=== PATIENT | female | born 2000 | race Caucasian/White ===

== ENCOUNTER 2023-11-06 03:23 | Emergency (ER) | payer BC, SELFPAY ==
[2023-11-06 03:32] VITALS: BP 138/74; PULSE 77; TEMP 36.8; O2SAT 100; BMI 16.3
--- NOTE | 2023-11-06 03:43 | ED_ITS ---
HPI - Abdominal Pain General Chief Complaint: Abdominal Pain Stated Complaint: ABDOMINAL PAIN Time Seen by Provider: 11/06/23 03:27 Source: patient Mode of arrival: walk-in Limitations: no limitations History of Present Illness HPI narrative: 23-year-old female presents for abdominal burning. She has been having issues this past week. She describes a burning sensation from below her ribs all the way down to the lower part of her abdomen. She threw up once. She has not been constipated and has had no diarrhea trauma or fever. Denies any back pain. Related Data Previous Rx's ?Medication ?Instructions ?Recorded omeprazole 40 mg capsule,delayed 40 mg PO DAILY #20 caps 11/06/23 release Allergies Allergy/AdvReac Type Severity Reaction Status Date / Time No Known Drug Allergies Allergy Verified 11/06/23 03:32 Review of Systems ROS Narrative A ten point review of systems is negative except as noted above. Exam Narrative Exam Narrative: Nurses note and vital signs reviewed and patient is not hypoxic. General: The patient appears well and in no apparent distress. Patient is rest ing comfortably on cart. Skin: Warm, dry, no pallor noted. There is no rash noted. Head: Normocephalic, atraumatic Eye: Normal conjunctiva, no drainage Ears, Nose, Mouth, and Throat: oral mucosa is moist. Nares patent. Cardiovascular: Regular Rate and Rhythm Respiratory: Patient is in no distress, no accessory muscle use, lungs are clear to auscultation, no wheezing, rales or rhonchi Back: non-tender GI: Normal bowel sounds, minimal tenderness to palpation, no masses appreciated. No rebound, guarding, or rigidity noted. Musculoskeletal: The patient has no evidence of calf tenderness, no pitting edema, symmetrical pulses noted bilaterally Neurological: A&O, normal speech Psychiatric: Cooperative Constitutional Vital Signs, click to edit/add: Last Vital Signs Temp 98.2 F 11/06/23 03:32 Pulse 77 11/06/23 03:32 Resp 18 11/06/23 03:32 BP 138/74 11/06/23 03:32 Pulse Ox 100 11/06/23 03:32 O2 Del Method Room Air 11/06/23 03:32 Course Vital Signs Vital signs: Vital Signs Temperature 98.2 F 11/06/23 03:32 Pulse Rate 77 11/06/23 03:32 Respiratory Rate 18 11/06/23 03:32 Blood Pressure 138/74 11/06/23 03:32 Pulse Oximetry 100 11/06/23 03:32 Oxygen Delivery Method Room Air 11/06/23 03:32 Temperature 98.2 F 11/06/23 03:32 Pulse Rate 77 11/06/23 03:32 Respiratory Rate 18 11/06/23 03:32 Blood Pressure 138/74 11/06/23 03:32 Pulse Oximetry 100 11/06/23 03:32 Oxygen Delivery Method Room Air 11/06/23 03:32 MDM - Abdominal Pain MDM Narrative Medical decision making narrative: Laboratory analysis is negative. She is not . Urinalysis also negativ e. KUB on my interpretation shows no acute findings. She is placed on omeprazole and will follow-up with her doctor if symptoms persist. Treatment diagnosis and follow-up were discussed with the patient. I have no clinical suspicion for acute appendicitis. Differential Diagnosis Differential diagnosis: Likely abdominal pain, calculus of kidney, constipation, gastroenteritis and pancreatitis Lab Data Attestation: I reviewed the patient's lab results. Labs: Lab Results 11/06/23 11/06/23 Range/Units 03:48 03:52 WBC 7.9 (4.0-11.0) 10^3/uL RBC 4.56 (4.20-5.40) 10^6/uL Hgb 13.7 (12.0-16.0) g/dL Hct 41.7 (36.0-48.0) % MCV 91.4 (81.0-99.0) fL MCH 30.0 (26.7-34.0) pg MCHC 32.9 (29.9-35.2) g/dL RDW 12.5 (11.0-15.0) % Plt Count 316 (150-450) 10^3/uL MPV 9.5 (9.5-13.5) fL Neut % (Auto) 50.0 (43.0-75.0) % Lymph % (Auto) 38.4 (20.5-60.0) % Whiteside % (Auto) 10.1 (1.7-12.0) % Eos % (Auto) 1.0 (0.9-7.0) % Baso % (Auto) 0.4 (0.2-2.0) % Neut # (Auto) 3.9 (1.4-6.5) 10^3/uL Lymph # (Auto) 3.0 (1.2-3.8) 10^3/uL Whiteside # (Auto) 0.8 (0.3-0.8) 10^3/uL Eos # (Auto) 0.1 (0.0-0.7) 10^3/uL Baso # (Auto) 0.0 (0.0-0.1) 10^3/uL Abs Immat Gran (auto) 0.01 (0.00-0.03) 10^3/uL Imm/Tot Granulo (auto) 0.1 (0.0-0.5) % Sodium 137 (136-145) mmol/L Potassium 3.9 (3.5-5.1) mmol/L Chloride 103 (98-107) mmol/L Carbon Dioxide 27.1 (21.0-32.0) mmol/L Anion Gap 10.8 BUN 12.0 (7.0-18.0) mg/dL Creatinine 0.62 (0.55-1.02) mg/dL Est GFR ( Amer) >60 (>=60) Est GFR (Non-Af Amer) >60 (>=60) BUN/Creatinine Ratio 19.4 Glucose 98 (74-106) mg/dL Calcium 9.1 (8.5-10.1) mg/dL Total Bilirubin 0.3 (0.2-1.0) mg/dL Direct Bilirubin 0.1 (0.0-0.2) mg/dL AST 11 L (15-37) U/L ALT 21 (14-59) U/L Alkaline Phosphatase 51 (46-116) U/L Total Protein 7.7 (6.4-8.2) g/dL Albumin 4.0 (3.4-5.0) g/dL Globulin 3.7 g/dL Albumin/Globulin Ratio 1.1 Amylase 63 (25-115) U/L Lipase 39.0 (16.0-77.0) U/L Serum HCG, Qual Negative (NEGATIVE) Urine Color Yellow (YELLOW) Urine Clarity Clear (CLEAR) Urine pH 5.5 (5.0-9.0) Ur Specific [place] >=1.030 A (1.005-1.025) Urine Protein Negative (NEG/TRACE) mg/dL Urine Glucose (UA) Negative (NEGATIVE) mg/dL Urine Ketones Negative (NEGATIVE) mg/dL Urine Occult Blood Negative (NEGATIVE) Urine Nitrite Negative (NEGATIVE) Urine Bilirubin Negative (NEGATIVE) Urine Urobilinogen 0.2 (0.2-1.0) EU/dL Ur Leukocyte Esterase Negative (NEGATIVE) Urine RBC None seen (0-2) #/HPF Urine WBC None seen (NONE SEEN) #/HPF Ur Squamous Epith Cells Few A (NONE/RARE) #/LPF Urine Crystals None seen (None Seen) #/HPF Urine Bacteria None seen (NONE SEEN) #/HPF Urine Casts None seen (NONE SEEN) #/LPF Urine Mucus Trace A (NONE SEEN) Ur Culture Indicated? No Imaging Data Abdominal x-ray: My impression: No acute findings Discharge Plan Discharge Stand Alone Forms: Portal Instructions Chief Complaint: Abdominal Pain Clinical Impression: Abdominal pain Patient Disposition: Home, Self-Care Time of Disposition Decision: 04:36 Condition: Good Mode of Transportation: Private Vehicle Prescriptions / Home Meds: New omeprazole 40 mg capsule,delayed release(DR/EC) 40 mg PO DAILY Qty: 20 0RF Print Language: Slovak Instructions: Abdominal Pain (ED) Referrals: EMELI HANSEN DO [Primary Care Provider] - 1 week
[2023-11-06 03:58] LABS: Bilirubin Urine NEGATIVE (NEGATIVE); Blood Urine NEGATIVE (NEGATIVE); Clarity Urine CLEAR (CLEAR); Color Urine YELLOW (YELLOW); Glucose Urine UA NEGATIVE (NEGATIVE); Ketones Urine NEGATIVE (NEGATIVE); Leukocyte Esterase Urine NEGATIVE (NEGATIVE); Nitrite Urine NEGATIVE (NEGATIVE); Protein Urine NEGATIVE (NEG/TRACE); Specific Gravity Urine >=1.030 (1.005-1.025); Urobilinogen Urine 0.2 EU/dL (0.2-1.0); pH Urine 5.5 (5.0-9.0)
[2023-11-06 03:58] LABS: Basophils Percent Auto 0.4 % (0.2-2.0); Eosinophils Absolute Auto 0.1 10^3/uL (0.0-0.7); Hematocrit 41.7 % (36.0-48.0); Hemoglobin 13.7 g/dL (12.0-16.0); Immature Granulocytes Abs Auto 0.01 10^3/uL (0.00-0.03); Immature Granulocytes Pct Auto 0.1 % (0.0-0.5); Lymphocytes Percent Auto 38.4 % (20.5-60.0); Mean Corpuscular HGB Conc 32.9 g/dL (29.9-35.2); Mean Corpuscular Volume 91.4 fL (81.0-99.0); Mean Platelet Volume 9.5 fL (9.5-13.5); Monocytes Absolute Auto 0.8 10^3/uL (0.3-0.8); Monocytes Percent Auto 10.1 % (1.7-12.0); Neutrophils Absolute Auto 3.9 10^3/uL (1.4-6.5); Platelet Count 316 10^3/uL (150-450); Red Blood Count 4.56 10^6/uL (4.20-5.40); Red Cell Distribution Width 12.5 % (11.0-15.0); White Blood Count 7.9 10^3/uL (4.0-11.0)
--- NOTE | 2023-11-06 04:00 | XR_ITS ---
The [address] [address] Patient Name: KYLE LANDRY MRN: [id number] date: 2000 Sex: F Assigned Patient Location: ER Current Patient Location: Accession/Order Number: [id number] Exam Date: 11/06/2023 04:20 Report Date: 11/06/2023 06:37 At the request of: KAYLI ENRIQUEZ Procedure: XR abdomen 1V HISTORY: Abdominal pain with burning sensations and vomiting for the past week. XR abdomen 1V: 11/06/2023 4:20 AM EDT COMPARISON: None. FINDINGS: A supine view the abdomen was obtained. There is a moderate to large amount of stool throughout the colon. No dilated air-filled loops of small bowel are seen. There are no abnormal calcifications. XR/XR abdomen 1V IMPRESSION: 1. Nonobstructive bowel gas pattern. 2. There is a moderate to large amount of stool throughout the colon suggestive of constipation. Electronically authenticated by: NHAN LAMB Date: 11/06/2023 06:37
[2023-11-06 04:05] LABS: Bacteria Urine NONE SEEN #/HPF (NONE SEEN); Cast Seen? NONE SEEN #/LPF (NONE SEEN); Crystals Seen? None Seen #/HPF (None Seen); Mucus Urine TRACE (NONE SEEN); RBC Urine NONE SEEN #/HPF (0-2); Squamous Epithelial Cell Urine FEW #/LPF (NONE/RARE); Urine Culture Indicated NO; WBC Urine NONE SEEN #/HPF (NONE SEEN)
[2023-11-06 04:12] LABS: HCG Qualitative NEGATIVE (NEGATIVE)
[2023-11-06 04:13] LABS: Alanine Aminotransferase 21 U/L (14-59); Albumin Globulin Ratio 1.1; Alkaline Phosphatase 51 U/L (46-116); Amylase 63 U/L (25-115); Anion Gap 10.8; Aspartate Amino Transferase 11 U/L (15-37); BUN Creatinine Ratio 19.4; Bilirubin Direct 0.1 mg/dL (0.0-0.2); Bilirubin Total 0.3 mg/dL (0.2-1.0); Calcium 9.1 mg/dL (8.5-10.1); Carbon Dioxide 27.1 mmol/L (21.0-32.0); Chloride 103 mmol/L (98-107); Estimated GFR (African America >60 (>=60); Estimated GFR (Non-African Ame >60 (>=60); Globulin 3.7 g/dL; Glucose 98 mg/dL (74-106); Potassium 3.9 mmol/L (3.5-5.1); Sodium 137 mmol/L (136-145); Total Protein 7.7 g/dL (6.4-8.2)
[2023-11-06 04:40] VITALS: BP 130/68; PULSE 82; O2SAT 99
== END 2023-11-06 04:44 | disposition home or self-care (01) ==
PROVIDERS: Emergency Provider Emergency Medicine; PCP Family Medicine
DX: R10.9 Unspecified abdominal pain (principal)
CPT/HCPCS: 36415; 74018; 80048; 80076; 81001; 82150; 83690; 84703; 85025; 99284

== ENCOUNTER 2024-12-10 20:30 | Emergency (ER) | payer OTHER, SELFPAY ==
[2024-12-10 20:32] VITALS: BP 140/88; PULSE 88; TEMP 36.6; O2SAT 99; BMI 18.0
--- OUTSIDE RECORDS SUMMARY | 2024-12-10 20:36 | XMS_ITS | Clinical Summary ---
Author Organization [facility] Address [address] [place] [address] [place] [address] Care Team Providers Care Supervisor [employer] Name Role Phone Unavailable Primary Care Provider Unavailabl e Allergies No known active allergies Medications polyethylene glycol (MiraLax) 17 GM/SCOOP Powder powder 1 capful (17g) in 4-8 ounces of beverage PO QHS 527 g 12/30/2020 Active Social History Tobacco Use Types Packs/Day Years Used Date Smoking Tobacco: Never Smokeless Tobacco: Never Alcohol Use Standard Drinks/Week Comments Yes 0 (1 standard drink = 0.6 oz pur e alcohol) social Comments No Sex and Gender Information Value Date Recorded Sex Assigned at Not on file Legal Sex Female 10:38 PM EDT Gender Identity Not on file Sexual Orientation Not on file Last Filed Vital Signs Vital Sign Reading Time Taken Comments Blood Pressure 135/83 12/29/2020 11:45 PM EDT Pulse 91 12/29/2020 11:45 PM EDT Temperature 36.7 C (98 F) 12/29/2020 5:12 PM EDT Respiratory Rate 16 12/29/2020 11:45 PM EDT Oxygen Saturation 100% 12/29/2020 11:45 PM EDT Inhaled Oxygen Concentration - - Weight - - Height 160 cm (5' 3 ) 12/29/2020 5:13 PM EDT Body Mass Index - - Plan of Treatment Health Maintenance Due Date Last Done Comments HEPATITIS C VIRUS SCREENING 2000 TETANUS 2000 HIV SCREENING DISCUSSION 2013 HPV VACCINE ADOL (1 - 3-dose series) 2013 HPV VACCINE (1 - 3-dose series) 2013 HEP B VACCINE (1 of 3 - 19+ 3-dose series) 2017 TDAP (ADULT) 2017 CERVICAL CANCER SCREENING DISCUSSION 10/17/2019 CHLAMYDIA SCREEN 12/29/2021 12/29/2020 GONORRHEA SCREEN 12/29/2021 12/29/2020 COVID-19 VACCINE (1 - 2023-2 5 season) 2024 INFLUENZA VACCINE (#1) 2025 PNEUMOCOCCAL VACCINE SERIES Aged Out No longer eligible based on patient's age to complete this topic Procedures Procedure Name Priority Date/Time Associated Diagnosis Comments CHLAMYDIA & GONORRHEA AMPLIFIED PROBE Routine 12/29/2020 9:03 PM EDT from Last 3 Months or Most Recently Relevant to Health Maintenance Results * CHLAMYDIA & GONORRHEA AMPLIFIED PROBE (12/29/2020 9:03 PM EDT) Chlamydia trachomatis Amplified Probe Not Detected Not Detected, Indeterminate 12/30/2020 8:13 PM EDT [facility] Neisseria gonorrhea Amplified Probe Not Detected Not Detected 12/30/2020 8:13 PM EDT [facility] Genital Fluid/Swab CERVICAL SWAB / Unknown 12/29/2020 9:03 PM EDT 12/29/2020 9:19 PM EDT [facility] - 12/30/2020 8:13 PM EDT This test was performed using a real time PCR assay. Ac Arvizu MD MICROBIOLOGY - GENERAL ORDERABLE S Final Result [facility] [address] [place] [address] from Last 3 Months or Most Recently Relevant to Health Maintenance Insurance [facility] PPO POS
--- OUTSIDE RECORDS SUMMARY | 2024-12-10 20:36 | XMS_ITS | CCD ---
Author Organization [facility] Care Team Providers Care [address] Pressman Name Role Phone MARY VERGARA Unavailable Unavailable MARY VERGARA Unavailable Unavailable NO, PHYSICIAN Unavailable Unavailable MITCH HANSEN Primary Care Unavailable WARD SERNA Admitting Unavailable WARD SERNA Attending Unavailable WARD SERNA Consulting Unavailable No, Physician Primary Care Provider UnavailVANCE Bond Attending Unavailable VANCE DAS Admitting Unavailable NO, PHYSICIAN Primary Care Unavailable BRISEIDA HINDS Attending Unavailable Unavailable Primary Care Provider UnavailPaulette Haque Unavailable ASH BROCK Attending Unavailable Medications Current Medications Medication Drug Class(es) Dates Sig (Normalized) Sig (Original) dextromethorphan hydrobromide 1.5 mg/ml / pyrilamine maleate 1.5 mg/ml oral solution (1 source) Uncompetitive R-pyjyza-Z-asparta te Receptor Antagonist, Sigma-1 Agonist Start: 3 take 10 mL by mouth every eight hours [place] DM 7.5-7.5 MG/5ML 10 mL Orally every 8 hours for 5 days Feb, Active methylPREDNISolone 4 mg oral tablet (1 source) Corticosteroid Start: 3 methylPREDNISolone 4 MG as directed Orally for daily dose take half with breakfast, half with dinner for 6 days Feb, Active ondansetron 4 mg disintegrating oral tablet (1 source) Serotonin-3 Receptor Antagonist Start: 8 take 1 tablet by mouth every eight hours as needed ondansetron (ZOFRAN ODT) 4 MG disintegrating tablet Dissolve 1 (one) tablet (4 mg total) on top of tongue every 8 (eight) hours as needed for nausea . 20 tablet 0 05/02/2018 Active polyethylene glycol 3350 80831 mg powder for oral solution (1 source) Osmotic Laxative Start: polyethylene glycol (MiraLax) 17 GM/SCOOP Powder powder 1 capful (17g) in 4-8 ounces of beverage PO QHS 527 g 0 12/30/2020 Active Start: 12-30-2020 polyethylene g lycol (MiraLax) 17 GM/SCOOP Powder powder 1 capful (17g) in 4-8 ounces of beverage PO QHS 527 g 0 12/30/2020 Active Completed/Discontinued Medications Medication Drug Class(es) Dates Sig (Normalized) Sig (Original) magnesium citrate 58.2 mg/ml oral solution (1 source) Start: 12-29-2020 End: 12-29-2020 magnesium citrate (MAGCITRATE) oral solution 296 mL 1000 ml sodium chloride 9 mg/ml injection (2 sources) Start: 04-13-2020 End: 04-13-2020 sodium chloride 0.9% (NS) bolus 1,000 mL Problems Active Problems Problem Classification Problem Date Documented Da te Episodic/Chronic Abdominal pain (1 source) Abdominal pain; Translations: [Abdominal pain, unspecified abdominal location] Episodic Cardiac dysrhythmias (2 sources) Tachycardia, unspecified; Translations: [Tachycardia, unspecified] Onset: 05-02-2018 Episodic Fluid and electrolyte disorders (2 sources) Dehydration; Translations: [Dehydration] Onset: 05-02-2018 Episodic Other gastrointestinal disorders (3 sources) Diarrhea, unspecified; Translations: [DIARRHEA UNSPECIFIED] Onset: 05-22-2018 Episodic Other upper respiratory infections (1 source) Acute upper respiratory infection, unspecified Episodic Poisoning by nonmedicinal substances (1 source) Toxic effect of other specified noxious substances eaten as food, accidental (unintentional), initial encounter; Translations: [TOX EFF NOX SUBSTANC EATEN ACC INIT] Onset: 05-24-2018 Spondylosis; intervertebral disc disorders; other back problems (1 source) Acute low back pain; Translations: [Acute bilateral low back pain without sciatica] Episodic Urinary tract infections (2 sources) Acute pyelonephritis; Translations: [Acute pyelonephritis] Onset: 05-02-2018 Episodic Past or Other Problems Problem Classification Problem Date Documented Da te Episodic/Chronic Other gastrointestinal disorders (1 source) Constipation; Translations: [Constipation, unspecified] Episodic Results Test Name Value Interpretation Reference Range Facil ity EXTRA MICROon 12-30-2020 [facility] URINE DIPSTICK; REFLEX MICRO SCOPY; REFLEX CULTURE PERFORMABLEon 12-30-2020 Appearance (U) Clear Normal Clear [facility] Comment on above: Performed By: #### L [id number] #### [facility] (DEFAULT) [address] [place] [address] 72017 Blood Urine Negative Normal Negative [facility] Comment on above: Performed By: #### L [id number] #### [facility] (DEFAULT) [address] [place] [address]62 Color (U) Yellow Normal Yellow [facility] Comment on above: Performed By: #### L [id number] #### [facility] (DEFAULT) [address] [place] [address] 60252 Glucose Ql (U) Negative Normal Negative [facility] Comment on above: Performed By: #### L [id number] #### [facility] (DEFAULT) [address] [place] [address] 42723 Ketones Ql (U) 15 mg/dL = Small Abnormal Negative [facility] Comment on above: Performed By: #### L [id number] #### [facility] (DEFAULT) [address] [place] [address] 92793 Leukocyte esterase Test strip Ql (U) Negative Normal Negative [facility] Comment on above: Performed By: #### L [id number] #### [facility] (DEFAULT) [address] [place] [address] 93458 Nitrites Urine Negative Normal Negative [facility] Comment on above: Performed By: #### L [id number] #### [facility] (DEFAULT) [address] [address] pH (U) 5.0 [pH] Normal 5.0-7.0 [facility] Comment on above: Performed By: #### L [id number] #### [facility] (DEFAULT) [address] [place] [address] 35086 Protein Urine Trace Abnormal Negative [facility] Comment on above: Performed By: #### L [id number] #### [facility] (DEFAULT) [address] [address] Specific [place] Urine >=1.030 Normal >1.001-<1.035 [facility] Comment on above: Performed By: #### L [id number] #### [facility] (DEFAULT) [address] [address] Urobilinogen Urine 0.2 E.U./dL Normal 0.2-1.0 [facility] Comment on above: Performed By: #### L [id number] #### [facility] (DEFAULT) [address] [address] BETA HCG, QUANT, BLOODon HCG (Quant) Serum <2.6 Normal [facility] Comment on above: Result Comment: Non- : <10 mIU/mL Postmenopause: <10 mIU/mL Male: <10 mIU/mL FEMALE GESTATIONAL AGE 2-4 Weeks: 39.1-8,388 mIU/mL 5-6 Weeks: 861-88,769 mIU/mL 6-8 Weeks: 8,636-218,085 mIU/mL 8-10 Weeks: 18,700-244,467 mIU/mL 10-12 Weeks: 23,143-181,899 mIU/mL 13-27 Weeks: 6,303-97,171 mIU/mL 24-40 Weeks: 4,360-74,883 mIU/mL Test results cannot be interpreted as absolute evidence for the presence or absence of malignant disease. Performed By: #### Q HCGB #### [facility] (DEFAULT) [address] [address] CBC AND ELECTRONIC DIFFon Basophils (Bld) [#/Vol] 10*3/uL Normal 0.00-0.[address] [facility] Comment on above: Performed By: #### L [id number] #### [facility] (DEFAULT) [address] [place] [address] 73883 Basophils/100 WBC (Bld) 0.2 % Normal O [facility] Comment on above: Performed By: #### L [id number] #### [facility] (DEFAULT) [address] [place] [address]26 DIFF STATUS Electronic Differential Normal [facility] Comment on above: Performed By: #### L [id number] #### [facility] (DEFAULT) [address] [place] [address]80 Eosinophils (Bld) [#/Vol] 10*3/uL Normal 0.00-0.42 [facility] Comment on above: Performed By: #### L [id number] #### [facility] (DEFAULT) [address] [place] [address] 35877 Eosinophils/100 WBC (Bld) 0.0 % Normal [facility] Comment on above: Performed By: #### L [id number] #### [facility] (DEFAULT) [address] [place] [address]807 Hematocrit (Bld) [Volume fraction] 41.2 % Normal 34.9-44.3 [facility] Comment on above: Performed By: #### L [id number] #### [facility] (DEFAULT) [address] [address] Hemoglobin (Bld) [Mass/Vol] 13.9 g/dL Normal 11.4-15.2 [facility] Comment on above: Performed By: #### L [id number] #### [facility] (DEFAULT) [address] [place] [address] 84983 Immature Grans % 0.3 % Normal [facility] Comment on above: Performed By: #### L [id number] #### [facility] (DEFAULT) [address] [address] Immature Grans Absolute 0.04 K/uL Normal <=0.[address] [facility] Comment on above: Performed By: #### L [id number] #### [facility] (DEFAULT) [address] [place] [address]26 Lymphocytes (Bld) [#/Vol] 1.01 10*3/uL Low 1.16-3.51 [facility] Comment on above: Performed By: #### L [id number] #### [facility] (DEFAULT) [address] [place] [address] 86115 Lymphocytes/100 WBC (Bld) 8.6 % Normal [facility] Comment on above: Performed By: #### L [id number] #### [facility] (DEFAULT) [address] [place] [address] 30582 MCV (RBC) [Entitic vol] 87.1 fL Normal 79.6-97.7 [facility] Comment on above: Performed By: #### L [id number] #### [facility] (DEFAULT) [address] [address] Mean Cell Hgb 29.4 pg Normal 25.9-33.9 [facility] Comment on above: Performed By: #### L [id number] #### [facility] (DEFAULT) [address] [address] Mean Cell Hgb Conc 33.7 g/dL Normal 31.4-35.9 [facility] Comment on above: Performed By: #### L [id number] #### [facility] (DEFAULT) [address] [place] [address] Monocytes (Bld) [#/Vol] 0.51 10*3/uL Normal 0.22-0.87 [facility] Comment on above: Performed By: #### L [id number] #### [facility] (DEFAULT) [address] [address] Monocytes/100 WBC (Bld) 4.3 % Normal [facility] Comment on above: Performed By: #### L [id number] #### [facility] (DEFAULT) [address] [place] [address]281 Nucleated RBC 0.0 /100 WBC Normal <=0.2 [facility] Comment on above: Performed By: #### L [id number] #### [facility] (DEFAULT) [address] [place] [address] 41927 Platelet mean volume (Bld) [Entitic vol] 10.1 fL Normal 8.5-12.2 [facility] Comment on above: Performed By: #### L [id number] #### [facility] (DEFAULT) [address] [place] [address] 11002 Platelets (Bld) [#/Vol] 282 10*3/uL Normal 150-393 [facility] Comment on above: Performed By: #### L [id number] #### [facility] (DEFAULT) [address] [place] [address] 67573 RBC (Bld) [#/Vol] 4.73 10*6/uL Normal 3.91-5.04 [facility] Comment on above: Performed By: #### L [id number] #### [facility] (DEFAULT) [address] [place] [address] 57213 RBC Distribution 12.4 % Normal 10.8-14.9 [facility] Comment on above: Performed By: #### L [id number] #### U [facility] (DEFAULT) [address] [place] [address]159 Segs + Bands Auto 86.6 % Normal [facility] Comment on above: Performed By: #### L [id number] #### [facility] (DEFAULT) [address] [place] [address]281 Segs + Bands,Absolute Auto 10.18 K/uL High 1.64-7.28 [facility] Comment on above: Performed By: #### L [id number] #### [facility] (DEFAULT) [address] [place] [address] 08102 WBC (Bld) [#/Vol] 11.76 10*3/uL High 3.99-11.19 [facility] Comment on above: Performed By: #### L [id number] #### [facility] [address] [place] [address] Basophils (Bld) [#/Vol] 10*3/uL 0.00 - 0.15 K/uL [facility] Basophils/100 WBC (Bld) 0.2 % O [facility] DIFF STATUS Electronic Differential [facility] Eosinophils (Bld) [#/Vol] 10*3/uL 0.00 - 0.42 K/uL [facility] Eosinophils/100 WBC (Bld) 0.0 % [facility] Erythrocyte distribution width (RBC) [Ratio] 12.4 % 10.8 - 14.9 % [facility] Hematocrit (Bld) [Volume fraction] 41.2 % 34.9 - 44.3 % [facility] Hemoglobin (Bld) [Mass/Vol] 13.9 g/dL 11.4 - 15.2 g/dL [facility] Immature granulocytes (Bld) [#/Vol] 0.04 10*3/uL <=0.09 [facility] Immature granulocytes/100 WBC (Bld) 0.3 % [facility] Interpretation and review of laboratory results Abnormal [facility] Lymphocytes (Bld) [#/Vol] 1.01 10*3/uL Low 1.16 - 3.51 K/uL [facility] Lymphocytes/100 WBC (Bld) 8.6 % [facility] MCH (RBC) [Entitic mass] 29.4 pg 25.9 - 33.[address] [facility] MCHC (RBC) [Mass/Vol] 33.7 g/dL 31.4 - 35.9 g/dL [facility] MCV (RBC) [Entitic vol] 87.1 fL 79.6 - 97.[address] [facility] Monocytes (Bld) [#/Vol] 0.51 10*3/uL 0.22 - 0.87 K/uL [facility] Monocytes/100 WBC (Bld) 4.3 % [facility] Neutrophils (Bld) [#/Vol] 10.18 10*3/uL High 1.64 - 7.28 K/uL [facility] Nucleated RBC/100 WBC (Bld) [Ratio] 0.0 % <=0.2 /[address] [facility] Platelet mean volume (Bld) [Entitic vol] 10.1 fL 8.5 - 12.[address] [facility] Platelets (Bld) [#/Vol] 282 10*3/uL 150 - 393 K /uL [facility] RBC (Bld) [#/Vol] 4.73 10*6/uL [facility] Segmented neutrophils/100 WBC (Bld) 86.6 % [facility] WBC (Bld) [#/Vol] 11.76 10*3/uL High 3.99 - 11 .19 K/uL [facility] CHEM 6 (LYTES, BUN CREA)on 0 12-29-2020 Anion gap [Moles/Vol] 12 mmol/L Normal 7-17 [facility] Comment on above: Performed By: #### C HM6, LIPA, GLUC, HFP #### [facility] (DEFAULT) [address] [place] [address] Chloride [Moles/Vol] 105 mmol/L Normal 98-108 [facility] Comment on above: Performed By: #### C HM6, LIPA, GLUC, HFP #### [facility] (DEFAULT) [address] [place] [address] 8[address]26 CO2 [Moles/Vol] 23 mmol/L Normal 22-30 [facility] Comment on above: Performed By: #### C HM6, LIPA, GLUC, HFP #### [facility] (DEFAULT) [address] [place] [address] 56796 Creatinine [Mass/Vol] 0.72 mg/dL Normal 0.50-1.20 [facility] Comment on above: Performed By: #### C HM6, LIPA, GLUC, HFP #### [facility] (DEFAULT) [address] [place] [address] 57665 EST GFR, >=60 Normal >=60 [facility] Comment on above: Performed By: #### C HM6, LIPA, GLUC, HFP #### [facility] (DEFAULT) [address] [place] [address]281 EST GFR,Non >=60 Normal >=60 [facility] Comment on above: Performed By: #### C HM6, LIPA, GLUC, HFP #### [facility] (DEFAULT) [address] [place] [address] 48942 Potassium [Moles/Vol] 4.3 mmol/L Normal 3.5-5.0 [facility] Comment on above: Performed By: #### C HM6, LIPA, GLUC, HFP #### [facility] (DEFAULT) [address] [place] [address]672 Sodium [Moles/Vol] 136 mmol/L Normal 133-143 [facility] Comment on above: Performed By: #### C HM6, LIPA, GLUC, HFP #### [facility] (DEFAULT) [address] [place] [address] 61191 Urea nitrogen [Mass/Vol] 12 mg/dL Normal 7-22 [facility] Comment on above: Performed By: #### C HM6, LIPA, GLUC, HFP #### [facility] (DEFAULT) [address] [place] [address]9556 Urea nitrogen/Creatinine [Mass ratio] 17 mg/mg Normal [facility] Comment on above: Performed By: #### C HM6, LIPA, GLUC, HFP #### [facility] (DEFAULT) [address] [place] [address]22 Anion gap [Moles/Vol] 12 mmol/L 7 - 17 mmol/L [facility] Chloride [Moles/Vol] 105 mmol/L 98 - 108 mmol/L [facility] CO2 [Moles/Vol] 23 mmol/L 22 - 30 mmol/L [facility] Creatinine [Mass/Vol] 0.72 mg/dL 0.50 - 1.20 mg/dL [facility] Potassium [Moles/Vol] 4.3 mmol/L 3.5 - 5.0 mmol/L [facility] Sodium [Moles/Vol] 136 mmol/L 133 - 143 mmol/L [facility] Urea nitrogen [Mass/Vol] 12 mg/dL 7 - 22 mg/dL [facility] Urea nitrogen/Creatinine [Mass ratio] 17 mg/mg [facility] CHLAMYDIA & GONORRHEA AMPLIF IED PROBEon 12-29-2020 Chlamydia trachomatis Amplified Probe Not detected Normal Not Detected, Indeterminate [facility] Comment on above: Order Comment: This test was performed using a real time PCR assay. Performed By: #### G CSCRN #### [facility] (DEFAULT) [address] [place] [address]21 Neisseria gonorrhea Amplified Probe Not detected Normal Not Detected [facility] Comment on above: Order Comment: This test was performed using a real time PCR assay. Performed By: #### G CSCRN #### [facility] (DEFAULT) [address] [place] [address]77 GLUCOSEon 12-29-2020 Glucose [Mass/Vol] 119 mg/dL High 70-99 [facility] Comment on above: Performed By: #### C HM6, LIPA, GLUC, HFP #### [facility] (DEFAULT) [address] [place] [address]15 Glucose [Mass/Vol] 119 mg/dL High 70 - 99 mg/dL [facility] HCG ( test) Qlon HCG.beta subunit [Moles/Vol] mmol/L mIU/mL [facility] Comment on above: Non-: <10 mI U/mL Postmenopause: <10 mIU/mL Male: <10 mIU/mL FEMALE GESTATIONAL AGE 2-4 Weeks: 39.1-8,388 mIU/mL 5-6 Weeks: 861-88,769 mIU/mL 6-8 Weeks: 8,636-218,085 mIU/mL 8-10 Weeks: 18,700-244,467 mIU/mL 10-12 Weeks: 23,143-181,899 mIU/mL 13-27 Weeks: 6,303-97,171 mIU/mL 24-40 Weeks: 4,360-74,883 mIU/mL Test results cannot be interpreted as absolute evidence for the presence or absence of malignant disease. [facility] HEPATIC FUNCTION PANELon Albumin [Mass/Vol] 4.8 g/dL Normal 3.5-5.0 [facility] Comment on above: Performed By: #### C HM6, LIPA, GLUC, HFP #### [facility] (DEFAULT) [address] [place] [address] 68199 ALP [Catalytic activity/Vol] 38 U/L Normal 32-126 [facility] Comment on above: Performed By: #### C HM6, LIPA, GLUC, HFP #### [facility] (DEFAULT) [address] [place] [address] 51270 ALT [Catalytic activity/Vol] 9 U/L Normal 9-48 [facility] Comment on above: Performed By: #### C HM6, LIPA, GLUC, HFP #### [facility] (DEFAULT) [address] [place] [address] 94283 AST [Catalytic activity/Vol] 12 U/L Low 14-40 [facility] Comment on above: Performed By: #### C HM6, LIPA, GLUC, HFP #### [facility] (DEFAULT) [address] [place] [address] 10557 Bilirubin [Mass/Vol] 0.4 mg/dL Normal <1.5 [facility] Comment on above: Performed By: #### C HM6, LIPA, GLUC, HFP #### [facility] (DEFAULT) [address] [place] [address] 62491 Bilirubin.indirect [Mass/Vol] 0.1 mg/dL Normal <0.3 [facility] Comment on above: Performed By: #### C HM6, LIPA, GLUC, HFP #### [facility] (DEFAULT) [address] [place] [address] Protein [Mass/Vol] 7.6 g/dL Normal 6.4-8.3 [facility] Comment on above: Performed By: #### C HM6, LIPA, GLUC, HFP #### [facility] (DEFAULT) [address] [place] [address] 57496 Albumin [Mass/Vol] 4.8 g/dL 3.5 - 5.0 g/dL OS [facility] ALP [Catalytic activity/Vol] 38 U/L 32 - 126 U/L [facility] ALT [Catalytic activity/Vol] 9 U/L 9 - 48 U/L [facility] AST [Catalytic activity/Vol] 12 U/L Low 14 - 40 U/L [facility] Bilirubin [Mass/Vol] 0.4 mg/dL <1.5 [facility] Bilirubin.direct [Mass/Vol] 0.1 mg/dL <0.3 [facility] Protein [Mass/Vol] 7.6 g/dL 6.4 - 8.3 g/dL OS [facility] LIPASEon 12-29-2020 Lipase [Catalytic activity/Vol] 9 U/L Low 11-82 [facility] Comment on above: Performed By: #### C HM6, LIPA, GLUC, HFP #### [facility] (DEFAULT) [address] [place] [address] 40349 Lipase [Catalytic activity/Vol] 9 U/L Low 11 - 82 U/L [facility] Laboratory - Chemistry and C hemistry - challengeon 12-29-2020 GFR/1.73 sq M.predicted MDRD (S/P/Bld) [Vol rate/Area] mL/min/{1.73_m2} >=60 mL/min/1.73sqM [facility] Laboratory - Microbiology an d Antimicrobial susceptibilityOrdered By: Nabeel Littlejohn on 12-29-2020 Bacterial vaginosis and vaginitis DNA panel Probe+sig amp (Vag fld) Negative Negative [facility] No Panel Informationon 12-29 Interpretation and review of laboratory results Abnormal [facility] URINE DIPSTICK; REFLEX MICRO SCOPY; REFLEX CULTURE PERFORMABLEon 12-29-2020 Appearance (U) Clear Clear [facility] Color (U) Yellow Yellow [facility] Glucose Test strip (U) [Mass/Vol] Negative Negative [facility] Interpretation and review of laboratory results Abnormal [facility] Ketones (U) [Mass/Vol] 15 mg/dL = Small Abnormal Negativ e [facility] Leukocyte esterase Test strip Ql (U) Negative Negative [facility] Nitrite Ql (U) Negative Negative [facility] pH (U) 5.0 [pH] 5.0 - 7.0 [facility] Protein (U) [Mass/Vol] Trace Abnormal Negative OS [facility] RBC (U) [#/Vol] Negative Negative [facility] Specific gravity (U) [Rel density] >=1.030 [facility] Urobilinogen (U) [Mass/Vol] 0.2 E.U./dL 0.2 - 1.0 [facility] VAGINITIS DNA PROBESon 12-29 DNA Probe Rocio Species Negative Normal Negative [facility] Comment on above: Order Comment: Vagin itis probe ambient temperature transport system (white swab). Vaginal collection only. Performed By: #### T GCM #### [facility] (DEFAULT) [address] [place] [address]59 DNA Probe Gardnerella Negative Normal Negative [facility] Comment on above: Order Comment: Vagin itis probe ambient temperature transport system (white swab). Vaginal collection only. Performed By: #### T GCM #### [facility] (DEFAULT) [address] [place] [address] 31730 DNA Probe Trichomonas Negative Normal Negative [facility] Comment on above: Order Comment: Vagin itis probe ambient temperature transport system (white swab). Vaginal collection only. Performed By: #### T GC #### [facility] (DEFAULT) [address] [address] VAGINITIS DNA PROBESOrdered By: Nabeel Littlejohn on 12-29-2020 Interpretation and review of laboratory results Normal [facility] URINALYSISon 04-13-2020 Bacteria Auto Ql (U) Few Abnormal None Seen /hpf [facility] Bilirubin Ql (U) Negative Negative [facility] th Calcium oxalate crystals Computer assisted (U) [#/Area] Rare Abnormal None Seen /hpf [facility] Clarity Refractometry automated (U) Hazy Abnormal Clear [facility] Color (U) Yellow Colorless, Yellow [facility] Epithelial cells.squamous Auto (Urine sed) [#/Area] 5 High [facility] Glucose Auto test strip (U) [Mass/Vol] Negative Negative mg/dL [facility] Hemoglobin Auto test strip Ql (U) Negative Negative [facility] Interpretation and review of laboratory results Abnormal [facility] Ketones (U) [Mass/Vol] 20 Abnormal Negative mg/d L [facility] Leukocyte esterase Auto test strip Ql (U) Negative Negative [facility] Mucus Auto (Urine sed) [#/Area] Few Abnormal None Seen, Rare /lpf [facility] Nitrite Auto test strip Ql (U) Negative Negative [facility] pH (U) 5.0 [pH] [facility] Protein (U) [Mass/Vol] Negative Negative mg/d L [facility] RBC Auto (Urine sed) [#/Area] 2 [facility] Specific gravity (U) [Rel density] 1.038 High [facility] Urobilinogen (U) [Mass/Vol] <2.0 <2.0 mg/dL [facility] WBC Auto (Urine sed) [#/Area] 1 [facility] Microscopic examination is performed on all urinalysis samples and only positive findings are reported. The test for blood on the chemical analytic portion of urinalysis may also be positive due to hemoglobinuria and myoglobinuria and if red blood cells are present they are quantified by microscopic examination. [facility] CBC WITH AUTO DIFFERENTIALon 04-12-2020 Basophils (Bld) [#/Vol] 0.04 10*3/uL [facility] Basophils/100 WBC (Bld) 0.3 % [facility] Eosinophils (Bld) [#/Vol] 0.01 10*3/uL [facility] Eosinophils/100 WBC (Bld) 0.1 % [facility] Erythrocyte distribution width (RBC) [Entitic vol] 12.9 % 11.6 - 14.8 % [facility] Hematocrit (Bld) [Volume fraction] 46.0 % 36 - 46 % [facility] Hemoglobin (Bld) [Mass/Vol] 14.9 g/dL 12 - 16 g/dL [facility] Immature granulocytes (Bld) [#/Vol] 0.02 10*3/uL [facility] Immature granulocytes/100 WBC (Bld) 0.20 % [facility] Comment on above: The IG parameter is the percentage of metamyelocytes, myelocytes and promyelocytes. An immature granulocyte count (IG) of 1% or more suggests the possibility of infection, an IG count of 3% is very likely related to an infection. Interpretation and review of laboratory results Abnormal [facility] Lymphocytes (Bld) [#/Vol] 2.25 10*3/uL [facility] Lymphocytes/100 WBC (Bld) 18.6 % [facility] MCH (RBC) [Entitic mass] 28.9 pg 26 - 34 pg [facility] MCHC (RBC) [Mass/Vol] 32.4 g/dL 31 - 37 g/dL [facility] MCV (RBC) [Entitic vol] 89.1 fL 80 - 100 fL [facility] Monocytes (Bld) [#/Vol] 0.65 10*3/uL [facility] Monocytes/100 WBC (Bld) 5.4 % [facility] Neutrophils (Bld) [#/Vol] 9.14 10*3/uL High [facility] Neutrophils/100 WBC (Bld) 75.4 % [facility] Nucleated RBC (Bld) [#/Vol] 0.00 10*3/uL [facility] Nucleated RBC/100 WBC (Bld) [Ratio] 0.0 % [facility] Platelet mean volume (Bld) [Entitic vol] 9.4 fL 9.4 - 12.4 fL [facility] Platelets (Bld) [#/Vol] 368 10*3/uL [facility] RBC (Bld) [#/Vol] 5.16 10*6/uL [facility] ealth WBC (Bld) [#/Vol] 12.11 10*3/uL [facility] Chem 7on 04-12-2020 Anion gap [Moles/Vol] 17 mmol/L 10 - 20 mmol/L [facility] Chloride [Moles/Vol] 102 mmol/L 98 - 108 mmol/L [facility] Creatinine [Mass/Vol] 0.61 mg/dL 0.40 - 1.10 [facility] GFR/1.73 sq M predicted among non-blacks MDRD (S/P/Bld) [Vol rate/Area] The eGFR should be used for monitoring renal function only and not for medication dosing. [facility] GFR/1.73 sq M.predicted CKD-EPI (S/P/Bld) [Vol rate/Area] 130 >=60 mL/min/1.73 m2 [facility] Glucose [Mass/Vol] 108 mg/dL High 65 - 99 mg/dL [facility] HCO3 [Moles/Vol] 24 mmol/L 21 - 32 mmol/L [facility] Interpretation and review of laboratory results Abnormal [facility] Potassium [Moles/Vol] 4.3 mmol/L 3.5 - 5.1 mmol/L [facility] Sodium [Moles/Vol] 139 mmol/L 135 - 145 mmol/L [facility] Urea nitrogen [Mass/Vol] 10 mg/dL 8 - 25 mg/dL [facility] Urea nitrogen/Creatinine [Mass ratio] 16.4 mg/mg [facility] Otheron 04-12-2020 Extra Tube Hold for add-ons. [facility] Comment on above: Auto resulted. URINALYSISon 04-12-2020 Bacteria Auto Ql (U) Rare Abnormal None Seen /hpf [facility] Bilirubin Ql (U) Negative Negative [facility]ract[facility] automated (U) Hazy Abnormal Clear [facility] Color (U) Yellow Colorless, Yellow [facility] Epithelial cells.squamous Auto (Urine sed) [#/Area] 14 High [facility] Glucose Auto test strip (U) [Mass/Vol] Negative Negative mg/dL [facility] Hemoglobin Auto test strip Ql (U) Negative Negative [facility] Interpretation and review of laboratory results Abnormal [facility] Ketones (U) [Mass/Vol] Negative Negative mg/d L [facility] Leukocyte esterase Auto test strip Ql (U) Trace Abnormal Negative [facility] Mucus Auto (Urine sed) [#/Area] Many Abnormal None Seen, Rare /lpf [facility] Nitrite Auto test strip Ql (U) Negative Negative [facility] pH (U) 6.0 [pH] [facility] Protein (U) [Mass/Vol] Negative Negative mg/d L [facility] RBC Auto (Urine sed) [#/Area] 2 [facility] Specific gravity (U) [Rel density] 1.032 High [facility] Transitional cells Computer assisted (U) [#/Area] <1 [facility] Urobilinogen (U) [Mass/Vol] <2.0 <2.0 mg/dL [facility] WBC Auto (Urine sed) [#/Area] 3 [facility] Microscopic examination is performed on all urinalysis samples and only positive findings are reported. The test for blood on the chemical analytic portion of urinalysis may also be positive due to hemoglobinuria and myoglobinuria and if red blood cells are present they are quantified by microscopic examination. [facility] Urine Pregnancyon 04-12-2020 HCG ( test) Ql (U) Negative Negative [facility] Interpretation and review of laboratory results Normal [facility] LACTOFERRIN FECAL QUANTon Lactoferrin, Fecal, Quant. 60.80 ug/mL(g) Critically high 0.00-7.24 [facility] Comment on above: Result Comment: Re sults verified by repeat testing . Baseline (normal) 0.00 - 7.24 Elevated >7.24 . An elevated result is indicative of the presence of fecal lactoferrin, a marker of intestinal inflammation. A normal result does not exclude the presence of intestinal inflammation. The test can be used as an in vitro diagnostic aid to distinguish patients with active inflammatory bowel disease (IBD) from those with non-inflammatory irritable bowel syndrome (IBS). Performed By: #### L ACTFQ #### [facility] [address] [place], [place] [address]yocasta Graff CLOSTRIDIUM DIFFICILE PCRon 05-23-2018 C difficile Toxin Gene AJAY Negative Normal Negative [facility] Comment on above: Performed By: #### C DIFNAA #### [facility] [address] [place] [address] Sherwin Graff CBC AUTO DIFFon 05-22-2018 Basophils #/vol (Bld) 0.0 103/ul Normal 0.0-0.1 [facility] Comment on above: Performed By: #### C BC #### [facility] [address] [place] [address] Sherwin Prerna Basophils/100 WBC (Bld) 0.9 % Normal 0.2-2.0 [facility] Comment on above: Performed By: #### C BC #### [facility] [address] [place] [address] Sherwin Prerna Eosinophils #/vol (Bld) 0.0 103/ul Normal 0.0-0.7 [facility] Comment on above: Performed By: #### C BC #### [facility] [address] [place] [address] Sherwin Prerna Eosinophils/100 WBC (Bld) 1.2 % Normal 0.9-7.0 [facility] Comment on above: Performed By: #### C BC #### [facility] [address] [place] [address] Sherwin Prerna Erythrocyte distribution width Ratio (RBC) 13.3 % Normal 11.0-15.0 [facility] Comment on above: Performed By: #### C BC #### [facility] [address] [place] [address] Sherwin Prerna Hematocrit Volume Fraction (Bld) 38.9 % Normal 36.0-48.0 [facility] Comment on above: Performed By: #### C BC #### [facility] [address] [place] [address] Sherwin Prerna Hemoglobin mass conc (Bld) 12.3 g/dL Normal 12.0-16.0 [facility] Comment on above: Performed By: #### C BC #### [facility] [address] [place] [address] Sherwin Prerna IG # 0.01 10e3/ul Normal 0.00-0.03 [facility] Comment on above: Performed By: #### C BC #### [facility] [address] [place] [address] Sherwin Prerna IG % 0.3 % Normal 0.0-0.5 [facility] Comment on above: Performed By: #### C BC #### [facility] [address] [place] [address] Sherwin Prerna Lymphocytes #/vol (Bld) 1.2 103/ul Normal 1.2-3.8 [facility] Comment on above: Performed By: #### C BC #### [facility] [address] [place], [place] [id number] Sherwin Graff Lymphocytes/100 WBC (Bld) 37.5 % Normal 20.5-60.0 [facility] Comment on above: Performed By: #### C BC #### [facility] [address] [place] [address] Sherwin Graff MANUAL DIFF REQ NO Normal [facility] Comment on above: Performed By: #### C BC #### [facility] [address] [place] [address] Sherwin Graff MCH Entitic mass (RBC) 25.8 pg Critically low 26.7-34.0 [facility] Comment on above: Performed By: #### C BC #### [facility] [address] [place] [address] Sherwin Graff MCHC mass conc (RBC) 31.6 g/dL Normal 29.9-35.2 [facility] Comment on above: Performed By: #### C BC #### [facility] [address] [place] [address] Sherwin Graff MCV Entitic volume (RBC) 81.7 fL Normal 81.0-99.0 [facility] Comment on above: Performed By: #### C BC #### [facility] [address] [place] [address] Sherwin Graff Monocytes #/vol (Bld) 0.4 103/ul Normal 0.3-0.8 [facility] Comment on above: Performed By: #### C BC #### [facility] [address] [place] [address] Sherwin Graff Monocytes/100 WBC (Bld) 12.4 % Critically high 1.7-12. 0 [facility] Comment on above: Performed By: #### C BC #### [facility] [address] [place] [address] Sherwin Graff Neutrophils #/vol (Bld) 1.5 103/ul Normal 1.4-6.5 [facility] Comment on above: Performed By: #### C BC #### [facility] [address] [place] [address] Sherwin Graff Neutrophils/100 WBC (Bld) 47.7 % Normal 43.0-75.0 [facility] Comment on above: Performed By: #### C BC #### [facility] [address] [place], [place] [id number] Sherwin Graff Platelet mean volume Entitic volume (Bld) 9.6 fL Normal 9.5-13.5 [facility] Comment on above: Performed By: #### C BC #### [facility] [address] [place] [address] Sherwin Graff Platelets #/vol (Bld) 270 103/ul Normal 150-450 [facility] Comment on above: Performed By: #### C BC #### [facility] [address] [place] [address] Sherwin Graff RBC #/vol (Bld) 4.76 106/ul Normal 4.20-5.40 [facility] Comment on above: Performed By: #### C BC #### [facility] [address] [place], [place] [id number] Sherwin Graff WBC #/vol (Bld) 3.2 103/ul Critically low 4.0-11.0 [facility] Comment on above: Performed By: #### C BC #### [facility] [address] [place], [place] [id number] Sherwin Graff CULTURE STOOLon 05-22-2018 CULTURE STOOL Culture Observations: NO GROWTH OF SALMONELLA, SHIGELLA, YERSINIA, CAMPYYLOBACTER, STAPHYLOCOCCUS, Culture Observations: OR E. COLI 0157 AT 72 HOURS. Normal [facility] Comment on above: Performed By: #### S TOOLCX #### [facility] [address] [place] [address] Sherwin Graff ER URINE PROFILEon 8 Bilirubin mass conc MODERATE Normal NEGATIVE The [facility] Comment on above: Performed By: #### GEORGIA NOLASCO #### [facility] [address] [place] [address] Sherwin Prerna BLOOD Negative Normal NEGATIVE [facility] Comment on above: Performed By: #### BEVERLY NOLASCORO #### [facility] [address] [place] [address] Sherwin Prerna Clarity Nom (U) CLEAR Normal [facility] Comment on above: Performed By: #### BEVERLY NOLASCORO #### [facility] [address] [place] [address] Sherwin Prerna Color Nom (U) YELLOW Normal YELLOW [facility] Comment on above: Performed By: #### BEVERLY NOLASCORO #### [facility] [address] [place] [address] Sherwin Prerna ERUAHD A micrscopic examination will be performed if indicated. Normal [facility] Comment on above: Performed By: #### BEVERLY NOLASCORO #### [facility] [address] [place] [address] Sherwin Prerna Glucose mass conc Negative Normal NEGATIVE [facility] Comment on above: Performed By: #### BEVERLY NOLASCORO #### [facility] [address] [place] [address] Sherwin Prerna Ketones Ql (U) 15 mg/dl Normal NEGATIVE [facility] Comment on above: Performed By: #### BEVERLY NOLASCORO #### [facility] [address] [place] [address] Sherwin Prerna Nitrite Ql (U) Negative Normal NEGATIVE [facility] Comment on above: Performed By: #### BEVERLY NOLASCORO #### [facility] [address] [place] [address] Sherwin Prerna pH (Bld) 5.5 Normal 5-9 [facility] Comment on above: Performed By: #### BEVERLY NOLASCORO #### [facility] [address] [place] [address] Sherwin Prerna Protein mass conc (U) 30 mg/dL Normal [facility] Comment on above: Performed By: #### GEORGIA NOLASCO #### [facility] [address] [place], [place] [id number] Sherwin Graff SPEC GRAVITY >=1.030 Normal 1.005-<=1.025 [facility] Comment on above: Performed By: #### GEORGIA NOLASCO #### [facility] [address] [place], [place] [id number] Sherwin Graff UR MICRO IND INDICATED Normal [facility] Comment on above: Performed By: #### GEORGIA NOLASCO #### [facility] [address] [place], [place] [id number] Sherwin Graff Urobilinogen Qn (U) 1.0 EU/dl Normal [facility] Comment on above: Performed By: #### GEORGIA NOLASCO #### [facility] [address] [place], [place] [address] Sherwinyocasta Graff WBC #/vol (Bld) Negative Normal NEGATIVE [facility] Comment on above: Performed By: #### GEORGIA NOLASCO #### [facility] [address] [place], [place] [address] Sherwin Graff PROF 14(COMP METB)on 018 Albumin mass conc 3.7 g/dL Normal 3.5-5.0 [facility] Comment on above: Performed By: #### C MP #### [facility] [address] [place], [place] [address] Sherwin Goelen Albumin/Globulin mass ratio 1.0 {ratio} Normal [facility] Comment on above: Performed By: #### C MP #### [facility] [address] [place], [place] [address] Sherwin Prerna ALP enzyme act/vol 53 U/L Normal 38-126 [facility] Comment on above: Performed By: #### C MP #### [facility] [address] [place], [place] [address] Sherwin Prerna ALT enzyme act/vol 20 U/L Normal 9-52 [facility] Comment on above: Performed By: #### C MP #### [facility] [address] [address] Sherwinyocasta Graff Anion gap molar conc 16.1 mmol/L Normal [facility] Comment on above: Performed By: #### C MP #### [facility] [address] [id number] Sherwin Graff AST enzyme act/vol 19 U/L Normal 14-36 [facility] Comment on above: Performed By: #### C MP #### [facility] [address] [address] Sherwinyocasta Graff Bilirubin Ql (U) 0.2 mg/dL Normal 0.2-1.3 [facility] Comment on above: Performed By: #### C MP #### [facility] [address] [address] Sherwin Prerna Calcium mass conc 9.4 mg/dL Normal 8.4-10.2 [facility] Comment on above: Performed By: #### C MP #### [facility] [address] [address] Sherwin Prerna Chloride molar conc 104 mmol/L Normal 98-107 [facility] Comment on above: Performed By: #### C MP #### [facility] [address] [address] Sherwin Prerna CO2 molar conc 23.5 mmol/L Normal 22.0-30.0 [facility] Comment on above: Performed By: #### C MP #### [facility] [address] [address] Sherwin Prerna Creatinine mass conc 0.88 mg/dL Normal 0.52-1.04 [facility] Comment on above: Performed By: #### C MP #### [facility] [address] [address] Sherwin Prerna EGFR-AF NEPALESE >60 Normal >=60 [facility] Comment on above: Performed By: #### C MP #### [facility] [address] [address] Sherwin Prerna EGFR-NON AF NEPALESE >60 Normal >=60 [facility] Comment on above: Performed By: #### C MP #### [facility] [address] [id number] Sherwin Prerna Globulin mass conc (S) 3.7 g/dL Normal [facility] Comment on above: Performed By: #### C MP #### [facility] [address] [place] [address] Sherwin Prerna Glucose mass conc 98 mg/dL Normal 74-106 [facility] Comment on above: Performed By: #### C MP #### [facility] [address] [address] Sherwin Prerna Potassium molar conc 3.6 mmol/L Normal 3.4-5.0 [facility] Comment on above: Performed By: #### C MP #### [facility] [address] [place] [address] Sherwin Prerna Protein mass conc 7.4 g/dL Normal 6.1-8.2 [facility] Comment on above: Performed By: #### C MP #### [facility] [address] [place] [address] Shrewin Prerna Sodium molar conc 140 mmol/L Normal 137-145 [facility] Comment on above: Performed By: #### C MP #### [facility] [address] [place] [address] Sherwin Prerna Urea nitrogen mass conc 10.0 mg/dL Normal 6.4-19.3 [facility] Comment on above: Performed By: #### C MP #### [facility] [address] [place] [address] Sherwin Prerna Urea nitrogen/Creatinine mass ratio 11.4 mg/mg Normal [facility] Comment on above: Performed By: #### C MP #### [facility] [address] [place], [place] [id number] Sherwin Prerna URINE MICROSCOPIC ONLYon Bacteria LM.HPF #/area (Urine sed) TRACE Normal NONE SEEN [facility] Comment on above: Performed By: #### E GEORGIA KOHLER #### [facility] [address] [place] [address] Sherwin Prerna CAST NONE SEEN Normal NONE SEEN [facility] Comment on above: Performed By: #### Bud KOHLER UMNANCIERO #### [facility] [address] [id number] Sherwin Prerna Crystals LM Nom (Urine sed) SEEN Normal NONE SEEN [facility] Comment on above: Performed By: #### Bud KOHLER UMNANCIERO #### [facility] [address] [place] [address] Sherwin Prerna CULTURE NOT INDICATED Normal [facility] Comment on above: Performed By: #### Bud KOHLER UMICRO #### [facility] [address] [place] [address] Sherwin Prerna Epithelial cells LM.HPF #/area (Urine sed) FEW Normal [facility] Comment on above: Performed By: #### Bud KOHLER UMICRO #### [facility] [address] [place] [address] Sherwin Prerna MUCOUS SMALL Normal NONE SEEN [facility] Comment on above: Performed By: #### BEVERLY NOLASCORO #### [facility] [address] [place] [address] Sherwin Prerna RBC #/vol (U) NONE SEEN Normal 0-2 [facility] Comment on above: Performed By: #### Bud KOHLER UMNANCIERO #### [facility] [address] [place] [address] Sherwin Prerna WBC #/vol (Bld) NONE SEEN Normal NONE SEEN [facility] Comment on above: Performed By: #### BEVERLY NOLASCORO #### [facility] [address] [place] [address] PULMONARY ARTERIESon 11-2 CT PULMONARY ARTERIES EXAMINATION:CT PULMONARY ARTERIESHISTORY:ORD ERING SYSTEM PROVIDED HISTORY: sob, TECHNOLOGIST PROVIDED HISTORY: Reason for exam: sobIllness/OtherEnc ounter Type: InitialAdditional signs and symptoms: sobORDERING SYSTEM PROVIDED DIAGNOSIS CODES:COMPARISON:No ne.TECHNIQUE:CT angiography of the pulmonary arteries following the administration of intravenous contrast. Coronal and sagittal MIP images were performed.Dose reduction techniques were achieved by using automated exposure control and/or adjustment of mA and/or kV according to patient size and/or use of iterative reconstruction technique.CONTRAST: IOPAMIDOL 76 % INTRAVENOUS SOLUTION - 75 mL,FINDINGS:The lungs are clear, other than a subcentimeter 2.6 mm nodule in the left lower lobe. The heart size is normal. No aneurysm or dissection.Allowing for suboptimal contrast opacification of the pulmonary arteries, no large pulmonary emboli in the central or main pulmonary arteries appreciated. The other pulmonary artery branches cannot be assessed. The central airways are patent. No thoracic lymphadenopathy. The visualized upper abdomen appears unremarkable. Cyst in the left kidney partially seen.IMPRESSION:1. Allowing for suboptimal contrast opacification of the pulmonary arteries, no large pulmonary emboli in the central or main pulmonary arteries appreciated. The other pulmonary artery branches cannot be assessed.2. The lungs are clear other than a subcentimeter 2.6 mm nodule in the left lower lobe.PD/labWorkstat ion ID: [id number] d by: KULDEEP CHANG on WedMay 02, 2018 4:56:34 PM ESTTranscribed by: CJ PIMENTEL on WedMay 02, 2018 5:06:59 PM ESTFinalized by: KULDEEP CHANG on WedMay 02, 2018 10:15:51 PM EST [facility] Comment on above: Order Comment: Reaso n for exam?:sobInjury/Trauma or Illness?:Illness/OtherHow long have you had these symptoms (acute/chronic)?:AcuteType of Exam?:InitialAdditional signs and symptoms?:sob XR CHEST PA/APon 05-02-2018 XR CHEST PA/AP EXAMINATION:XR CHEST PA/APHISTORY:F, 17 y/o , sobCOMPARISON:08/12 reportTECHNIQUE:An AP view of the chest is performed.FINDINGS: Cardiac monitoring leads overlie the chest.The lungs are symmetrically inflated and clear. No pleural abnormality.Heart size is normal. Normal mediastinum and holly. Normal pulmonary arteries. Normal aorta. There is minimal dextrocurvature of the thoracic spine, which may be positional, or true. Normal ribs and shoulders. The visualized upper abdomen is unremarkable.IMPRES CACHORRO:No acute process in the chest.Workstation ID: [id number] by: HIMANSHU DE JESUS on WedMay 02, 2018 4:33:43 PM ESTTranscribed by: HIMANSHU DE JESUS on WedMay 02, 2018 4:33:43 PM ESTFinalized by: HIMANSHU DE JESUS on WedMay 02, 2018 4:33:43 PM EST [facility] Comment on above: Order Comment: Reaso n for exam?:c/o sob today, no hxInjury/Trauma or Illness?:Illness/OtherHow long have you had these symptoms (acute/chronic)?:AcuteHistory of cancer?:nSurgeries, chemotherapy, or radiation?:nType of Exam?:InitialAdditional signs and symptoms?:n Vital Signs Date Time Vital Sign Value Performing Clinician Facility 02-18-2023 15:30-0400 Body height 163.19 cm Paulette Palencia Other [employer] Other 02-18-2023 15:30-0400 Body mass index (BMI) [Ratio] 15.77 kg/m2 Paulette Palencia Other [employer] Other 02-18-2023 15:30-0400 Body temperature 99 [degF] Paulette Palencia Other [employer] Other 02-18-2023 15:30-0400 Body weight 42 kg Paulette Palencia Other [employer] Other 02-18-2023 15:30-0400 Diastolic blood pressure 88 mm[Hg] Paulette Palencia Other [employer] Other 02-18-2023 15:30-0400 Respiratory rate 18 /min Paulette Palencia Other [employer] Other 02-18-2023 15:30-0400 SaO2% (BldA) [Mass fraction] 98 % Paulette Palencia Other [employer] Other 02-18-2023 15:30-0400 Systolic blood pressure 124 mm[Hg] Paulette Palencia Other [facility] [employer] Other 12-29-2020 23:45-0400 Diastolic blood pressure 83 mm[Hg] Ac Arvizu MD Work Phone: [facility] 12-29-2020 23:45-0400 Heart rate 91 /min Ac Arvizu MD Work Phone: [facility] 12-29-2020 23:45-0400 Respiratory rate 16 /min Ac Arvizu MD Work Phone: [facility] 12-29-2020 23:45-0400 SaO2% (BldA) [Mass fraction] 100 % Ac Arvizu MD Work Phone: [facility] 12-29-2020 23:45-0400 Systolic blood pressure 135 mm[Hg] Ac Arvizu MD Work Phone: [facility] 12-29-2020 17:13-0400 Body height 160 cm Ac Arvizu MD Work Phone: [facility] 12-29-2020 17:12-0400 Body temperature 98.01 [degF] Ac Arvizu MD Work Phone: [facility] 04-13-2020 04:43-0500 BP Diastolic 62 mm[Hg] [facility] 04-13-2020 04:43-0500 BP Systolic 119 mm[Hg] [facility] 04-13-2020 04:43-0500 Pulse (Heart Rate) 99 /min [facility] 04-13-2020 04:43-0500 Pulse Oximetry 100 % [facility] 04-12-2020 20:02-0500 BMI (Body Mass Index) 37.12 kg/m2 [facility] 04-12-2020 20:02-0500 Body Temperature 98.01 [degF] [facility] 04-12-2020 20:02-0500 Body weight 104.33 kg [facility] 04-12-2020 20:02-0500 Height 167.6 cm [facility] 04-12-2020 20:02-0500 Respiratory Rate 18 /min [facility] Encounters Encounter Date Encounter Type Care Provider Facility Start: 09-21-2023 End: 09-22-2023 ambulatory ASH BROCK Not Available Start: 02-18-2023 End: 02-18-2023 ambulatory Paulette Palencia Other [facility] [employer] Other Start: 02-18-2023 Office outpatient ne w 30 minutes Paulette Palencia [facility] Start: 12-29-2020 End: 12-30-2020 Emergency department patient visit BRISEIDA Vuong GUZMAN Facility:[facility] Start: 12-29-2020 End: 12-30-2020 Emergency department patient visit Ac Arvizu MD Work Phone: [facility] Start: 04-12-2020 End: 04-13-2020 Emergency department patient visit VANCE ESPINAL [facility] Start: 04-12-2020 End: 04-13-2020 Emergency department patient visit [facility] Work Phone: [facility] Comment on above: Abdominal pain, unsp ecified abdominal location (Primary Dx); Acute bilateral low back pain without sciatica Start: 05-22-2018 End: 05-22-2018 Patient encounter procedure MITCHDIANA HANSEN Facility: Start: 05-02-2018 End: 05-02-2018 Emergency department patient visit [facility] Procedures Date Procedure Procedure Detail Performing Clinician Start: 12-29-2020 EXTRA MICRO Bill Rogers MD Work Phone: Start: 12-29-2020 Urinalysis with reflex to microscopy and culture Bill Rogers MD Work Phone: Start: 12-29-2020 Urnls dip stick/tablet rgnt auto w/o microscopy Bill Rogers MD Work Phone: Start: 12-29-2020 Iadna rocio species direct probe tq Fahad Kessler MD Work Phone: Start: 12-29-2020 Assay of lipase Bill Rogers MD Work Phone: Start: 12-29-2020 CBC AND ELECTRONIC DIFF Bill Rogers MD Work Phone: Start: 12-29-2020 Complete blood count with white cell differential, automated Bill Rogers MD Work Phone: Start: 12-29-2020 Hepatic function panel Bill Rogers MD Work Phone: Start: 12-29-2020 MINT GREEN TOP TUBE Bill Rogers MD Work Phone: Start: 04-13-2020 Urinalysis Mitch Amslucio Mccarthy Work Phone: Start: 04-12-2020 Basic metabolic 1998 panel - Serum or Plasma Vance Das Work Phone: Start: 04-12-2020 Choriogonadotropin ( test) [Presence] in Urine Vance Das Work Phone: Start: 04-12-2020 Complete blood count with white cell differential, automated Vance Das Work Phone: Start: 04-12-2020 Complete blood count with white cell differential, manual Vance aDs Work Phone: Start: 04-12-2020 LIN TOP Vance Das Work Phone: Start: 04-12-2020 LIGHT BLUE TOP Vance Das Work Phone: Start: 04-12-2020 LIGHT GREEN TOP Vance Das Work Phone: Start: 04-12-2020 PINK TOP Vance Das Work Phone: Start: 04-12-2020 RAINBOW DRAW Vance Das Work Phone: Start: 04-12-2020 Urinalysis Vance Das Work Phone: Plan of Treatment Date Care Activity Detail Author Start: 02-05-2021 Influenza vaccination INFLUENZA VACCINE (#1) [facility] Start: 02-06-2020 Influenza vaccination given Sequential Influenza Vaccine (#1) [facility] Start: 10-17-2019 Screening for malignant neoplasm of cervix CERVICAL CANCER SCREENING DISCUSSION [facility] Start: 2017 Third diphtheria, tetanus and acellular pertussis (DTaP) vaccination TDAP (ADULT) [facility] Start: 2016 Hepatitis C antibody, confirmatory test [facility] Start: [address] [facility] Start: 2014 Screening for Chlamydia trachomatis CHLAMYDIA SCREEN [facility] Start: [address] [facility] Start: 2010 COVID-19 VACCINE (1) COVID-19 VACCINE (1) [facility] Start: 2009 Vaccination for human papillomavirus [facility] Start: 2001 History and physical examination, annual for health maintenance Wellness Visit [facility] Start: 1998 GONORRHEA SCREEN GONORRHEA SCREEN [facility] Start: 1998 Hepatitis C antibody, confirmatory test HEPATITIS C VIRUS SCREENING [facility] Start: 1998 Screening for Chlamydia trachomatis Chlamydia Screening [facility] Start: 1998 Tetanus vaccination Tetanus: Every 10yrs [facility] CHLAMYDIA & GONORRHE A AMPLIFIED PROBE CHLAMYDIA & GONORRHEA AMPLIFIED PROBE Microbiology Routine 12/29/2020 9:[address] [facility] Work Phone: GOLD TOP TUBE GOLD TOP TUBE La b STAT 12/29/2020 5:[address] [facility] LAVENDER TOP TUBE LAVENDER TOP T UBE Lab STAT 12/29/2020 5:[address] [facility] LT BLUE TOP TUBE LT BLUE TOP TUB E Lab STAT 12/29/2020 5:[address] [facility] RAINBOW DRAW RAINBOW DRAW Lab STAT 12/29/2020 5:[address] [facility] Work Phone: Payers Date Payer Category Payer Unknown [id number] 1998 Unknown [id number] [id number] 1998 Unknown [id number] 1998 Unknown [id number] 1998 Unknown [id number] 1998 Unknown [id number] 1959 Unknown [id number] Social History Date Type Detail Facility Start: 04-12-2020 End: 12-29-2020 Tobacco smoking status COIS Never smoker [facility] Start: 04-12-2020 End: 12-29-2020 Tobacco use and exposure Never used [facility] Start: 04-12-2020 Alcohol intake Lifetime non-d bisi (finding) [facility] Start: 04-12-2020 History SDOH Alcohol Frequency 1 [facility] Start: 1998 Sex Assigned At Not on file [facility] Exposure to SARS-CoV -2 (event) Not sure [facility] Start: 12-29-2020 Alcohol intake Current drinke r of alcohol (finding) [facility] Start: 12-29-2020 Alcohol Comment social [facility] Sex Assigned At Sex Assigned At [facility] [employer] Other Evaluation note 02-18-2023 Note Date & Type Note Facility 02-18-2023 Evaluation note Encounter Date Diagnosis Assessment Notes Feb, Viral URI with cough (ICD-10 - J06.9) No testing performed today in office. Discussed diagnosis with patient and mother today. Lung sounds were clear in all hawk, no signs of bacterial sinusitis. We will off on antibiotic therapies at this time. We will send in Rx of Medrol Dosepak to use as directed. Patient to.take medications as prescribed, reviewed side effects of steroid, take with food and plenty of water. Supportive care as directed, push fluids and rest, may use Tylenol/Motrin as needed for fever/discomfort, cool mist humidifier. May use [place] as needed for cough, do not take any other OTCs while using [place]. Patient to follow up with PCP in 2-3 days. Immediate eval if SOB, difficulty breathing, chest pain, dizziness, or other concerning symptoms. Patient verbalizes understanding and is agreeable to treatment plan [employer] Other Emergency department Note 12-29-2020 Deja Coffman RN - 12/29/2020 11:50 PM EDTCleydi Arvizu MD - 12/29/2020 7:46 PM EDGertrude Kessler MD - 12/29/2020 7:20 PM EDTDiana Parks RN - 12/29/2020 5:15 PM EDT Note Date & Type Note Facility 12-29-2020 Emergency department Note Post void residual 42ml dEPARTMENT of Emergency Medicine CHIEF COMPLAINT Abdominal Pain and Constipation HPI Sonia Cantor is a 20 y.o. female who presents with history of GERD complains of lower abdominal pain associated with constipation for 10 days and nausea. There is no fever or vomiting. There are no aggravating or relieving factors. REVIEW OF SYSTEMS Review of Systems Constitutional: Negative for chills and fever. HENT: Negative for congestion and sore throat. Respiratory: Negative for cough and shortness of breath. Cardiovascular: Negative for chest pain and leg swelling. Gastrointestinal: Positive for abdominal pain and nausea. Negative for vomiting. Genitourinary: Negative for difficulty urinating and frequency. Neurological: Negative for weakness and headaches. All other systems reviewed and are negative. PAST MEDICAL HISTORY Past Medical History: Diagnosis Date Gastritis SURGICAL HISTORY No past surgical history on file. CURRENT MEDICATIONS No current facility-administered medications for this encounter. No current outpatient medications on file. ALLERGIES No Known Allergies FAMILY HISTORY History reviewed. No pertinent family history. SOCIAL HISTORY Social History Socioeconomic History Marital status: Not on file Spouse name: Not on file Number of children: Not on file Years of education: Not on file Highest education level: Not on file Occupational History Not on file Tobacco Use Smoking status: Never Smoker Smokeless tobacco: Never Used Substance and Sexual Activity Alcohol use: Yes Comment: social Drug use: Not Currently Sexual activity: Not on file Other Topics Concern Not on file Social History Narrative Not on file Social Determinants of Health Financial Resource Strain: Difficulty of Paying Living Expenses: Food Insecurity: Worried About Running Out of Food in the Last Year: Ran Out of Food in the Last Year: Transportation Needs: Lack of Transportation (Medical): Lack of Transportation (Non-Medical): Physical Activity: Days of Exercise per Week: Minutes of Exercise per Session: Stress: Feeling of Stress : Social Connections: Frequency of Communication with Friends and Family: Frequency of Social Gatherings with Friends and Family: Attends Cheondoism Services: Active Member of Clubs or Organizations: Attends Club or Organization Meetings: Marital Status: Intimate Partner Violence: Fear of Current or Ex-Partner: Emotionally Abused: Physically Abused: Sexually Abused: PHYSICAL EXAM BP 149/86 Pulse 121 Temp 98 F (36.7 C) (Oral) Resp 16 Ht 1.6 m (5' 3 ) SpO2 100% Smoking Status Never Smoker Physical Exam Constitutional: Appearance: She is well-developed. HENT: Head: Normocephalic and atraumatic. Eyes: Pupils: Pupils are equal, round, and reactive to light. Cardiovascular: Rate and Rhythm: Normal rate and regular rhythm. Pulmonary: Effort: Pulmonary effort is normal. No respiratory distress. Breath sounds: Normal breath sounds. Abdominal: Palpations: Abdomen is soft. There is no mass. Tenderness: There is abdominal tenderness in the right lower quadrant and left lower quadrant. There is no guarding or rebound. Skin: General: Skin is warm and dry. Neurological: Mental Status: She is alert and oriented to person, place, and time. ED COURSE & MEDICAL DECISION MAKING STD vs PID vs constipation, doubt acute abdomen, plan lab On 12/29/2020 I saw and examined the patient. I discussed the history and examination with the resident and agree with the plan of care. Ac Arvizu MD 12/29/201947 dEPARTMENT of Emergency Medicine CHIEF COMPLAINT Abdominal Pain and Constipation HPI Snoia Cantor is a 20 y.o. female who presents w/ abdominal pain and constipation No BM in 10 days Tried senna and 3 fiber gummies today Had lower abdominal pain that is worse w/ food this AM, started before laxatives Nausea, one episode of emesis today, felt better afterwards No fevers No abdominal surgeries Has had constipation before but never for this long Denies urinary symptoms +white vaginal discharge x3 days REVIEW OF SYSTEMS Review of Systems Constitutional: Negative for chills and fever. HENT: Negative for congestion and rhinorrhea. Eyes: Negative for pain. Respiratory: Negative for cough and shortness of breath. Cardiovascular: Negative for chest pain. Gastrointestinal: Positive for abdominal pain, constipation, nausea and vomiting. Negative for diarrhea. Genitourinary: Positive for vaginal discharge. Negative for dysuria. Musculoskeletal: Negative for arthralgias. Skin: Negative for rash. Neurological: Negative for weakness, numbness and headaches. Psychiatric/Behavioral: Negative for confusion. PAST MEDICAL HISTORY Past Medical History: Diagnosis Date Gastritis SURGICAL HISTORY No past surgical history on file. CURRENT MEDICATIONS No current facility-administered medications for this encounter. No current outpatient medications on file. ALLERGIES No Known Allergies FAMILY HISTORY History reviewed. No pertinent family history. SOCIAL HISTORY Social History Socioeconomic History Marital status: Not on file Spouse name: Not on file Number of children: Not on file Years of education: Not on file Highest education level: Not on file Occupational History Not on file Tobacco Use Smoking status: Never Smoker Smokeless tobacco: Never Used Substance and Sexual Activity Alcohol use: Yes Comment: social Drug use: Not Currently Sexual activity: Not on file Other Topics Concern Not on file Social History Narrative Not on file Social Determinants of Health Financial Resource Strain: Difficulty of Paying Living Expenses: Food Insecurity: Worried About Running Out of Food in the Last Year: Ran Out of Food in the Last Year: Transportation Needs: Lack of Transportation (Medical): Lack of Transportation (Non-Medical): Physical Activity: Days of Exercise per Week: Minutes of Exercise per Session: Stress: Feeling of Stress : Social Connections: Frequency of Communication with Friends and Family: Frequency of Social Gatherings with Friends and Family: Attends Cheondoism Services: Active Member of Clubs or Organizations: Attends Club or Organization Meetings: Marital Status: Intimate Partner Violence: Fear of Current or Ex-Partner: Emotionally Abused: Physically Abused: Sexually Abused: PHYSICAL EXAM BP 149/86 Pulse 121 Temp 98 F (36.7 C) (Oral) Resp 16 Ht 1.6 m (5' 3 ) SpO2 100% Smoking Status Never Smoker Vitals: 12/29/20 2136 BP: 129/77 Pulse: 121 Resp: 16 Temp: Constitutional: Well-developed, well-nourished, in NAD. Head: Normocephalic, atraumatic. Mouth/throat: Oropharynx is clear, moist, and without exudates. Eyes: Conjunctiva WNL, sclera anicteric. Respiratory: Normal respiratory effort and no respiratory distress. No wheezes, rales, or rhonchi. Cardiovascular: RRR. No murmurs, gallops, or rubs. No LE edema. Gastrointestinal: Soft, no distension. Mild TTP bilateral LQ. No guarding, or rebound. No masses, hernia, or organomegaly appreciated. Genitourinary: Chaperoned by SURVEILLANCE OFFICER, no bleeding, cervix closed, thin white vaginal discharge, no CMT or adnexal tenderness Skin: Warm, dry. MSK: No deformity. Neurologic: Alert and oriented. Moving all extremities. No focal neuro deficits. Psych: Normal affect, behavior, and thought content. Nursing note and vitals reviewed. ED COURSE & MEDICAL DECISION MAKING Assessment: 20 y.o. female who presents w/ abdominal pain and constipation DDx includes but not limited to: UTI, appendicitis, hernia, ovarian torsion, ovarian cyst, PID, TOA, constipation, gastroenteritis, diverticulitis, ectopic Plan: Orders Placed This Encounter CHLAMYDIA & GONORRHEA AMPLIFIED PROBE - CERVIX VAGINITIS DNA PROBES RAINBOW DRAW CBC, EDIF, PLATELET CHEM 6 (LYTES, BUN CREA) GLUCOSE HEPATIC FUNCTION PANEL LIPASE BETA HCG, QUANT, BLOOD GOLD TOP TUBE MINT GREEN TOP TUBE LAVENDER TOP TUBE LT BLUE TOP TUBE CBC AND ELECTRONIC DIFF magnesium citrate (MAGCITRATE) oral solution 296 mL ondansetron (ZOFRAN-ODT) disintegrating tablet 8 mg URINE DIPSTICK; REFLEX MICROSCOPY; REFLEX CULTURE URINE DIPSTICK; REFLEX MICROSCOPY; REFLEX CULTURE PERFORMABLE EXTRA MICRO Impression/ED Course: Abdominal exam benign. Do not think requires CT. No abdominal surgeries. No risk factors for obstruction. Minimal N/V, if was obstruction would expect symptoms to be much worse. Pelvic exam not concerning for PID. Vaginitis probes are negative. CBC and chemistry and LFTs and lipase are unremarkable. Will try mag citrate for BM. Zofran given for mild nausea to encourage PO intake of fluids for tachycardia and UA. Patient signed out to oncoming team pending UA and re-evaluation. Does not need to have BM here in ED prior to discharge if no other concerns. The patient was updated regarding findings, and was re-assessed during ED stay. Disposition: pending I discussed the patient with the attending physician, Dr. Arvizu. This note dictated using medical dictation software. Attempts at proofreading were made, but errors may occasionally still occur. Fahad Kessler MD Resident 12/29/20 [id number] Pt states she hasn't had a bowel movement x 1 week. Associated lower bilateral abd pain. States vomited once earlier today. Associated acid reflux. Attempted ex-lax OTC and fiber gummies at home without relief. documented in this encounter [facility] Evaluation note Note Date & Type Note Facility Evaluation note Diagnosis Constipation, unspecified constipation type- Primary documented in this encounter [facility] Hospital Discharge instructions InstructionsAttachments Note Date & Type Note Facility Hospital Discharge instructions Fransico Albert MD - 12/30/2020 You were seen today for abdominal pain and constipation. You had blood tests that showed no signs of major illness. You were given some laxative which helped you have a bowel movement. You should continue to take Miralax 1 capful daily to help keep your bowels moving. If you have worsening symptoms, or new concerning symptoms, call your primary care doctor, or you can come back to the emergency department. [facility] PHYSICIAN REFERRAL Please call the [facility] physician referral service at or toll-free at to request a Primary Care Provider. You can also refer to the [facility] provider list that you were given. CLINICAL EPIC ANALYST If you need any further assistance with scheduling follow up care, please call the Clinical Clinical Document Improvement Educator at . 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 Please follow-up with your primary care physician to have your blood pressure rechecked and to decide if you will benefit from life style changes,starting on medications, or modify your current blood pressure regimen. Please review regarding your visit: Please note that your blood pressure during this ER visit was above 120/80 mmHg. The [place] [employer] Association (AHA) defines a normal blood pressure as below 120/80 mm Hg. This does not necessarily mean that you carry a diagnosis of a persistent elevation in your blood pressure called hypertension , but does need close follow up. Please note that the Joint National Committee (JNC) guidelines recommend that this reading be repeated by your primary doctor or by home readings. Often times blood pressure can be elevated in the ERrelated to pain, etc. Your ER physician is trained in determining whether this blood pressure is causing symptoms during your visit today. At this time, your emergency physician has determined that you are safe for discharge. Please note that it may be inappropriate to treat this blood pressure in the ER if it is not causing symptoms. We strongly recommend follow up with your primary care doctor. A primary doctor will be referred toyou if you do not have one. If your blood pressure is persistently elevated, your doctor will then review options that can be made to manage this condition. If you already have a diagnosis of hypertension, please follow up with your primary care doctor for further management. The [facility] does have a website that you can review at your convenience for more information: [email or web address] * Attachments The following attachments cannot be sent through Care Everywhere. * Appendicitis (Cameroonian) documented in this encounter Assessments Diagnosis Abdominal pain, unspecified abdominal location- Primary Acute bilateral low back pain without sciatica Additional Source Comments INFORMATION SOURCE (unrecogn ized section and content) DATE CREATED AUTHOR 05/16/2018 [facility] DATE CREATED AUTHOR AUTHOR'S ORGANIZ ATION 08/10/2018 [facility] DATE CREATED AUTHOR AUTHOR'S ORGANIZ ATION 04/23/2020 [facility] DATE CREATED AUTHOR AUTHOR'S ORGANIZ ATION 01/15/2021 [facility] DATE CREATED AUTHOR AUTHOR'S ORGANIZ ATION 09/26/2023 [facility] EPIC Reason for Visit (unrecogniz ed section and content) Reason Comments Abdominal Pain Reason Comments Abdominal Pain Constipation Mitch Mccarthy PA-C - 04/13/2020 12:21 AM Aakash Hoffman RN - 04/13/2020 12:17 AM Laurence Garcia RN - 04/12/2020 7:26 PM EST ED Notes (unrecognized secti on and content) PCP - Physician No Chief Complaint Patient presents with Abdominal Pain HPI This is a 19-year-old female coming in with intermittent lower abdominal burning that radiates across her lower abdomen and then also low back pain that radiates across her low back. There is no pattern to it last for few minutes at a time and comes and goes all day today. Currently she has no pain. She took some Tylenol earlier she denies any nausea vomiting diarrhea constipation fever urinary symptoms and vaginal discharge or bleeding. She denies surgeries on her abdomen. She said that she has had a kidney infection before and this feels very similar. The patient has no other complaints this time. Review of Systems Constitutional: No recent unexplained weight loss Skin: No color changes Eyes: No discharge HENT: No drooling Respiratory: No stridor Genitourinary: No obstructive symptoms Endocrine: No polyphagia Neurologic: No new face asymmetry Psychiatric: No self injury Hematologic/Lymphatic: No new easy bruising Allergic/Immunologic: No urticaria Past Medical History History reviewed. No pertinent past medical history. Past Surgical History Past Surgical History: Procedure Laterality Date ADENOIDECTOMY Family History History reviewed. No pertinent family history. Social History Social History Socioeconomic History Marital status: Single Spouse name: Not on file Number of children: Not on file Years of education: Not on file Highest education level: Not on file Occupational History Not on file Social Needs Financial resource strain: Not on file Food insecurity Worry: Not on file Inability: Not on file Transportation needs Medical: Not on file Non-medical: Not on file Tobacco Use Smoking status: Never Smoker Smokeless tobacco: Never Used Substance and Sexual Activity Alcohol use: Never Frequency: Never Drug use: Never Sexual activity: Not on file Lifestyle Physical activity Days per week: Not on file Minutes per session: Not on file Stress: Not on file Relationships Social connections Talks on phone: Not on file Gets together: Not on file Attends congregation service: Not on file Active member of club or organization: Not on file Attends meetings of clubs or organizations: Not on file Relationship status: Not on file Other Topics Concern Not on file Social History Narrative Not on file Allergies No Known Allergies Medications Sonia Cantor [place] Medication Instructions Prior to Surgery HUSEYIN:[id number] Printed on:04/13/20 4851 Medication Information Take last dose on Take the morning of surgery Comment(s) ondansetron (ZOFRAN ODT) 4 MG disintegrating tablet Dissolve 1 (one) tablet (4 mg total) on top of tongue every 8 (eight) hours as needed for nausea . Physical Exam Initial Vital Signs BP 124/66 (BP Location: Right arm, Patient Position: Sitting) Pulse (!) 103 Temp 98 F (36.7 C) (Oral) Resp 18 Ht 5' 6 Wt 104.3 kg (230 lb) LMP 03/24/2020 SpO2 100% BMI 37.12 kg/m Vital Signs During ED Visit (as charted by nursing) Patient Vitals for the past 24 hrs: BP Temp Temp src Pulse Resp SpO2 Height Weight 04/13/20 0308 124/66 (!) 103 100 % 04/13/20 0212 123/70 (!) 111 100 % 04/12/202001 (!) 155/94 98 F (36.7 C) Oral (!) 113 18 97 % 5' 6 104.3 kg (230 lb) 04/12/20 194 (!) 125 04/12/20 1930 137/86 98.3 F (36.8 C) Oral (!) 138 16 99 % 5' 3 47.2 kg (104 lb 1.6 oz) Physical Exam Vitals signs and nursing note reviewed. Constitutional: General: She is not in acute distress. Appearance: She is well-developed. HENT: Head: Normocephalic and atraumatic. Right Ear: External ear normal. Left Ear: External ear normal. Nose: Nose normal. Eyes: General: No scleral icterus. Conjunctiva/sclera: Conjunctivae normal. Neck: Musculoskeletal: Neck supple. Thyroid: No thyromegaly. Trachea: No tracheal deviation. Cardiovascular: Rate and Rhythm: Normal rate and regular rhythm. Heart sounds: Normal heart sounds. No murmur. No friction rub. No gallop. Pulmonary: Effort: Pulmonary effort is normal. No respiratory distress. Breath sounds: Normal breath sounds. No stridor. No wheezing or rales. Abdominal: General: Bowel sounds are normal. There is no distension. Palpations: Abdomen is soft. There is no mass. Tenderness: There is no abdominal tenderness. There is no right CVA tenderness, left CVA tenderness, guarding or rebound. Musculoskeletal: Normal range of motion. General: No tenderness. Lymphadenopathy: Cervical: No cervical adenopathy. Skin: General: Skin is warm and dry. Coloration: Skin is not pale. Findings: No erythema or rash. Neurological: Mental Status: She is alert and oriented to person, place, and time. Comments: Cranial nerves II-XII grossly intact. Sensory grossly intact. No tremors. Psychiatric: Behavior: Behavior normal. Thought Content: Thought content normal. Judgment: Judgment normal. Labs Reviewed CHEM 7 - Abnormal; Notable for the following components: Result Value Glucose 108 (*) All other components within normal limits Narrative: The eGFR should be used for monitoring renal function only and not for medication dosing. URINALYSIS - Abnormal; Notable for the following components: Clarity, Urine Hazy (*) Specific [place] 1.032 (*) Leukocyte Esterase, Urine Trace (*) Bacteria, Urine Rare (*) Squamous Epithelial 14 (*) Mucus, Urine Many (*) All other components within normal limits Narrative: Microscopic examination is performed on all urinalysis samples and only positive findings are reported. The test for blood on the chemical analytic portion of urinalysis may also be positive due to hemoglobinuria and myoglobinuria and if red blood cells are present they are quantified by microscopic examination. URINALYSIS - Abnormal; Notable for the following components: Clarity, Urine Hazy (*) Specific [place] 1.038 (*) Ketones, Urine 20 (*) Bacteria, Urine Few (*) Squamous Epithelial 5 (*) Calcium Oxalate Crystals Rare (*) Mucus, Urine Few (*) All other components within normal limits Narrative: Microscopic examination is performed on all urinalysis samples and only positive findings are reported. The test for blood on the chemical analytic portion of urinalysis may also be positive due to hemoglobinuria and myoglobinuria and if red blood cells are present they are quantified by microscopic examination. CBC WITH AUTO DIFFERENTIAL - Abnormal; Notable for the following components: WBC 12.11 (*) Neutrophils Abs 9.14 (*) All other components within normal limits HCG URINE, QUALITATIVE - Normal CBC AND DIFFERENTIAL Narrative: The following orders were created for panel order CBC w/ Diff. Procedure Abnormality Status --------- ------ CBC Auto Differential[[id number]] Abnormal Final result Please view results for these tests on the individual orders. Radiographic Imaging (if any) During ED Visit No orders to display Medications Ordered/Given During ED Visit Medications sodium chloride 0.9% (NS) bolus 1,000 mL (1,000 mL Intravenous New Bag 04/13/20 0306) sodium chloride 0.9% (NS) bolus 1,000 mL (0 mL Intravenous Stopped 04/13/20 0128) IMPRESSION/ ED COURSE Procedures This patient was also seen and examined by Dr. Das. Patient presented with abdominal pain she had across her lower abdomen and also in her low back prior to my evaluation. By the time I evaluated her she had no pain she had no abdominal tenderness. When Dr. Das evaluated her she again had no pain and no abdominal tenderness. Because of this we did not order any imaging. She does have a mild leukocytosis of 12.11 with absolute neutrophils 9.14. Urinalysis shows few bacteria with 5 squamous epithelials. Initially patient was given a liter bolus normal IV saline for her tachycardia. When I looked back in her chart her previous visit last April she had a heart rate of 126. After a liter of fluids here her heart rate was starting to come down so I gave her 1 more liter of normal IV saline and when checked on her and when I was evaluating her a second time her heart rate was down to 97. She still has no abdominal pain and was nontender on my exam. I gave her strict return precautions for potential early appendicitis. Otherwise she was to follow-up with her family doctor. She was discharged home in stable condition with computer instructions. The patient was evaluated during the global COVID-19 pandemic. The patient was wearing a surgical mask in the room. I also was wearing a surgical mask while in the patient's room. The patient has been informed that they may have pre-hypertension or hypertension based on a blood pressure reading in the Emergency Department. I recommend that the patient call the primary care provider listed on their discharge instructions or a physician of their choice as soon as possible to arrange follow-up in the next 4 weeks for further evaluation of possible pre-hypertension or hypertension. . FINAL DIAGNOSIS 1. Abdominal pain, unspecified abdominal location 2. Acute bilateral low back pain without sciatica Mitch Mccarthy PA-C 04/13/20 0353 Pt from triage ,states feel like has kidney infection, cramping burning pain in abd, last several minutes then goes away, no problem urinating. Tylenol was taken, has hx of kidney infection. No pain right now Pt arrives with c/o kidney infection, thinks it started earlier this month, but this week was bad. States abd cramping and pain. documented in this encounter Scheduled Active and Recently Administ ered Medications (unrecognized section and content) Medication Order 12/28/2020 12/29/2020 12/30/2020 magnesium citrate (MAGCITRATE) oral solution 296 mL (COMPLETED) 296 mL (1 Bottle), Oral, ONCE, 1 dose, On 12/29/20 at [id number] (Given - Provider: Deja Coffman, RN) ondansetron (ZOFRAN-ODT) disintegrating tablet 8 mg 8 mg, Oral, ONCE, 1 dose, On 12/29/20 at [id number] (Hold - Provider: Sary Coffman RN - Reason: Order Parameters not met) FOR RECORDS PERTAINING TO PATIENTS WHO ARE OR HAVE BEEN ENROLLED IN A CHEMICAL DEPENDENCY/SUBSTANCEABUSE PROGRAM, SOME INFORMATION MAY BE OMITTED. This clinical summary was aggregated from multiple sources. Caution should be exercised in using it in the provision of clinical care. This summary normalizes information from multiple sources, and as a consequence, information in this document may materially change the coding, format and clinical context of patient data. In addition, data may be omitted in some cases. CLINICAL DECISIONS SHOULD BE BASED ON THE PRIMARY CLINICAL RECORDS. [facility] [employer] [facility]. provides no warranty or guarantee of the accuracy or completeness of information in this document.
--- OUTSIDE RECORDS SUMMARY | 2024-12-10 20:36 | XMS_ITS | Clinical Summary ---
Author Organization [facility] Address [address] [place] [address] Care Team Providers Care Azure Architect Name Role Phone No, Physician Primary Care Provider Unavailabl e Allergies No known active allergies Medications ondansetron (ZOFRAN ODT) 4 MG disintegrating tablet Dissolve 1 (one) tablet (4 mg total) on top of tongue every 8 (eight) hours as needed for nausea . 20 tablet 8 Active Social History Tobacco Use Types Packs/Day Years Used Date Smoking Tobacco: Never Smokeless Tobacco: Never Alcohol Use Standard Drinks/Week Comments Never 0 (1 standard drink = 0.6 oz pur e alcohol) AUDIT-C Answer Date Recorded Q1: How often do you have a drink containing alc ohol? Never 04/12/2020 Average Number of Drinks Not on file 020 Frequency of Binge Drinking Not on file 11/2019 Comments No Sex and Gender Information Value Date Recorded Sex Assigned at Not on file Legal Sex Female 2:27 PM EST Gender Identity Female 05/02/2018 3:16 PM EST Sexual Orientation Straight 05/02/2018 3: 16 PM EST Last Filed Vital Signs Vital Sign Reading Time Taken Comments Blood Pressure 119/62 04/13/2020 4:43 AM EST Pulse 99 04/13/2020 4:43 AM EST Temperature 36.7 C (98 F) 04/12/2020 8:02 PM EST Respiratory Rate 18 04/12/2020 8:02 PM EST Oxygen Saturation 100% 04/13/2020 4:43 AM EST Inhaled Oxygen Concentration - - Weight 104.3 kg (230 lb) 04/12/2020 8:02 PM EST Height 167.6 cm (5' 6 ) 04/12/2020 8:02 PM EST Body Mass Index 37.12 04/12/2020 8:02 PM EST Plan of Treatment Health Maintenance Due Date Last Done Comments Tetanus: Every 10yrs 1998 Wellness Visit 2001 Depression Screening/Follow- Up (PHQ-2/9) 2010 HIV Screening 2013 Hepatitis C Screening 2016 Pap Smear 10/17/2019 COVID-19 Vaccine ( - 2023-2 5 season) 2024 Influenza Vaccine (#1) 2025 Pneumococcal Vaccine: Ped or At-Risk Aged Out No longer eligible b ased on patient's age to complete this topic Insurance Care Teams Azure Architect Relationship Specialty Start Date End Date No, Physician [facility] PCP - General 05/02/18
--- NOTE | 2024-12-10 21:10 | ED_ITS ---
HPI - Abdominal Pain General Chief Complaint: Abdominal Pain Stated Complaint: abdominal pain Time Seen by Provider: 12/10/24 20:33 Source: patient Mode of arrival: walk-in Limitations: no limitations History of Present Illness HPI narrative: presents complaining of diarrhea and burning lower abdominal pain since last PM. No nausea or vomiting. No fever or chills. Not aware of anyone else who is ill Related Data Allergies Allergy/AdvReac Type Severity Reaction Status Date / Time No Known Drug Allergies Allergy Verified 12/10/24 20:36 Review of Systems ROS Status of ROS 10 or more systems reviewed and unremark able except as noted in history and below PFSH PFSH Social History Little interest or pleasure in doing things: not at all Feeling down, depressed, or hopeless: not at all Exam Constitutional Vital Signs, click to edit/add: Last Vital Signs Temp 97.9 F 12/10/24 20:32 Pulse 88 12/10/24 20:32 Resp 18 12/10/24 20:32 BP 140/88 12/10/24 20:32 Pulse Ox 99 12/10/24 20:32 O2 Del Method Room Air 12/10/24 20:32 Common normals: no apparent distress, average body habitus, oriented x3, no limitations, healthy appearing, alert and well nourished [facility] Common normals: normocephalic and head/scalp atraumatic Eye Common normals: EOMs intact bilaterally and conjunctivae normal Respiratory Common normals: normal respiratory effort, no retractions, no use of accessory muscles and clear to auscultation bilaterally Cardio Common normals: regular rate, regular rhythm, S1 normal heart sound and S2 normal heart sound GI Common normals: Normal to inspection, nondistended, normoactive bowel sounds present and soft to palpation Other: mild left sided tenderness Extremity Common normals: normal to inspection Neuro Common normals: oriented x3, CN's II-XII intact bilaterally, moves all extremities and no focal motor deficits Psych Appearance: grossly normal Course Vital Signs Vital signs: Vital Signs Temperature 97.9 F 12/10/24 20:32 Pulse Rate 88 12/10/24 20:32 Respiratory Rate 18 12/10/24 20:32 Blood Pressure 140/88 12/10/24 20:32 Pulse Oximetry 99 12/10/24 20:32 Oxygen Delivery Method Room Air 12/10/24 20:32 Temperature 97.9 F 12/10/24 20:32 Pulse Rate 88 12/10/24 20:32 Respiratory Rate 18 12/10/24 20:32 Blood Pressure 140/88 12/10/24 20:32 Pulse Oximetry 99 12/10/24 20:32 Oxygen Delivery Method Room Air 12/10/24 20:32 MDM - Abdominal Pain MDM Narrative Medical decision making narrative: patient presents with diarrhea and abdominal pain. labs and diagnostic studies ordered. CT results slow to return and patient is requesting to leave AMA despite not knowing her diagnosis or possible harm. Lab Data Labs: Lab Results 12/10/24 12/10/24 Range/Units 21:00 21:20 WBC 8.9 (4.0-11.0) 10^3/uL RBC 4.69 (4.20-5.40) 10^6/uL Hgb 14.3 (12.0-16.0) g/dL Hct 42.1 (36.0-48.0) % MCV 89.8 (81.0-99.0) fL MCH 30.5 (26.7-34.0) pg MCHC 34.0 (29.9-35.2) g/dL RDW 12.1 (11.0-15.0) % Plt Count 268 (150-450) 10^3/uL MPV 9.6 (9.5-13.5) fL Neut % (Auto) 71.8 (43.0-75.0) % Lymph % (Auto) 20.4 L (20.5-60.0) % Bee % (Auto) 7.0 (1.7-12.0) % Eos % (Auto) 0.3 L (0.9-7.0) % Baso % (Auto) 0.3 (0.2-2.0) % Neut # (Auto) 6.4 (1.4-6.5) 10^3/uL Lymph # (Auto) 1.8 (1.2-3.8) 10^3/uL Bee # (Auto) 0.6 (0.3-0.8) 10^3/uL Eos # (Auto) 0.0 (0.0-0.7) 10^3/uL Baso # (Auto) 0.0 (0.0-0.1) 10^3/uL Abs Immat Gran (auto) 0.02 (0.00-0.03) 10^3/uL Imm/Tot Granulo (auto) 0.2 (0.0-0.5) % Sodium 139 (136-145) mmol/L Potassium 4.0 (3.5-5.1) mmol/L Chloride 102 (98-107) mmol/L Carbon Dioxide 30.0 (21.0-32.0) mmol/L Anion Gap 11.0 BUN 11.0 (7.0-18.0) mg/dL Creatinine 0.58 (0.55-1.02) mg/dL Est GFR ( Amer) >60 (>=60 mL/min/1.73m^2) Est GFR (Non-Af Amer) >60 (>=60 mL/min/1.73m^2) BUN/Creatinine Ratio 19.0 Glucose 116 H (74-106) mg/dL Lactate 0.9 (0.4-2.0) mmol/L Calcium 10.2 H (8.5-10.1) mg/dL Total Bilirubin 0.5 (0.2-1.0) mg/dL AST 10 L (15-37) U/L ALT 16 (14-59) U/L Alkaline Phosphatase 51 (46-116) U/L Total Protein 7.3 (6.4-8.2) g/dL Albumin 3.9 (3.4-5.0) g/dL Globulin 3.4 g/dL Albumin/Globulin Ratio 1.1 Urine Color Lt. yellow (YELLOW) Urine Clarity Clear (CLEAR) Urine pH 6.0 (5.0-9.0) Ur Specific [place] 1.020 (1.005-1.025) Urine Protein Negative (NEG/TRACE) mg/dL Urine Glucose (UA) Negative (NEGATIVE) mg/dL Urine Ketones Negative (NEGATIVE) mg/dL Urine Occult Blood Negative (NEGATIVE) Urine Nitrite Negative (NEGATIVE) Urine Bilirubin Negative (NEGATIVE) Urine Urobilinogen 0.2 (0.2-1.0) EU/dL Ur Leukocyte Esterase Negative (NEGATIVE) Urine RBC None seen (0-2) #/HPF Urine WBC 0-2 A (NONE SEEN) #/HPF Ur Squamous Epith Cells Few A (NONE/RARE) #/LPF Urine Crystals None seen (None Seen) #/HPF Urine Bacteria None seen (NONE SEEN) #/HPF Urine Casts None seen (NONE SEEN) #/LPF Urine Mucus Trace A (NONE SEEN) Ur Culture Indicated? No Discharge Plan Discharge Stand Alone Forms: Portal Instructions Chief Complaint: Abdominal Pain Clinical Impression: Abdominal pain Patient Disposition: Left Against Medical Advice Print Language: Bengali Referrals: Physician,Non-Staff, MD [Primary Care Provider] - 1 week Discharge Date/Time: 12/11/24 02:24
[2024-12-10 21:26] LABS: Hematocrit 42.1 % (36.0-48.0); Hemoglobin 14.3 g/dL (12.0-16.0); Immature Granulocytes Abs Auto 0.02 10^3/uL (0.00-0.03); Immature Granulocytes Pct Auto 0.2 % (0.0-0.5); Lymphocytes Absolute Auto 1.8 10^3/uL (1.2-3.8); Mean Corpuscular HGB Conc 34.0 g/dL (29.9-35.2); Mean Corpuscular Hemoglobin 30.5 pg (26.7-34.0); Mean Corpuscular Volume 89.8 fL (81.0-99.0); Platelet Count 268 10^3/uL (150-450); Red Blood Count 4.69 10^6/uL (4.20-5.40); White Blood Count 8.9 10^3/uL (4.0-11.0)
[2024-12-10 21:27] LABS: Glucose Urine UA NEGATIVE (NEGATIVE)
[2024-12-10 21:34] LABS: Cast Seen? NONE SEEN #/LPF (NONE SEEN); Crystals Seen? None Seen #/HPF (None Seen); Urine Culture Indicated NO
[2024-12-10] MEDS: 0.9 % SODIUM CHLORIDE 1,000 ML 999 ML IV (21:36)
[2024-12-10 21:42] LABS: Alanine Aminotransferase 16 U/L (14-59); Albumin Globulin Ratio 1.1; Albumin Level 3.9 g/dL (3.4-5.0); Alkaline Phosphatase 51 U/L (46-116); Anion Gap 11.0; Aspartate Amino Transferase 10 U/L (15-37); Blood Urea Nitrogen 11.0 mg/dL (7.0-18.0); Calcium 10.2 mg/dL (8.5-10.1); Carbon Dioxide 30.0 mmol/L (21.0-32.0); Chloride 102 mmol/L (98-107); Estimated GFR (African America >60 (>=60 mL/min/1.73m^2); Estimated GFR (Non-African Ame >60 (>=60 mL/min/1.73m^2); Globulin 3.4 g/dL; Glucose 116 mg/dL (74-106); Potassium 4.0 mmol/L (3.5-5.1); Sodium 139 mmol/L (136-145); Total Protein 7.3 g/dL (6.4-8.2)
[2024-12-10 21:45] LABS: Lactate/Lactic Acid 0.9 mmol/L (0.4-2.0)
[2024-12-11] MEDS: KETOROLAC TROMETHAMINE 30 MG/ML VIAL IVP (00:16)
[2024-12-11] MEDS: 0.9 % SODIUM CHLORIDE 1,000 ML 999 ML IV (01:45)
[2024-12-11] MEDS: FAMOTIDINE/PF 20 MG/2 ML VIAL IV (02:04)
== END 2024-12-11 02:24 | disposition left against medical advice (07) ==
PROVIDERS: Emergency Provider Internal Medicine
DX: R10.30 Lower abdominal pain, unspecified (principal); Z53.29 Procedure and treatment not carried out because of patient's decision for other reasons; N83.202 Unspecified ovarian cyst, left side; R19.7 Diarrhea, unspecified
CPT/HCPCS: 36415; 74177; 80053; 81001; 83605; 85025; 96361; 96374; 96375; 99285; J1885; J3490; Q9967

== ENCOUNTER 2025-03-27 11:52 | Emergency (ER) | payer OTHER, SELFPAY ==
[2025-03-27 11:58] VITALS: BP 133/89; PULSE 79; TEMP 36.8; O2SAT 100; BMI 18.5
--- NOTE | 2025-03-27 12:25 | CT_ITS ---
The [address] [address] Patient Name: KYLE LANDRY MRN: [id number] date: 2000 Sex: F Assigned Patient Location: ER Current Patient Location: [facility] Accession/Order Number: [id number] Exam Date: 03/27/2025 12:54 Report Date: 03/27/2025 13:19 At the request of: BEKAH JEAN-BAPTISTE MD Procedure: CT head/brain wo con CT head/brain wo con 03/27/2025 1:02 PM SIGNS AND SYMPTOMS: ^trauma, injury to back of head with headache, neck pain, tingling TECHNIQUE:Multi-detector CT axial slices of the brain were obtained without IV contrast. CT was performed with one or more of the following dose reduction techniques: Automated exposure control, adjustment of the mA and/or kV according to patient size, or use of iterative reconstruction technique. COMPARISON: None. FINDINGS: There is no shift of the midline structures, acute intracranial bleeding, mass effects, or evidence of acute ischemia. The ventricular system is normal in size. The brainstem and the cerebellum are unremarkable. The visualized intraorbital contents, the visualized paranasal sinuses, and the infratemporal soft tissues show no acute abnormality. The osseous structures in the skull base and the calvarium show no abnormality. CT/CT head/brain wo con IMPRESSION: No acute intracranial pathology. Impression dictated by: Emre Do M.D. 03/27/2025 1:19 PM Dictation Location: [place] [address] Electronically authenticated by: [id number] Y Date: 03/27/2025 13:19
--- NOTE | 2025-03-27 12:25 | CT_ITS ---
The [address] [address] Patient Name: KYLE LANDRY MRN: [id number] date: 2000 Sex: F Assigned Patient Location: ER Current Patient Location: [facility] Accession/Order Number: [id number] Exam Date: 03/27/2025 12:54 Report Date: 03/27/2025 13:22 At the request of: BEKAH JEAN-BAPTISTE MD Procedure: CT cervical spine wo con CT cervical spine wo con 03/27/2025 1:02 PM SIGN AND SYMPTOMS: ^trauma, headache, neck pain, tingling TECHNIQUE: Multi detector CT axial slices of the cervical spine were obtained without IV contrast. Volumetric acquisition sagittal, coronal, and 3-D reconstructions were performed and reviewed. CT was performed with one or more of the following dose reduction techniques: Automated exposure control, adjustment of the mA and/or kV according to patient size, or use of iterative reconstruction technique. COMPARISON: None. FINDINGS: There is preservation of the vertebral body heights and intervertebral discs. No fractures or dislocations are seen. The alignment of the cervical spine is normal. The craniocervical junction and atlantoaxial joint are within normal limits. The prevertebral soft tissues are within normal limits. The paraspinous soft tissues are within normal limits. The lung apices are unremarkable. CT/CT cervical spine wo con IMPRESSION: No fracture, subluxation, or significant degenerative change. Impression dictated by: Emre Do M.D. 03/27/2025 1:22 PM [facility]ictation [facility] authenticated by: [id number] Y Date: 03/27/2025 13:22
[2025-03-27] MEDS: ORPHENADRINE 60 MG/2 ML VIAL IM (12:39)
[2025-03-27] MEDS: KETOROLAC TROMETHAMINE 30 MG/ML VIAL IM (12:40)
--- NOTE | 2025-03-27 12:42 | ED.HEATRA1 ---
HPI HPI - Head Injury General Chief complaint: Head Injury Stated complaint: head injury - [facility] Time Seen by Provider: 03/27/25 12:05 Source: patient Mode of arrival: walk-in Limitations: no limitations History of Present Illness HPI Narrative: The patient is a 24-year-old female with no significant known past medical history is coming to the ER with a head injury that she sustained yesterday at work, that she was bending to grab something from the shelf and apparently hit the back of her head with one of the shelves, at that time she did not pass out ,she did not lose consciousness or feel dizzy a few minutes after that and she mentioned that she had some nausea toward the end of the day that resolved by itself The patient today still complaining of a headache in the back of her head Patient also complaining of neck pain with no radiation down her arms Related Data Previous Rx's ?Medication ?Instructions ?Recorded diclofenac sodium 50 mg 50 mg PO Q12H PRN pain #20 tabs 03/27/25 tablet,delayed release orphenadrine citrate 100 mg 100 mg PO ONCE PRN muscle spasm 03/27/25 tablet,extended release #10 tabs Allergies Allergy/AdvReac Type Severity Reaction Status Date / Time No Known Drug Allergies Allergy Verified 03/27/25 11:58 Opioid HPI Opioid Management Most Recent Pain and Opioid Data: Last Pain Scale 4 Today, 13:24 Last ED Pain Assessment Today, 13:24 Last MAR Pain Assessment Today, 12:40 Review of Systems ROS Status of ROS 10 or more systems reviewed and unremarkable except as noted in history and below PFSH PFSH Social History Little interest or pleasure in doing things: not at all Feeling down, depressed, or hopeless: not at all Exam Narrative Exam Narrative: Nurses notes and vital signs reviewed and patient is not hypoxic. General: Well-appearing and in no apparent distress. Skin: Warm, dry, no pallor noted. No rash. Head: Normocephalic, at the occipital area the patient have a spot of tenderness but no obvious open wound or any ecchymosis. Neck: Supple, tenderness upon palpation of the upper paraspinal muscle as well as intervertebral line at the cervical level the upper C1 and C2 Eye: Pupils are equal, round and EOMI. No scleral icterus. Ears, Nose, Mouth, and Throat: TM are clear, no nasal mucosal hypertrophy. Oral mucosa is moist, no posterior oropharynx erythema, uvula is mid-line Cardiovascular: Regular Rate and Rhythm without murmur, gallop or rub. Respiratory: No accessory muscle use or respiratory distress. Lungs are clear to auscultation, no wheezing, rales or rhonchi GI: Abdomen is soft, non-distended. Normal bowel sounds. No masses appreciated. No tenderness to palpation. No rebound, guarding, or rigidity noted. Neurological: A&O x4. No cranial nerve dysfunction observed. No truncal ataxia. Moves all extremities. Sensation intact. Psychiatric: Cooperative and interactive. Normal mood and affect. Constitutional Vital Signs, click to edit/add: Last Vital Signs Temp 98.3 F 03/27/25 11:58 Pulse 68 03/27/25 13:24 Resp 15 03/27/25 13:24 BP 110/70 03/27/25 13:24 Pulse Ox 98 03/27/25 13:24 O2 Del Method Room Air 03/27/25 13:24 Course Vital Signs Vital signs: Vital Signs Temperature 98.3 F 03/27/25 11:58 Pulse Rate 79 03/27/25 11:58 Respiratory Rate 16 03/27/25 11:58 Blood Pressure 133/89 03/27/25 11:58 Pulse Oximetry 100 03/27/25 11:58 Oxygen Delivery Method Room Air 03/27/25 11:58 Temperature 98.3 F 03/27/25 11:58 Pulse Rate 68 03/27/25 13:24 Respiratory Rate 15 03/27/25 13:24 Blood Pressure 110/70 03/27/25 13:24 Pulse Oximetry 98 03/27/25 13:24 Oxygen Delivery Method Room Air 03/27/25 13:24 MDM - Head Injury MDM Narrative Medical decision making narrative: Was provided in the ER with Toradol as well as Norflex Also had a CT of the head showing no acute pathology as well as CT cervical spine Patient to rest for the rest of today Discharge home with Norflex & Voltaren The patient to follow-up with the primary care within 2 to 3 days and to come back to the ER in case of any worsening of the current symptoms or any new symptoms or concerns Discharge Plan Discharge Chief Complaint: Head Injury Clinical Impression: Neck sprain, Closed head injury Patient Disposition: Home, Self-Care Time of Disposition Decision: 13:32 Condition: Good Prescriptions / Home Meds: New diclofenac sodium 50 mg tablet,delayed release (DR/EC) 50 mg PO Q12H PRN (Reason: pain) Qty: 20 0RF orphenadrine citrate 100 mg tablet extended release 100 mg PO ONCE PRN (Reason: muscle spasm) Qty: 10 0RF Print Language: Yemeni Instructions: Head Injury (DC), Cervical Sprain (ED) Referrals: Physician,Non-Staff, MD [Primary Care Provider] - 1 week
--- OUTSIDE RECORDS SUMMARY | 2025-03-27 12:56 | XMS_ITS | Clinical Summary ---
Author Organization [facility] Address [address] [place] [address] Care Team Providers Care Operations Lead Name Role Phone Unavailable Primary Care Provider Unavailabl e Allergies No known active allergies Medications No known medications Family History Medical HistoryRelationNameCommentsHypertensionMotherRelationNameStatusComments FatherAliveMotherAlive Social History Tobacco UseTypesPacks/DayYears UsedDateSmoking Tobacco: NeverSmokeless Tobacco: Never Tobacco Cessation:Counseling Given: Not Answered Alcohol UseStandard Drinks/WeekCommentsYes0 (1 standard drink = 0.6 oz pure alcohol)CommentsNoSex and Gender InformationValueDate RecordedSex Assigned at BirthNot on fileLegal OlrYucpcr67/27/2024 3:51 PM EDTGender Identity Not on fileSexual OrientationNot on file Last Filed Vital Signs Vital SignReadingTime TakenCommentsBlood Upfiaxvy322/8204 4:13 PM EDT Pulse--Temperature--Respiratory Rate--Oxygen Saturation--Inhaled Oxygen Concentration--Yzkhyz91.1 kg (95 lb)09/21/2023 4:13 PM EDTHeight--Body Mass Index-- Plan of Treatment Not on file Insurance
--- OUTSIDE RECORDS SUMMARY | 2025-03-27 12:56 | XMS_ITS | Clinical Summary ---
Author Organization [facility] Address [address] [place] [address] Care Team Providers Care Tanker Service Attendant Name Role Phone No, Physician Primary Care Provider Unavailabl e Allergies No known active allergies Medications MedicationSigDispense QuantityRefillsLast FilledStart DateEnd DateStatus ondansetron (ZOFRAN ODT) 4 MG disintegrating tablet Dissolve 1 (one) tablet (4 mg total) on top of tongue every 8 (eight) hours as needed for nausea . 20 tablet 05/02/2018Active Social History Tobacco UseTypesPacks/DayYears UsedDateSmoking Tobacco: NeverSmokeless Tobacco: NeverAlcohol UseStandard Drinks/WeekCommentsNever0 (1 standard drink = 0.6 oz pure alcohol)AUDIT-CAnswerDate RecordedQ1: How often do you have a drink containing alcohol?Never04/12/2020Average Number of DrinksNot on file04/12/2020 Frequency of Binge DrinkingNot on file04/12/2020CommentsNoSex and Gender InformationValueDate RecordedSex Assigned at BirthNot on fileLegal SexFemale 05/02/2018 2:27 PM ESTGender XnqlmelrHvtxsj64/26/2018 3:16 PM ESTSexual DlawygokjvxClzmlarb08/26/2018 3:16 PM EST Last Filed Vital Signs Vital SignReadingTime TakenCommentsBlood Dvciwpjo983/6204/13/2020 4:43 AM EST Dtmuy313204/13/2020 4:43 AM VKOWsihseajaul79.7 ??C (98 ??F)04/12/2020 8:02 PM EST Respiratory Ttbp695706/12/2019 8:02 PM ESTOxygen Dkgxhogeqa526%04/13/2020 4:43 AM ESTInhaled Oxygen Concentration--Pgjewf577.3 kg (230 lb)04/12/2020 8:02 PM EST Dcywnd582.6 cm (5' 6 )04/12/2020 8:02 PM ESTBody Mass Index37.12106/12/2019 8:02 PM EST Plan of Treatment Health MaintenanceDue DateLast DoneCommentsTetanus: Every 10yrs (RETIRED) 1998Wellness Visit2001Depression Screening/Follow-Up (PHQ-2/9) 2010HIV Fuksncbtn53/12/2014Hepatitis C Jkijnzafv50/12/2017Pap Smear 10/17/2019COVID-19 Vaccine ( season)2025Influenza Vaccine (#1) 2025Pneumococcal VaccineAged OutNo longer eligible based on patient's age to complete this topic Insurance Care Teams Team MemberRelationshipSpecialtyStart DateEnd Date No, Physician [facility] PCP - Fktshtv86/26/18
--- OUTSIDE RECORDS SUMMARY | 2025-03-27 12:56 | XMS_ITS | Clinical Summary ---
Author Organization [facility] Address [address] [place] [address] [place] [address] Care Team Providers Care Workplace Trainer And Assessor Name Role Phone Unavailable Primary Care Provider Unavailabl e Allergies No known active allergies Medications MedicationSigDispense QuantityRefillsLast FilledStart DateEnd DateStatus polyethylene glycol (MiraLax) 17 GM/SCOOP Powder powder 1 capful (17g) in 4-8 ounces of beverage PO QHS 527 g 1Active Social History Tobacco UseTypesPacks/DayYears UsedDateSmoking Tobacco: NeverSmokeless Tobacco: NeverAlcohol UseStandard Drinks/WeekCommentsYes0 (1 standard drink = 0.6 oz pure alcohol)socialCommentsNoSex and Gender InformationValueDate RecordedSex Assigned at BirthNot on fileLegal HiiYhptmz36/05/2020 10:38 PM EDTGender IdentityNot on fileSexual OrientationNot on file Last Filed Vital Signs Vital SignReadingTime TakenCommentsBlood Xkpexsyq913/8307 11:45 PM EDT Eclqj492812/29/2020 11:45 PM CRFKwcdgxbvmxk22.7 ??C (98 ??F)12/29/2020 5:12 PM EDT Respiratory Saft4969 11:45 PM EDTOxygen Wemzdfjoni111%12/29/2020 11:45 PM EDTInhaled Oxygen Concentration--Weight--Wssnds414 cm (5' 3 )12/29/2020 5:13 PM EDTBody Mass Index-- Plan of Treatment Health MaintenanceDue DateLast DoneCommentsHEPATITIS C VIRUS HKPRJCKAA36/12/1999 JBLZJVY22 1998HIV SCREENING FUIWGNAGKF82/12/2014HPV VACCINE ADOL (1 - 3-dose series)2013HPV VACCINE (1 - 3-dose series)2013HEP B VACCINE (1 of 3 - 19+ 3-dose series)2017TDAP (ADULT)2017CERVICAL CANCER SCREENING RETRJYDYUY05/12/2020CHLAMYDIA DVPIBR24/GONORRHEA SCREEN /OVID-19 VACCINE ( - 2024- season)2025INFLUENZA VACCINE (#1)2025PNEUMOCOCCAL VACCINE SERIESAged OutNo longer eligible based on patient's age to complete this topic Procedures Procedure NamePriorityDate/TimeAssociated DiagnosisCommentsCHLAMYDIA & GONORRHEA AMPLIFIED HGAWCSivmycc22/25/2021 9:03 PM EDT from Last 3 Months or Most Recently Relevant to Health Maintenance Results * CHLAMYDIA & GONORRHEA AMPLIFIED PROBE (12/29/2020 9:03 PM EDT)ComponentValue Ref RangeTest MethodAnalysis TimePerformed AtPathologist SignatureChlamydia trachomatis Amplified ProbeNot DetectedNot Detected, Sbebarqepglbj36/26/2021 8:13 PM [facility] CLINICAL LABORATORYNeisseria gonorrhea Amplified ProbeNot DetectedNot Xkrmsgfu76/26/2021 8:13 PM [facility] CLINICAL LABORATORYSpecimen (Source)Anatomical Location / LateralityCollection Method / VolumeCollection TimeReceived TimeGenital Fluid/SwabCERVICAL SWAB / Unknown 12/29/2020 9:03 PM EDT12/29/2020 9:19 PM EDT [facility] - 12/30/2020 8:13 PM EDT This test was performed using a real time PCR assay. Authorizing ProviderResult TypeResult StatusCraig B Arvizu MDMICROBIOLOGY - GENERAL ORDERABLESFinal ResultPerforming OrganizationAddressCity/State/ZIP CodePhone Number [facility] [address] [place] [address] from Last 3 Months or Most Recently Relevant to Health Maintenance Insurance
--- OUTSIDE RECORDS SUMMARY | 2025-03-27 12:56 | XMS_ITS | Clinical Summary ---
Author Organization [facility] tem Address [id number] [address] [place] [address] Care Team Providers Care Marker Maker Name Role Phone Cristin Delgado MD Primary Care Provider [phone] Allergies No known active allergies Medications MedicationSigDispense QuantityRefillsLast FilledStart DateEnd DateStatus esomeprazole (NexIUM) 40 mg capsule Take 1 capsule (40 mg total) by mouth every morning before breakfast.12/15/2024 Active ondansetron ODT (ZOFRAN ODT) 4 mg disintegrating tablet Dissolve 1 tablet (4 mg total) on tongue as needed for nausea.5Active Active Problems ProblemNoted DateDiagnosed RgznTrvhmikrr50/13/2025 Encounters DateTypeDepartmentCare CzsgZkcgdvsmnns64/04/2025Results Follow-Up [facility] - [facility] [address] [place] [address] Alexus Elizabeth APRN-CNP Ultrasound pelvic with fjomhthzpmgp29/29/2025 10:00 AM EDT - 02/02/2025 11:59 PM EDTHospital Encounter [facility] [address] [place] [address] Alexus Elizabeth APRN-CNP Adnexal cyst Discharge Disposition: Home02/02/20254285Ixfmad70/28/9719Yitimp25/13/2025 2:30 PM EDTOffice Visit [facility] - [facility] [address] [place] [address] Adnexal cyst (Primary Dx)01/16/2025Travelfrom Last 3 Months Family History Medical HistoryRelationNameCommentsAlcohol abuseFatherDan HoffmanArthritisMother Renée BuimanDepressionMotherLaurileslye BuimanHypertensionMotherLaurie Sakshi DiabetesPaternal GrandfatherLexx jackArthritisPaternal GrandmotherShibrendan jackKidney diseasePaternal GrandmotherShirsharon jackStrokePaternal GrandmotherSnadeem jackUterine cancerPaternal GrandmotherShirsahron jack Breast cancerNeg HxColon cancerNeg HxOvarian cancerNeg HxRelationNameStatus CommentsFatherDan SakshiAliveMotherLaurileslye CantorAlivePaternal GrandfatherLexx jackAlivePaternal GrandmotherSnadeem jackAlive Social History Tobacco UseTypesPacks/DayYears UsedDateSmoking Tobacco: NeverSmokeless Tobacco: NeverAlcohol UseStandard Drinks/WeekCommentsNot Currently0 (1 standard drink = 0.6 oz pure alcohol)ChildcareAnswerDate SekbtesrKccjpmgexPuuxapl11/12/2019 EmploymentAnswerDate ZobkaolhTrhdmsaqfuBqabbdn41/12/2019Hunger ScreeningAnswer Date RecordedWithin the past 12 months we worried whether our food would run out before we got money to buy more.Never True01/17/2025Within the past 12 months the food we bought just didn't last and we didn't have money to get more.Never True01/17/2025CommentsNoSex and Gender InformationValueDate RecordedSex Assigned at BirthNot on fileLegal BquFimnoa12/06/2015 11:55 AM EDTGender IdentityNot on fileSexual OrientationNot on file Last Filed Vital Signs Vital SignReadingTime TakenCommentsBlood Bjosqgmc43/6008 2:29 PM EDT Pulse--Temperature--Respiratory Rate--Oxygen Saturation--Inhaled Oxygen Concentration--Gzizqu82.4 kg (109 lb)01/17/2025 2:29 PM GPJXxovei172.6 cm (5' 4 )01/17/2025 2:29 PM EDTBody Mass Index18.71001/17/2025 2:29 PM EDT Plan of Treatment Health MaintenanceDue DateLast DoneCommentsDepression Nufflvtby10/12/2011Pap Smear10/17/2019DTaP,Tdap and Td Vaccines (7 - Td or Tdap)/02/2011, 01/11/2004, 04/19/2000, Additional history existsCOVID-19 Vaccine (2024- season), 03/14/2021Influenza Bpvqizn6202/05/2025dult BMI Npudpvsyf74Tobacco Gxuplysbh86 Medical Devices Not on file Procedures Procedure NamePriorityDate/TimeAssociated DiagnosisCommentsUS PELVIC WITH IVBYREBBEXMEFbzmnqw26/29/2025 10:39 AM EDT Adnexal cyst from Last 3 Months Results * Ultrasound pelvic with transvaginal (02/02/2025 10:39 AM EDT)Anatomical Region LateralityModalityBody, PelvisUltrasoundSpecimen (Source)Anatomical Location / LateralityCollection Method / VolumeCollection TimeReceived Time02/08/2025 9:02 AM EDT Narrative 02/08/2025 9:05 AM EDT HISTORY: A 24-year-old female with a history of the left ovarian cyst on the CT scan of the abdomen and pelvis at the outside facility. Follow-up examination. TECHNIQUE: ??Multiple real-time images of the pelvis are obtained by using transabdominal and transvaginal approaches. Color Doppler study is performed. COMPARISON: ??No relevant prior studies are available for comparison. FINDINGS: ??Uterus is anteverted. Uterus measures 7.1 x 3.4 x 4.3 cm. Endometrial echo stripe thickness measures 8 mm. No focal mass is seen in the uterine wall. Cervix is unremarkable. Right ovary measures 2.6 x 1.9 x 2.2 cm. Left ovary measures 3.6 x 2.6 x 2.8 cm. There is a cyst inthe left ovary and measures 2.5 x 1.7 x 1.8 cm. There are small follicles in both ovaries. Color Doppler study reveals presence of the color Doppler flow in both ovaries without evidence of torsion. No free fluid is seen in the cul-de-sac. IMPRESSION: * ??Normal uterus. * ??There is a 2.5 x 1.8 x 1.7 cm left ovarian cyst or follicle. There are additional small follicles in both ovaries. * ??No evidence of ovarian torsion. * ??No free fluid is seen in the cul-de-sac. Finalized by Kalin Huston MD on 02/08/2025 9:05 AM Procedure Note Kalin Huston MD - 02/08/2025 HISTORY: A 24-year-old female with a history of the left ovarian cyst onthe CT scan of the abdomen and pelvis at the outside facility. Follow-upexamination. TECHNIQUE: Multiple real-time images of the pelvis are obtained by using transabdominal and transvaginal approaches. Color Doppler study isperformed. COMPARISON: No relevant prior studies are available for comparison. FINDINGS: Uterus is anteverted. Uterus measures 7.1 x 3.4 x 4.3 cm.Endometrial echo stripe thickness measures 8 mm. No focal mass is seen inthe uterine wall. Cervix is unremarkable. Right ovary measures 2.6 x 1.9 x 2.2 cm. Left ovary measures 3.6 x 2.6 x2.8 cm. There is a cyst in the left ovary and measures 2.5 x 1.7 x 1.8 cm.There are small follicles in both ovaries. Color Doppler study reveals presence of the color Doppler flow in bothovaries without evidence of torsion. No free fluid is seen in the cul-de-sac. IMPRESSION: * Normal uterus. * There is a 2.5 x 1.8 x 1.7 cm left ovarian cyst or follicle. There are additional small follicles in both ovaries. * No evidence of ovarian torsion. * No free fluid is seen in the cul-de-sac. 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
--- OUTSIDE RECORDS SUMMARY | 2025-03-27 12:56 | XMS_ITS | Patient Health Record ---
Author Organization [facility] vices Address [address] [place], [place] [id number] Care Team Providers Care Circuit Manager Name Role Phone Cristin Delgado Primary Care Provider Darcie Cantor Unavailable [phone] Allergies No Known Allergies Results Component Value Reference Range Notes UDS PAP Screening Reviewed date:02/07/2025 09:35:29 AM Interpretation: Performing Lab: Notes/Report: HELICOBACTER PYLORI Reviewed date:12/16/2024 01:40:44 PM Interpretation: Performing Lab: Notes/Report: HELICOBACTER PYLORI, C UREA BREATH TEST Negative Negative Result indicates the absence of current Helicobacter pylori infection. Test Performed by: [facility] [address] [place], [place] [id number] Freight Breaker: Melva Parks Ph.D.; CLIA# [id number] Reason For Referral Reason possible IBS pls mario l, abdominal cramp relieved with stooling, alternate between diarrhea and constipation , bristol stool #3,4,5 Diagnosis 1 Abdominal cramping ( R10.9) Referral Organization [facility] Referring Provider First Name Cristin Referring Provider Last Name Danny Referring Provider Speciality Family Med icine Referred Provider Renato Purdy ve Referred Provider Specialty Gastroentero logy General Notes Chela Stanford 02/08/20 02:49:58 PM >Pt has appt 02/23, referral office stated they will fax note after appt.Abdoulaye Kasie 03/22/2025 01:48:15 PM >Spoke with referral office, they are faxing note over Referral Priority Routine Referral Appointment Date 02/23/2025 Medications Medication SIG (Take, Route, Frequency, Duration) Notes Start Date End Date Status Ondansetron 4 MG 1 tablet on the tongue and allow to dissolve Orally every 8 hours; Duration: 15 days As needed 5ActiveNexIUM 40 MG1 capsule 1/2 to 1 hour before morning meal Orally Once a day; Duration: 30 days5Active Social History Tobacco Use: Social History Observation Description Date Details (start date - stop date) Never Smoker NA - NA Sex Assigned At : Social History Observation Description Sex Assigned At Female Tobacco Use/Smoking Question Answer Notes Tobacco use: nonsmoker patient enter ed data CAGE-AID Questionnaire (2018 Edition) Question Answer Notes Have you ever felt that you ought to cut down on your drinking or drug use? No patient entered data Have people annoyed you by c riticizing your drinking or drug use? No patient entered data Have you ever felt bad or gu ilty about your drinking or drug use? No patient entered data Have you ever had a drink or used drugs first thing in the morning to steady your nerves or to get rid of a hangover? No patient entered data CAGE-AID Score 0 InterpretationNegativePRAPARE Question Answer Notes Date Completed/Updated: 02/06/2025 [place] nt entered data What is your current housing situation? I have housing patient entered data Are you worried about losing your housing? No patient entered data What is the highest level of school that you have finished? 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 Check all that apply I do not have problems meeting my needs Has lack of transportation kept you from medical appointments, meetings, work or from getting things needed for daily living?NoHow often do you see or talk to people that you care about and feel close to? (For example: talkingto friends on the phone, visiting friends or family, going to zoroastrianism or club meetings)More than 5 times a weekpatient entered dataHow stressed are you? Stress is when someone feels tense, nervous, anxious, or can't sleep at nightbecause their mind is troubledSomewhatpatient entered dataIn the past year have you spent more than 2 nights in a row in a longterm, fdc, shelter center, orjuvenile correctional facility?Nopatient entered dataAre you a refugee?Nopatient entered dataWhat country are you from?[place] Statespatient entered dataDo you feel physically and emotionally safe where you currently live?Yespatient entered dataIn the past year, have you been afraid of your partner or ex-partner?I have not had a partner in the past yearpatient entered data PRAPARE Score:1 Problems Problem Type SNOMED Code ICD Code Onset Dates Problem Status W/U Status Risk Notes Problem Right lower quadrant pain (29809 [id number]) Abdominal pain, acute, bilateral lower quadrant (R10.31) Activeconfirmed Comment:Very mild and no other symptoms, she is 1 week away from menstruation and has no GI symptoms and no fever Started 2 hours ago I advised her to monitor her symptoms and watch the trend and see what happens, inform me of any changes and if any fever happens visit ER No symptoms, no urinary symptoms, no recent drug or alcohol, no new sexual partner, ProblemDyspepsia ([id number])Dyspepsia (R10.13)Activeconfirmed Comment:Feeling much better on PPI I explained that she has to make a diary and avoid food that make her sick and also to eat smaller meals and more frequent No red flags Continue with PPI regimen FU in 6 months,Story:Negative H Pylori, Vital Signs Heart Rate 80 /min 02/06/2025 Jackie Buitrago 10:04:53 AM EDT > Temperature 98.0 degrees Fahrenheit 02/06/2025 Jackie Buitrago 02/06/2025 10:04:53 AM EDT > Respiratory Rate 16 /min 02/06/2025 Jerad Buitrago 02/06/2025 10:04:53 AM EDT > Blood pressure diastolic 74 mm Hg 02/06/2025 Jackie Sears 02/06/2025 10:04:53 AM EDT > Oximetry 99 % 02/06/2025 Jackie Buitrago 10:04:53 AM EDT > Height-cm 162.56 cm 02/06/2025 Iftikhar Jackie 10:04:53 AM EDT > Weight-kg 49.12 kg 02/06/2025 Iftikhar Jackie 10:04:53 AM EDT > Height 64.00 in 02/06/2025 Iftikhar Jackie 10:04:53 AM EDT > Blood pressure systolic 120 mm Hg 02/06/2025 Iftikhar Jackie 02/06/2025 10:04:53 AM EDT > Weight 108.3 lbs 02/06/2025 Iftikhar Jackie 10:04:53 AM EDT > BMI 18.59 kg/m2 02/06/2025 Iftikhar Jackie 10:04:53 AM EDT > Encounters Encounter Location Date Provider Diagnosis [address] [place] [address] 12/15/2024 Cristin Danny Abdominal pain R1 0.9 ; Nausea and vomiting R11.2 ; Dietary counseling Z71.3 and Exercise counseling Z71.[address] [address] 01/09/2025 Cristin Danny Alternating const ipation and diarrhea R19.8 ; Abdominal cramping R10.9 ; Dyspepsia R10.13 and Anal bleeding K62.5 [address] [place], [place] [phone] [facility] ; Dyspepsia R10.13 and Cervical cancer screening Z12.4 [facility] [address] [place], [place] [id number] 12/15/2024 Cristin Danny [id number] [place] [address]/11/2025Ogechi OnuohaAbdominal pain [id number] [facility] [place] [place] [address]/11/2025 Cristin OnuohaAbdominal pain R10.9 Assessments Encounter Date Diagnosis (ICD Code) Assessment Notes Treatment Notes Treatment Clinical Notes Section Notes 12/15/2024 Nausea and vomiting (ICD-10 - R1 1.2) 12/15/2024bdominal pain (ICD-10 - R10.9)Differential diagnosis includes gastritis, PUD,colitis and GERD; awaiting H. pylori breath test results and advised to start PPI afterward, with follow-up in 4 weeks; patient instructed to report immediately to the ER if pain worsens, or if there is blood in stool or fever. If the PPI does not improve symptoms, the patient will be referred to gastroenterology for further evaluation.12/15/2024bdominal pain (ICD-10 - R10.9)12/15/2024bdominal pain (ICD-10 - R10.9)01/09/2025bdominal cramping (ICD-10 - R10.9)Take jzcijlioe02/05/2025lternating constipation and diarrhea (ICD-10 - R19.8)02/06/2025Wellness examination (ICD-10 - Z00.00) Pt is here for wellness today. Overall health is okay. I advised regular exercise and eating a balanced diet with focus on eating less fried and fatty foods and eating more fresh fruits and vegetable in an attempt to achieve and maintain a healthy BMI and PVU Advised on regular dental check/hygiene f/u with dentist as needed. We discussed the importance of vaccination including covid shots and yearly flu shots and all questions were answered in detail today. 02/06/2025Dyspepsia (ICD-10 - R10.13)Doing well. No refills needed. Follow up as hhydxs6002/06/2025ervical cancer screening (ICD-10 - Z12.4)01/09/2025Dyspepsia (ICD-10 - R10.13)Continue PPI01/09/2025nal bleeding (ICD-10 - K62.5) DDX: anal fissure, hemmoriod pt advised to use soft toilet wipes, take miralx as needed to make stool softer apply lubricant aorund anal surface before each hard stool Hydrate well. 12/15/2024Dietary counseling (ICD-10 - Z71.3)12/15/2024Exercise counseling (ICD- 10 - Z71.82) Plan Of Treatment No Information Insurance Providers Payer Name Payer Address Payer Phone Subscriber Number Group Number Insured Name Patient Relationship to Insured Coverage Start Date Coverage End Date [employer] [address] [id number] [place], [place] [id number] Sonia Cantor Self - patient is the insured 5 Medical (General) History Medical History History ICD Code Numbness and tingling, ProblemStatus: Ac tive, , Surgical History Surgery Date(Month/Year) Tonsillectomy and adenoidectomy, Problem Status: Active,
--- OUTSIDE RECORDS SUMMARY | 2025-03-27 12:57 | XMS_ITS | CCD ---
Author Organization [facility] Care Team Providers [employer] Name Role Phone MARY VERGARA Unavailable Unavailable [...] UnavailPaulette Haque Unavailable ASH BROCK Attending Unavailable Cristin Delgado MD Primary Care Provider HANNAH, CRISTIN Miguel Referring Unavailable HANNAH, CRISTIN C Primary Care Unavailable HANNAH, CRISTIN C Referring Unavailable HANNAH, CRISTIN C Primary Care Unavailable ALEXUS ELIZABETH Attending Unavailable ALEXUS ELIZABETH Referring Unavailable HANNAH, CRISTIN C Primary Care Unavailable HANNAH, CRISTIN Primary Care Physician Unavailab le Deni Frederick Admitting Unavaila ble Deni Frederick Attending Unavaila ble Deni Frederick Attending Unavaila ble Allergies Allergy ClassificationReported Allergen(s)Allergy TypeDate of OnsetReaction(s) Facility (1 source)No Known Medication Allergies; Translations: [No Known Medication Allergies]Propensity to adverse reactions (disorder)[facility] Repository Medications Current Medications MedicationDrug Class(es)DatesSig (Normalized)Sig (Original)dextromethorphan hydrobromide 1.5 mg/ml / pyrilamine maleate 1.5 mg/ml oral solution (1 source)Uncompetitive O-iuufnh-X-aspartate Receptor Antagonist, Sigma-1 AgonistStart: 31-57-5875cvaw 10 mL by mouth every eight hoursCapron DM 7.5-7.5 MG/5ML 10 mL Orally every 8 hours for 5 days Feb, Activedicyclomine hydrochloride 10 mg oral capsule (1 source)AnticholinergicStart: 02-23-2025 End: 70-82-8790dhet 1 capsule by mouth four times dailyBentyl 10 mg Cap 10 mg = 1 cap(s), Oral, QID, X 14 day(s), # 56 cap(s), Refills(s) 3, Pharmacy: [facility], 162.5, cm, 02/23/25 9:06:00 EDT, Height/Length Dosing, 51.4, kg, 02/23/25 9:06:00 EDT, Weight Dosing Start Date: 02/23/25 Stop Date: 04/20/25 Status: Ordered Quantity: 56.0 Unit: cap(s) Repeat number: 4esomeprazole 40 mg delayed release oral capsule (2 sources)Proton Pump InhibitorStart: 54-97-9520bsqb 1 capsule by mouth once daily before breakfastesomeprazole (NexIUM) 40 mg capsule Take 1 capsule (40 mg total) by mouth every morning before breakfast. 12/15/2024 ActiveIbgard 90 mg oral delayed release capsule (1 source)Start: 89-57-8334bjes 2 capsules by mouth twice dailyIbgard 90 mg oral delayed release capsule 180 mg = 2 cap(s), Oral, BID, # 60 cap(s), Refills(s) 0, Pharmacy: [facility], 162.5, cm, 02/23/25 9:06:00 EDT, Height/Length Dosing, 51.4, kg, 02/23/25 9:06:00 EDT, Weight Dosing Start Date: 02/23/25 Status: Ordered Quantity: 60.0 Unit: cap(s) Repeat number: 1{2 (480 ML) (magnesium sulfate 0.0277 MEQ/ML / potassium sulfate 0.0374 MEQ/ML / sodium sulfate 0.257 MEQ/ML Oral Solution) } Pack [Suprep Bowel Prep Kit] (1 source)Start: 30-59-3988Bdbnlm Bowel Prep Kit oral liquid 177 mL, Oral, As Directed for 2 dose(s), 1 kit(s), Refill(s) 0, dilute each 177 ml bottle and drink according to box directions or [facility], 162.5, cm, 02/23/25 9:06:00 EDT, Height/Length Dosing, 51.4, kg, 02/23/25 9:06:00 EDT, Weight Dosing Start Date: 02/23/25 Status: Ordered Quantity: 1.0 Unit: kit(s) Repeat number: 1methylPREDNISolone 4 mg oral tablet (1 source)CorticosteroidStart: 42-64-2347jxjgyaZQIZMRYatmmr 4 MG as directed Orally for daily dose take half with breakfast, half with dinner for 6 days Feb, Activeondansetron 4 mg disintegrating oral tablet (3 sources)Serotonin-3 Receptor AntagonistStart: 65-55-8374rzzxvuqwfdc ODT (ZOFRAN ODT) 4 mg disintegrating tablet Dissolve 1 tablet (4 mg total) on tongue asneeded for nausea. 12/15/2024 ActiveStart: 41-38-8396Bhsuf: 24-59-0288apio 1 tablet by mouth every eight hours as neededondansetron (ZOFRAN ODT) 4 MG disintegrating tablet Dissolve 1 (one) tablet (4 mg total) on top of tongue every 8 (eight) hours as needed for nausea . 20 tablet 0 05/02/2018 Active polyethylene glycol 3350 41272 mg powder for oral solution (1 source)Osmotic LaxativeStart: 63-13-1249zacpawpdyogg glycol (MiraLax) 17 GM/SCOOP Powder powder 1 capful (17g) in 4-8 ounces of beverage POQHS 527 g 0 12/30/2020 ActiveStart: 24-37-1275jytwekwkphwu glycol (MiraLax) 17 GM/SCOOP Powder powder 1 capful (17g) in 4-8 ounces of beverage POQHS 527 g 0 12/30/2020 Active Completed/Discontinued Medications MedicationDrug Class(es)DatesSig (Normalized)Sig (Original)magnesium citrate 58.2 mg/ml oral solution (1 source)Start: 12-29-2020 End: 62-13-0823fsfzkxvef citrate (MAGCITRATE) oral solution 296 wJ3716 ml sodium chloride 9 mg/ml injection (2 sources)Start: 04-13-2020 End: 24-51-9945buemef chloride 0.9% (NS) bolus 1,000 mL Problems Active Problems Problem ClassificationProblemDateDocumented DateEpisodic/ChronicAbdominal pain (5 sources)Abdominal pain; Translations: [Indigestion]Onset: 01-17-2025 03-35-3256TrvdoksuIenygcu dysrhythmias (2 sources)Tachycardia, unspecified; Translations: [Tachycardia, unspecified] Onset: 34-10-5262QuhxhgqrAskae and electrolyte disorders (2 sources)Dehydration; Translations: [Dehydration]Onset: 20-55-2469Usbqpxcm Genitourinary symptoms and ill-defined conditions (1 source)History of urinary tract zjqemwida46-26-2772DvqxxjgnKxrky female genital disorders (1 source)Cyst of uterine adnexa; Translations: [Unspecified condition associated with female genital organs and menstrual cycle]39-47-1179Duojozhx Other female genital disorders (2 sources)Unspecified condition associated with female genital organs and menstrual cycle; Translations: [Unspecified condition associated with female genital organs and menstrual cycle]Onset: 02-35-1641DfhqrkzdYfspy gastrointestinal disorders (2 sources)Irritable bowel syndrome; Translations: [Irritable bowel syndrome without diarrhea]Onset: 86-57-3945KrqhhutEvsuy gastrointestinal disorders (3 sources)Diarrhea, unspecified; Translations: [DIARRHEA UNSPECIFIED]Onset: 02-94-7915IzuxjjqsIawvh gastrointestinal disorders (1 source)Disorder of intestine; Translations: [Disease of intestine, unspecified]Onset: 97-30-5870HlyvcptuMakrp gastrointestinal disorders (1 source)Disorder of wcwik32-72-5671FrfvwdmeVsxfy nutritional; endocrine; and metabolic disorders (1 source)Hypercalcemia; Translations: [Hypercalcemia]Onset: 65-31-5561Mwhtddn Other nutritional; endocrine; and metabolic disorders (1 source)Pdiajxjblskqc40-78-0678QecvwtuYdljf upper respiratory infections (1 source)Acute upper respiratory infection, unspecifiedEpisodicPoisoning by nonmedicinal substances (1 source)Toxic effect of other specified noxious substances eaten as food, accidental (unintentional), initial encounter; Translations: [TOX EFF NOX SUBSTANC EATEN ACC INIT]Onset: 82-14-3831Wocntkbtihd; intervertebral disc disorders; other back problems (2 sources)Acute low back pain; Translations: [Backache]66-88-4995Zfcfiphr Unclassified (1 source)Ovarian CystOnset: 73-83-4256Uhvhznkvoqge (1 source)Finding of sensation of njzaanm16-92-4350Zkhldwc tract infections (2 sources)Acute pyelonephritis; Translations: [Acute pyelonephritis]Onset: 12-73-4070Edzthued Past or Other Problems Problem ClassificationProblemDateDocumented DateEpisodic/ChronicOther gastrointestinal disorders (1 source)Constipation; Translations: [Constipation, unspecified]Episodic Results Test NameValueInterpretationReference RangeFacilityAmbulatory Visit Summaryon 41-56-2045Uzzodupobh Visit SummaryAmbulatory Visit Summary SONIA LANDRY :2000 Visit Date:02/23/2025 Ambulatory Visit Instructions Your Diagnosis IBS (irritable bowel syndrome) Abdominal cramping Hypercalcemia Colonic thickening Your Care Team Attending Physician - Deni Frederick MD Primary Care Physician - CRISTIN DELGADO This Is Your Medications List dicyclomine (Bentyl 10 mg Cap) magnesium/potassium/sodium sulfates (obsolete) (Suprep Bowel Prep Kit oral liquid) peppermint oil (Ibgard 90 mg oral delayed release capsule) Contact prescribing physician if questions or concerns esomeprazole (Nexium 40 mg Cap-EC) ondansetron (ondansetron 4 mg Dis Tab) Discharge Vitals Heart Rate (Peripheral) 90 Blood Pressure 115/75 Height 162.5 cm Height 64 in Weight 51.4 kg Weight 113.317 lb BMI 19.47 Medications What How Much When Instructions New dicyclomine (Bentyl 10 mg Cap) 1 Capsules By Mouth 4 times a day Duration: 14 Days Refills: 3 Pickup at [facility] New magnesium/ potassium/ sodium sulfates (obsolete) (Suprep Bowel Prep Kit oral liquid) 177 Milliliter By Mouth As Directed Duration: 2 Doses dilute each 177 ml bottle and drink according to box directions or as directed by physician Pickup at [facility] New peppermint oil (Ibgard 90 mg oral delayed release capsule) 2 Capsules By Mouth 2 times a day Pickup at [facility] Unchanged esomeprazole (Nexium 40 mg Cap-EC) 0 Refill(s) Contact prescribing physician if questionsor concerns Unchanged ondansetron (ondansetron 4 mg Dis Tab) 3 times a day 1 Unknown, 0 Refill(s) Contact prescribing physician if questions or concerns Pharmacy Information [facility]: [address] [place], [place] [id number] [phone] Allergies No Known Medication Allergies Problems Ongoing - Any problem that you are currently receiving treatment for. Abdominal cramping Backache Colonic thickening Epigastric pain History of urinary tract infection. Hypercalcemia IBS (irritable bowel syndrome) Right lower quadrant pain Patient Survey You may receive a survey via text or e-mail asking about your office visit. Please share your experience with us by completing your survey. We appreciate your feedback and thank you for choosing us for your care. Patient Portal You may access all of your results and other medical record information on our secure patient portal. If you are not signed up for this yet, please contact [employer] at [phone] to get signed up today. Language Information Language assistance services are available as needed. [facility] Office/Clinic Noteon [id number] Office/Clinic NoteGastroenterology Office/Clinic Note Chief Complaint Abdominal cramping, burning, diarrhea and constipation HPI Staff New patient is a(n) 24 year old female who was referred by Dr Cristin Delgado for IBS, abdominal cramping, burning and alternating constipation/diarrhea. CT done at [facility]- patient states that she was told that her colon was inflamed No office visit note attached to referral. Called PCP office 02/21/25 to send notes and any testing results. IBS: BM's a day: 1-2 And has gone 2-3 days without BM Improving/worsening factors: Recently changed diet and avoids alcohol, spicy, red meat and greasy foods Treatments tried: Nexium - and still has burning Any blood thinners? Any GLP-1 agonists? H pylori Breath Test 12/15/24 @ [facility]: negative US pelvic w/transvaginal 02/08/25 @ [facility]: IMPRESSION: * Normal uterus. * There is a 2.5 x 1.8 x 1.7 cm left ovarian cyst or follicle. There are additional small folliclesin both ovaries. * No evidence of ovarian torsion. * No free fluid is seen in the cul-de-sac. Labs 12/10/24 @ [facility]: Lymphocytes % Auto 20.4 (L) Eosinophils Percent Auto 0.3 (L) otherwise normal CBC Glucose 116 (H) Calcium 10.2 (H) AST 10 (L) otherwise normal CMP CT abd/pel 12/10/24: Mild colonic wall thickened throughout the colon may represent mild colitis versus under distention 2.4 cm left adnexal cyst History of Present Illness Reviewed HPI collected by staff Review of Systems PHQ Score Initial Depression Screen Score: 0 SCORE All systems reviewed, negative; Except for above Physical Exam Vitals & Measurements HR: 90(Peripheral) BP: 115/75 HT: 162.5 cm HT: 64 in WT: 51.4 kg WT: 113.317 lb BMI: 19.47 No acute distress Assessment/Plan 1. IBS (irritable bowel syndrome) (K58.9: Irritable bowel syndrome, unspecified) Having 1-2 BMs in a day but will go 2-3 days without a BM at times Stools alternate in consistency - Recommended water-soluble fibers (Metamucil or Citracel) - Advised to get prunes, kiwi fruits and stay well hydrated 2. Abdominal cramping (R10.9: Unspecified abdominal pain) Intermittent the last 4-5 years C/o burning and cramping in abdomen, diffuse Has about 1 episode a month Sometimes last 24+ hours Went to [facility] 12/2024, given Pepcid which did not help Has had improvement with some diet changes, avoids alcohol and spicy and processed foods Relief with Nexium Likely visceral hypersensitivity CT 12/2024: Mild colonic wall thickened throughout the colon may represent mild colitis versus underdistention H pylori Breath Test 12/15/24 @ [facility]: negative - IBGard and Bentyl prescribed - Continue Nexium - Schedule EGD to evaluate. Discussed risks such as bleeding, injury and perforation as well as benefits. Patient agreeable. 3. Hypercalcemia (E83.52: Hypercalcemia) 12/10/24: 10.2 Advised to discuss with PCP 4. Colonic thickening (K63.9: Disease of intestine, unspecified) Seen on CT 12/2024 - Schedule Colonoscopy to evaluate. Discussed risks such as bleeding, injury and perforation as well as benefits. Patient agreeable. IRenetta, personally scribed for Deni Frederick on 02/23/2025 09:26:35. . Follow-up No qualifying data available Problem List/Past Medical History Ongoing Abdominal cramping Backache Colonic thickening Epigastric pain History of urinary tract infection. Hypercalcemia IBS (irritable bowel syndrome) Right lower quadrant pain Historical No qualifying data Medications Bentyl 10 mg Cap, 10 mg= 1 cap(s), Oral, QID, 3 refills Ibgard 90 mg oral delayed release capsule, 180 mg= 2 cap(s), Oral, BID Nexium 40 mg Cap-EC ondansetron 4 mg Dis Tab, TID Suprep Bowel Prep Kit oral liquid, 177 mL, Oral, As Directed Allergies No Known Medication Allergies Social History Alcohol Past. Beer, Wine, Liquor. 1-2 times per year., 02/22/2025 Substance Abuse Never., 02/22/2025 Tobacco Never (less than 100 in lifetime) Tobacco Use:. Never Smokeless Tobacco Use:., 02/23/2025 Family History Acute myocardial infarction: Grandparent. Gallstones: Mother and Brother. Hypertension: Mother. Kidney disease: Grandparent. Peptic ulcer: Mother. Primary malignant neoplasm of female genital organ: Grandparent. Immunizations Vaccine Date Status Comments SARS-CoV-2 (COVID-19) mRNA BNT-162b2 vax 04/04/2021 Recorded 2025-02-21: TPVAL SARS-CoV-2 (COVID-19) mRNA BNT-162b2 vax 03/14/2021 Recorded 2025-02-21: TPVAL meningococcal conjugate vaccine 12/11/2015 Recorded diphtheria/pertussis, acel/tetanus adult 10/13/2010 Recorded poliovirus vaccine, inactivated 01/11/2004 Recorded measles/mumps/rubella virus vaccine 01/11/2004 Recorded diphtheria/pertussis, acel/tetanus ped 01/11/2004 Recorded Hib, unspecified formulation 04/19/2000 Recorded DTaP, unspecified formulation 04/19/2000 Recorded varicella virus (more content not included)...[facility] Comment on above:Result Comment: Electronically Signed By: Yoly MANZANARES, Deni Roberts\.br\Date and Time Signed: 02/23/25 11:41 EDT\.br\Electronically Co-Signed By: Renetta Parnell MA\.br\Date and Time Co-Signed: 02/23/25 09:35 EDTUS PELVIC WITH TRANSVAGINALon 81-98-4694US PELVIC WITH TRANSVAGINALUS PELVIC WITH TRANSVAGINAL HISTORY: A 24-year-old female with a history of the left ovarian cyst on the CT scan of the abdomenand pelvis at the outside facility. Follow-up examination. TECHNIQUE: Multiple real-time images of the pelvis are obtained by using transabdominal and transvaginal approaches. Color Doppler study is performed. COMPARISON: No relevant prior studies are available [...] cyst or follicle. There are additional small folliclesin both ovaries. * No evidence of ovarian torsion. * No free fluid is seen in the cul-de-sac. Finalized by Kalin Huston MD on 02/08/2025 9:05 AMNormalProMedica [facility] PYLORI BREATH ADULTon 28-75-7593ZNWRMBTYZEVW PYLORI, C UREA BREATH TESTNegativeNormalNegativeProMedica Natividad Medical CenterComment on above:Result Comment: Result indicates the absence of current Helicobacter pylori infection. Test Performed by: [facility] [address] [place] [address] Manager Land: Melva Parks Ph.D.; CLIA# [id number] By: #### UBT #### [facility] (SDL) [address] [place] [address] VIREXTRA MICROon 78-96-4901EHO [facility] CenterURINE DIPSTICK; REFLEX MICROSCOPY; REFLEX CULTURE PERFORMABLEon 35-23-5057Kbjzvhzwwp (U)ClearNormalClearKettering Health Main CampusComment on above: Performed By: #### [id number] #### [facility] (DEFAULT) [address] [address]Wayxr UrineNegativeNormalNegMercy Health Perrysburg HospitalComment on above:Performed By: #### [id number] #### [facility] (DEFAULT) [address] [address]Uojrt (U)YellowNormalYellowKettering Health Main CampusComment on above:Performed By: #### [id number] #### [facility] (DEFAULT) [address] [address]Aazkiti Ql (U)NegativeNormalNegMercy Health Perrysburg HospitalComment on above:Performed By: #### [id number] #### [facility] (DEFAULT) [address] [address]Qwoaewh Ql (U)15 mg/dL = SmallAbnormalNegMercy Health Perrysburg HospitalComment on above:Performed By: #### [id number] #### [facility] (DEFAULT) [address] [address]Scvpbqggk esterase Test strip Ql (U)NegativeNormalNegMercy Health Perrysburg HospitalComment on above:Performed By: #### [id number] #### [facility] (DEFAULT) [address] [place] [address]Hhbklxie UrineNegativeNormalNegativeKettering Health Main CampusComment on above:Performed By: #### [id number] #### [facility] (DEFAULT) [address] [place] [address]hL (U)5.0 [pH]Normal5.0-7.0[facility] CampusComment on above:Performed By: #### [id number] #### [facility] (DEFAULT) [address] [place] [address]Wgjbiuh UrineTraceAbnormalNegativeKettering Health Main CampusComment on above:Performed By: #### [id number] #### U [facility] (DEFAULT) [address] [place] [address]Nsjrbvjg [place] Urine>=1.030Normal>1.001-<1.035K[facility] Main CampusComment on above:Performed By: #### [id number] #### U [facility] (DEFAULT) [address] [place] [address]Htpbgiomwfjp Urine0.2 E.U./dLNormal0.2-1.0[facility] CampusComment on above:Performed By: #### [id number] #### [facility] (DEFAULT) [address] [place] [address]HCPN HCG, QUANT, BLOODon 24-93-5722QDE (Quant) Serum<2.6Normal [facility] CampusComment on above:Result Comment: Non- : <10 mIU/mL Postmenopause: <10 mIU/mL Male: <10 mIU/mL FEMALE GESTATIONAL AGE 2-4 Weeks: 39.1-8,388 mIU/mL 5-6 Weeks: 861-88,769 mIU/mL 6-8 Weeks: 8,636-218,085 mIU/mL 8-10 Weeks: 18,700-244,467 mIU/mL 10-12 Weeks: 23,143-181,899 mIU/mL 13-27 Weeks: 6,303-97,171 mIU/mL 24-40 Weeks: 4,360-74,883 mIU/mL Test results cannot be interpreted as absolute evidence for the presence or absence of malignant disease.Performed By: #### QHCGB #### [facility] (DEFAULT) [address] [place] [address]ULW AND ELECTRONIC DIFFon 82-70-0822Pilfvrcdj (Bld) [#/Vol] 10*3/uLNormal0.00-0.15[facility] CampusComment on above:Performed By: #### [id number] #### [facility] (DEFAULT) [address] [place] [address]Jhpwgkxsq/100 WBC (Bld)0.2 %NormalKettering Health Main CampusComment on above:Performed By: #### [id number] #### [facility] (DEFAULT) [address] [place] [address]FKUQ STATUSElectronic DifferentialNoalOCommunity Regional Medical CenterComment on above:Performed By: #### [id number] #### [facility] (DEFAULT) [address] [place] [address]Sbiieptrreb (Bld) [#/Vol]10*3/uLNormal0.00-0.42[facility] CampusComment on above:Performed By: #### [id number] #### [facility] (DEFAULT) [address] [place] [address]Xqqdzplqqiv/100 WBC (Bld)0.0 %NormalKettering Health Main CampusComment on above:Performed By: #### [id number] #### U [facility] (DEFAULT) [address] [place] [address]Stronbfzpb (Bld) [Volume fraction]41.2 %Ctafen87.9-44.3[facility] CampusComment on above:Performed By: #### [id number] #### [facility] (DEFAULT) [address] [place] [address]Kmyauobohz (Bld) [Mass/Vol]13.9 g/nQGmkxxn63.4-15.2[facility] CampusComment on above:Performed By: #### [id number] #### [facility] (DEFAULT) [address] [place] [address] 337[address]Mtgpsntd Grans %0.3 %NormalKettering Health Main CampusComment on above:Performed By: #### [id number] #### [facility] (DEFAULT) [address] [place] [address]Jjczygjt Grans Absolute0.04 K/uLNormal<=0.09[facility] CampusComment on above:Performed By: #### [id number] #### [facility] (DEFAULT) [address] [place] [address]Onowsuugfso (Bld) [#/Vol]1.01 10*3/uLLow1.16-3.51[facility] CampusComment on above:Performed By: #### [id number] #### [facility] (DEFAULT) [address] [address]Tewlomavxva/100 WBC (Bld)8.6 %[facility] SpringfieldComment on above:Performed By: #### [id number] #### [facility] (DEFAULT) [address] [place] [address] 61353WED (RBC) [Entitic vol]87.1 yDDwzvqp32.6-97.7[facility] CampusComment on above:Performed By: #### [id number] #### [facility] (DEFAULT) [address] [place] [address]Wplh Cell Hgb29.4 bdKbhqhs04.9-33.9[facility] CampusComment on above:Performed By: #### [id number] #### [facility] (DEFAULT) [address] [place] [address] 538[address]Utov Cell Hgb Conc33.7 g/nBWptbvo95.4-35.9[facility] CampusComment on above:Performed By: #### [id number] #### U [facility] (DEFAULT) [address] [place] [address] 895[address]Vxvaoqsog (Bld) [#/Vol]0.51 10*3/uLNormal0.22-0.87[facility] CampusComment on above:Performed By: #### [id number] #### U [facility] (DEFAULT) [address] [place] [address]Apnefiyjq/100 WBC (Bld)4.3 %NormalKettering Health Main CampusComment on above:Performed By: #### [id number] #### [facility] (DEFAULT) [address] [place] [address]Riqtyfvqv RBC0.0 /100 WBCNormal<=0.2[facility] CampusComment on above:Performed By: #### [id number] #### [facility] (DEFAULT) [address] [place] [address] 27[address]Kvbdhapz mean volume (Bld) [Entitic vol]10.1 fLNormal8.5-12.2 [facility] CampusComment on above:Performed By: #### [id number] #### [facility] (DEFAULT) [address] [place] [address]59Klfvkbkll (Bld) [#/Vol]282 10*3/pMSdzhqr302-410CvxvKettering Health Main CampusComment on above:Performed By: #### [id number] #### [facility] (DEFAULT) [address] [place] [address]LYO (Bld) [#/Vol]4.73 10*6/uLNormal3.91-5.04[facility] CampusComment on above:Performed By: #### [id number] #### [facility] (DEFAULT) [address] [place] [address] 173[address]SVV Dmgijpoujlxk63.4 %Yvqbap36.8-14.9K[facility] Main CampusComment on above:Performed By: #### [id number] #### [facility] (DEFAULT) [address] [place] [address] [id number] + Bands Auto86.6 %NormalKettering Health Main CampusComment on above:Performed By: #### [id number] #### [facility] (DEFAULT) [address] [place] [address] 04938Nmsd + Bands,Absolute Auto10.18 K/uLHigh1.64-7.28Kettering Health Main CampusComment on above:Performed By: #### [id number] #### [facility] (DEFAULT) [address] [place] [address] [id number] (Bld) [#/Vol]11.76 10*3/uLHigh3.99-11.19K[facility]tering Health Main CampusComment on above:Performed By: #### [id number] #### [facility] (DEFAULT) [address] [place] [address] [phone] (Bld) [#/Vol]10*3/uL0.00 - 0.15 K/uLOSCleveland Clinic Union HospitalBasophils/100 WBC (Bld)0.2 %[facility] CenterDIFF STATUS Electronic DifferentialOSU [facility] Medical CenterEosinophils (Bld) [#/Vol]10*3/uL 0.00 - 0.42 K/uLOSCleveland Clinic Union HospitalEosinophils/100 WBC (Bld)0.0 %[facility] CenterErythrocyte distribution width (RBC) [Ratio]12.4 %10.8 - 14.9 %[facility] CenterHematocrit (Bld) [Volume fraction]41.2 %34.9 - 44.3 %[facility] CenterHemoglobin (Bld) [Mass/Vol]13.9 g/dL11.4 - 15.2 g/dLUniversity Hospitals Parma Medical CenterImmature granulocytes (Bld) [#/Vol]0.04 10*3/uL <=0.09U [facility] CenterImmature granulocytes/100 WBC (Bld)0.3 %[facility] CenterInterpretation and review of laboratory resultsAbnormTriHealth Bethesda Butler HospitalLymphocytes (Bld) [#/Vol]1.01 10*3/uLLow1.16 - 3.51 K/uLU [facility] CenterLymphocytes/100 WBC (Bld)8.6 %[facility] HospitalH (RBC) [Entitic mass]29.4 pg25.9 - 33.9 pgOSUniversity Hospitals Health SystemHC (RBC) [Mass/Vol]33.7 g/dL31.4 - 35.9 g/dLUniversity Hospitals Parma Medical CenterMCV (RBC) [Entitic vol]87.1 fL79.6 - 97.7 [facility] HospitalMonocytes (Bld) [#/Vol]0.51 10*3/uL0.22 - 0.87 K/uLUniversity Hospitals Parma Medical CenterMonocytes/100 WBC (Bld)4.3 %[facility] CenterNeutrophils (Bld) [#/Vol]10.18 10*3/uLHigh1.64 - 7.28 K/uL [facility] CenterNucleated RBC/100 WBC (Bld) [Ratio]0.0 %<=0.2 /100 WBC [facility] CenterPlatelet mean volume (Bld) [Entitic vol]10.1 fL8.5 - 12.2 [facility] HospitalPlatelets (Bld) [#/Vol]282 10*3/uL150 - 393 K/uL [facility] CenterRBC (Bld) [#/Vol]4.73 10*6/uLUniversity Hospitals Par[facility] Center Segmented neutrophils/100 WBC (Bld)86.6 %[facility] CenterWBC (Bld) [#/Vol]11.76 10*3/uLHigh3.99 - 11.19 K/uLUniversity Hospitals Parma Medical CenterOSCleveland Clinic Union HospitalCHEM 6 (LYTES, BUN CREA)on 75-91-7345Binvn gap [Moles/Vol]12 mmol/LNormal7-17K[facility]tering Health Main CampusComment on above: Performed By: #### CHM6, LIPA, GLUC, HFP #### U [facility] (DEFAULT) [address] [place] [address] 28346Onqwhtjo [Moles/Vol]105 mmol/PKcfvcu83-498UqxoKettering Health Main CampusComment on above:Performed By: #### CHM6, LIPA, GLUC, HFP #### [facility] (DEFAULT) [address] [place] [address] [id number] [Moles/Vol]23 mmol/QKqdddt41-54TwpoKettering Health Main CampusComment on above:Performed By: #### CHM6, LIPA, GLUC, HFP #### U [facility] (DEFAULT) [address] [place] [address] 45617Jscspdvgqk [Mass/Vol]0.72 mg/dLNormal0.50-1.20[facility] Main CampusComment on above:Performed By: #### CHM6, LIPA, GLUC, HFP #### U [facility] (DEFAULT) [address] [place] [address] [id number] GFR, >=60Normal>=60K[facility] Health Main CampusComment on above:Performed By: #### CHM6, LIPA, GLUC, HFP #### [facility] (DEFAULT) [address] [place] [address] 14027TNZ GFR,Non >=60Normal>=60K[facility] Health Main CampusComment on above:Performed By: #### CHM6, LIPA, GLUC, HFP #### U [facility] (DEFAULT) [address] [place] [address] 03907Hklvvezal [Moles/Vol]4.3 mmol/LNormal3.5-5.0K[facility] Main CampusComment on above:Performed By: #### CHM6, LIPA, GLUC, HFP #### [facility] (DEFAULT) [address] [place], [place] [address]Nweitm [Moles/Vol]136 mmol/KPubvrn210-713FglaKettering Health Main CampusComment on above:Performed By: #### CHM6, LIPA, GLUC, HFP #### U [facility] (DEFAULT) [address] [place] [address] 92897Pxul nitrogen [Mass/Vol]12 mg/dLNormal7-22K[facility] Main CampusComment on above:Performed By: #### CHM6, LIPA, GLUC, HFP #### [facility] (DEFAULT) [address] [place] [address] 63532Yrua nitrogen/Creatinine [Mass ratio]17 mg/mgSsm Health CarealOCommunity Regional Medical CenterComment on above:Performed By: #### CHM6, LIPA, GLUC, HFP #### U [facility] (DEFAULT) [address] [place] [address] 62832Ffrnt gap [Moles/Vol]12 mmol/L7 - 17 mmol/[facility] CampusChloride [Moles/Vol]105 mmol/L98 - 108 mmol/[facility] CampusCO2 [Moles/Vol]23 mmol/L22 - 30 mmol/[facility] CampusCreatinine [Mass/Vol] 0.72 mg/dL0.50 - 1.20 mg/dLUniversity Hospitals Parma Medical CenterPotassium [Moles/Vol]4.3 mmol/L3.5 - 5.0 mmol/[facility] Centerodium [Moles/Vol]136 mmol/L133 - 143 mmol/[facility] CampusUrea nitrogen [Mass/Vol]12 mg/dL7 - 22 mg/dL [facility] CenterUrea nitrogen/Creatinine [Mass ratio]17 mg/mgUniversity Hospitals Parma Medical CenterCHLAMYDIA & GONORRHEA AMPLIFIED PROBEon 78-65-7833Fnidqiyxx trachomatis Amplified ProbeNot detectedNormalNot Detected, IndeterminateKettering Health Main CampusComment on above:Order Comment: This test was performed using a real time PCR assay.Performed By: #### GCSCRN #### [facility] (DEFAULT) [address] [place] [address] 16675Uzusrtlht gonorrhea Amplified ProbeNot detectedNormalNot DetectedKettering Health Main CampusComment on above:Order Comment: This test was performed using a real time PCR assay.Performed By: #### GCSCRN #### U [facility] (DEFAULT) [address] [place], [place] [address]XAURMFTal 20-38-1236Pxtezbo [Mass/Vol]119 mg/iCYgdj19-46VvemKettering Health Main CampusComment on above:Performed By: #### CHM6, LIPA, GLUC, HFP #### U [facility] (DEFAULT) [address] [place] [address] 02071Rtsiufd [Mass/Vol]119 mg/xCHoop04 - 99 mg/dLUniversity Hospitals Parma Medical CenterHCG ( test) Qlon 52-59-8899YMU.beta subunit [Moles/Vol]mmol/L mIU/mLUniversity Hospitals Parma Medical CenterComment on above:Non-: <10 mIU/mL Postmenopause: <10 mIU/mL Male: <10 mIU/mL FEMALE GESTATIONAL AGE 2-4 Weeks: 39.1-8,388 mIU/mL 5-6 Weeks: 861-88,769 mIU/mL 6-8 Weeks: 8,636-218,085 mIU/mL 8-10 Weeks: 18,700-244,467 mIU/mL 10-12 Weeks: 23,143-181,899 mIU/mL 13-27 Weeks: 6,303-97,171 mIU/mL 24-40 Weeks: 4,360-74,883 mIU/mL Test results cannot be interpreted as absolute evidence for the presence or absence of malignant disease. [facility] CenterHEPATIC FUNCTION PANELon 51-85-1984Iuqoowf [Mass/Vol] 4.8 g/dLNormal3.5-5.0K[facility] Main CampusComment on above:Performed By: #### CHM6, LIPA, GLUC, HFP #### [facility] (DEFAULT) [address] [place] [address], [place] [address]HST [Catalytic activity/Vol]38 U/KEizprl78-943VwovKettering Health Main CampusComment on above:Performed By: #### CHM6, LIPA, GLUC, HFP #### U [facility] (DEFAULT) [address] [place] [address], [place] [address]XBE [Catalytic activity/Vol]9 U/LNormal9-48[facility] CampusComment on above:Performed By: #### CHM6, LIPA, GLUC, HFP #### U [facility] (DEFAULT) [address] [place] [address] [phone] [Catalytic activity/Vol]12 U/POrg24-44OihkKettering Health Main CampusComment on above:Performed By: #### CHM6, LIPA, GLUC, HFP #### [facility] (DEFAULT) [address] [place] [address] 23261Bkwiyppyw [Mass/Vol]0.4 mg/dLNormal<1.5[facility] Main CampusComment on above:Performed By: #### CHM6, LIPA, GLUC, HFP #### U [facility] (DEFAULT) [address] [place] [address] 45926Kevsufrmy.indirect [Mass/Vol]0.1 mg/dLNormal<0.3[facility] CampusComment on above:Performed By: #### CHM6, LIPA, GLUC, HFP #### U [facility] (DEFAULT) [address] [place] [address], [place] [address]Pjuptfn [Mass/Vol]7.6 g/dLNormal6.4-8.3[facility] CampusComment on above:Performed By: #### CHM6, LIPA, GLUC, HFP #### U [facility] (DEFAULT) [address] [place] [address], [place] [address]Bocqpnk [Mass/Vol]4.8 g/dL3.5 - 5.0 g/dLOSU [facility] CenterALP [Catalytic activity/Vol]38 U/L32 - 126 U/[facility]ENTERU [facility] CenterALT [Catalytic activity/Vol]9 U/L9 - 48 U/[facility]ENTERU [facility] CenterAST [Catalytic activity/Vol]12 U/LLow14 - 40 U/[facility] CENTERU [facility] CenterBilirubin [Mass/Vol] 0.4 mg/dL<1.5OSU [facility] CenterBilirubin.direct [Mass/Vol]0.1 mg/dL<0.3 OSCleveland Clinic Union HospitalProtein [Mass/Vol]7.6 g/dL6.4 - 8.3 g/dLOSU [facility] CenterLIPASEon 02-13-0699Mgwiou [Catalytic activity/Vol]9 U/AYfp01-86 [facility] CampusComment on above:Performed By: #### CHM6, LIPA, GLUC, HFP #### [facility] (DEFAULT) [address] [address]Ntmoud [Catalytic activity/Vol]9 U/LLow11 - 82 U/[facility] CampusLaboratory - Chemistry and Chemistry - challengeon 12-29-2020 GFR/1.73 sq M.predicted MDRD (S/P/Bld) [Vol rate/Area]mL/min/{1.73_m2}>=60 mL/min/1.73sqMOClermont County HospitalLaboratory - Microbiology and Antimicrobial susceptibilityOrdered By: Nabele Littlejohn on 89-50-2183Azmnhdmae vaginosis and vaginitis DNA panel Probe+sig amp (Vag fld)NegativeNegativeUniversity Hospitals Parma Medical CenterNo Panel Informationon 80-25-0601Szeioquaxtmzxl and review of laboratory resultsAbnoAshtabula County Medical CenterOSCleveland Clinic Union Hospital URINE DIPSTICK; REFLEX MICROSCOPY; REFLEX CULTURE PERFORMABLEon 12-29-2020 Appearance (U)ClearClearOClermont County HospitalColor (U)YellowYellowOSCleveland Clinic Union HospitalGlucose Test strip (U) [Mass/Vol]NegativeNegativeOSU [facility] CenterInterpretation and review of laboratory resultsAbnoAshtabula County Medical CenterKetones (U) [Mass/Vol]15 mg/dL = SmallAbnormalNegativeOSCleveland Clinic Union HospitalLeukocyte esterase Test strip Ql (U)NegativeNegativeUniversity Hospitals Parma Medical CenterNitrite Ql (U)NegativeNegativeUniversity Hospitals Parma Medical CenterpH (U)5.0 [pH]5.0 - 7.0OS[facility] CenterProtein (U) [Mass/Vol]TraceAbnormal NegativeOSCleveland Clinic Union HospitalRBC (U) [#/Vol]NegativeNegativeOSTrinity Health System West Campuspecific gravity (U) [Rel density]>=1.030OSCleveland Clinic Union Hospital Urobilinogen (U) [Mass/Vol]0.2 E.U./dL0.2 - 1.0OSLourdes Medical Center of Burlington CountyVAGINITIS DNA PROBESon 80-76-2022GPN Probe Rocio Species NegativeNormCrystal Clinic Orthopedic CenterComment on above:Order Comment: Vaginitis probe ambient temperature transport system (white swab). Vaginal collection only.Performed By: #### TGCM #### [facility] (DEFAULT) [address] [address]ACR Probe GardnerellaNegativeNocarteret health careNegMercy Health Perrysburg HospitalComment on above:Order Comment: Vaginitis probe ambient temperature transport system (white swab). Vaginal collection only.Performed By: #### TGCM #### [facility] (DEFAULT) [address] [address]QCS Probe TrichomonasNegativeNocarteret health careNegMercy Health Perrysburg HospitalComment on above:Order Comment: Vaginitis probe ambient temperature transport system (white swab). Vaginal collection only.Performed By: #### TGCM #### [facility] (DEFAULT) [address] [address]FYHXNNOFL DNA PROBESOrdered By: Nabeel Littlejohn on 12-29-2020 Interpretation and review of laboratory resultsNormalOSummit Oaks HospitalURINALYSISon 66-64-2779Swhitfwi Auto Ql (U)FewAbnormal None Seen /hpfOhioHealthBilirubin Ql (U)NegativeNegativeOhioHealthCalcium oxalate crystals Computer assisted (U) [#/Area]RareAbnormalNone Seen /hpf OhioHealthClarity Refractometry automated (U)HazyAbnormalClearOhioHealthColor (U)YellowColorless, YellowOhioHealthEpithelial cells.squamous Auto (Urine sed) [#/Area]5HighOhioHealthGlucose Auto test strip (U) [Mass/Vol]NegativeNegative mg/dLOhioHealthHemoglobin Auto test strip Ql (U)NegativeNegativeOhioHealth Interpretation and review of laboratory resultsAbnormalOhioHealthKetones (U) [Mass/Vol]20AbnormalNegative mg/dLOhioHealthLeukocyte esterase Auto test strip Ql (U)NegativeNegativeOhioHealthMucus Auto (Urine sed) [#/Area]FewAbnormalNone Seen, Rare /lpfOhioHealthNitrite Auto test strip Ql (U)NegativeNegative OhioHealthpH (U)5.0 [pH]OhioHealthProtein (U) [Mass/Vol]NegativeNegative mg/dL OhioHealthRBC Auto (Urine sed) [#/Area]2OhioHealthSpecific gravity (U) [Rel density]1.038HighOhioHealthUrobilinogen (U) [Mass/Vol]<2.0<2.0 mg/dLOhioHealth WBC Auto (Urine sed) [#/Area]1OhioHealthMicroscopic examination is performed on all urinalysis samples and only positive findings are reported. The test for blood on the chemical analytic portion of urinalysis may also be positive due to hemoglobinuria and myoglobinuria and if red blood cells are present they are quantified by microscopic examination.[facility] HospitalCBC WITH AUTO DIFFERENTIALon 47-04-3262Nzbxuemzs (Bld) [#/Vol]0.04 10*3/uLOhioHealthBasophils/100 WBC (Bld) 0.3 %OhioHealthEosinophils (Bld) [#/Vol]0.01 10*3/uLOhioHealthEosinophils/100 WBC (Bld)0.1 %[facility] HospitalErythrocyte distribution width (RBC) [Entitic vol]12.9 % 11.6 - 14.8 %OhioHealthHematocrit (Bld) [Volume fraction]46.0 %36 - 46 % OhioHealthHemoglobin (Bld) [Mass/Vol]14.9 g/dL12 - 16 g/dLOhioHealthImmature granulocytes (Bld) [#/Vol]0.02 10*3/uLOhioHealthImmature granulocytes/100 WBC (Bld)0.20 %OhioHealthComment on above:The IG parameter is the percentage of metamyelocytes, myelocytes and promyelocytes. An immature granulocyte count (IG) of 1% or more suggests the possibility of infection, an IG count of 3% is very likely related to an infection.Interpretation and review of laboratory results AbnormalOhioHealthLymphocytes (Bld) [#/Vol]2.25 10*3/uLOhioHealthLymphocytes/100 WBC (Bld)18.6 %OhioHealthMCH (RBC) [Entitic mass]28.9 pg26 - 34 pgOhioHealth MCHC (RBC) [Mass/Vol]32.4 g/dL31 - 37 g/dLOhioHealthMCV (RBC) [Entitic vol]89.1 fL80 - 100 fLOhioHealthMonocytes (Bld) [#/Vol]0.65 10*3/uLOhioHealth Monocytes/100 WBC (Bld)5.4 %OhioHealthNeutrophils (Bld) [#/Vol]9.14 10*3/uLHigh OhioHealthNeutrophils/100 WBC (Bld)75.4 %OhioHealthNucleated RBC (Bld) [#/Vol] 0.00 10*3/uLOhioHealthNucleated RBC/100 WBC (Bld) [Ratio]0.0 %OhioHealthPlatelet mean volume (Bld) [Entitic vol]9.4 fL9.4 - 12.4 fLOhioHealthPlatelets (Bld) [#/Vol]368 10*3/uLOhioHealthRBC (Bld) [#/Vol]5.16 10*6/uLOhioHealthWBC (Bld) [#/Vol]12.11 10*3/uLHighOhioHealthChem 754-04-7045Coqos gap [Moles/Vol]17 mmol/L10 - 20 mmol/LOhioHealthChloride [Moles/Vol]102 mmol/L98 - 108 mmol/L OhioHealthCreatinine [Mass/Vol]0.61 mg/dL0.40 - 1.10OhioHealthGFR/1.73 sq M predicted among non-blacks MDRD (S/P/Bld) [Vol rate/Area]The eGFR should be used for monitoring renal function only and not for medication dosing.[facility] GFR/1.73 sq M.predicted CKD-EPI (S/P/Bld) [Vol rate/Area]130>=60 mL/min/1.73 m2 OhioHealthGlucose [Mass/Vol]108 mg/wYJrxw82 - 99 mg/dLOhioHealthHCO3 [Moles/Vol] 24 mmol/L21 - 32 mmol/LOhioHealthInterpretation and review of laboratory results AbnormalOhioHealthPotassium [Moles/Vol]4.3 mmol/L3.5 - 5.1 mmol/LOhioHealth Sodium [Moles/Vol]139 mmol/L135 - 145 mmol/LOhioHealthUrea nitrogen [Mass/Vol]10 mg/dL8 - 25 mg/dLOhioHealthUrea nitrogen/Creatinine [Mass ratio]16.4 mg/mg OhioHealthOtheron 39-59-2495Btjbt TubeHold for add-ons.[facility] HospitalComment on above:Auto resulted.URINALYSISon 91-46-6814Tsugngmz Auto Ql (U)RareAbnormalNone Seen /hpfOhioHealthBilirubin Ql (U)NegativeNegativeOhioHealthClarity Refractometry automated (U)HazyAbnormalClearOhioHealthColor (U)YellowColorless, YellowOhioHealthEpithelial cells.squamous Auto (Urine sed) [#/Area]14High OhioHealthGlucose Auto test strip (U) [Mass/Vol]NegativeNegative mg/dLOhioHealth Hemoglobin Auto test strip Ql (U)NegativeNegativeOhioHealthInterpretation and review of laboratory resultsAbnormalOhioHealthKetones (U) [Mass/Vol]Negative Negative mg/dLOhioHealthLeukocyte esterase Auto test strip Ql (U)TraceAbnormal NegativeOhioHealthMucus Auto (Urine sed) [#/Area]ManyAbnormalNone Seen, Rare /lpfOhioHealthNitrite Auto test strip Ql (U)NegativeNegativeOhioHealthpH (U)6.0 [pH]OhioHealthProtein (U) [Mass/Vol]NegativeNegative mg/dLOhioHealthRBC Auto (Urine sed) [#/Area]2OhioHealthSpecific gravity (U) [Rel density]1.032High OhioHealthTransitional cells Computer assisted (U) [#/Area]<1[facility] Urobilinogen (U) [Mass/Vol]<2.0<2.0 mg/dLOhioHealthWBC Auto (Urine sed) [#/Area] 3OhioHealthMicroscopic examination is performed on all urinalysis samples and only positive findings are reported. The test for blood on the chemical analytic portion of urinalysis may also be positive due to hemoglobinuria and myoglobinuria and if red blood cells are present they are quantified by microscopic examination.OhioHealthUrine Pregnancyon 69-63-0075SLT ( test) Ql (U)NegativeNegativeOhioHealthInterpretation and review of laboratory resultsNormalOhioHealthLACTOFERRIN FECAL QUANTon 33-95-9527Drivwwmtbkd, Fecal, Quant.60.80 ug/mL(g)Critically high0.00-7.24The [facility] HospitalComment on above:Result Comment: Results verified by repeat testing . Baseline (normal) [...] from those with non-inflammatory irritable bowel syndrome (IBS).Performed By: #### LACTFQ #### [facility] [address] [place] [address] Sherwin KarenCLOSTRIDIUM DIFFICILE PCRon 05-23-2018C difficile Toxin Gene AJAY NegativeNormalNegativeThe [facility]riners HospitalComment on above:Performed By: #### CDIFNAA #### [facility] [address] [place] [address] Sherwin KarenCBC AUTO DIFFon 02-44-8326Fadyqhkfx #/vol (Bld)0.0 103/ulNormal 0.0-0.1The [facility] HospitalComment on above:Performed By: #### CBC #### [facility] [address] [address] Sherwin KarenBasophils/100 WBC (Bld)0.9 %Normal0.2-2.0[facility] Comment on above:Performed By: #### CBC #### [facility] [address] [address] Sherwin KarenEosinophils #/vol (Bld)0.0 103/ulNormal0.0-0.7The [facility] Comment on above:Performed By: #### CBC #### [facility] [address] [place] [address] Sherwin KarenEosinophils/100 WBC (Bld)1.2 %Normal0.9-7.0[facility] Comment on above:Performed By: #### CBC #### [facility] [address] [place] [address] Sherwin KarenErythrocyte distribution width Ratio (RBC)13.3 %Hyxvtm64.0-15.0The [facility] HospitalComment on above:Performed By: #### CBC #### [facility] [address] [place] [address] Sherwin KarenHematocrit Volume Fraction (Bld)38.9 %Orxnky25.0-48.0The [facility] HospitalComment on above:Performed By: #### CBC #### [facility] [address] [place] [address] Sherwin KarenHemoglobin mass conc (Bld)12.3 g/cOPfkzua75.0-16.0The [facility] HospitalComment on above:Performed By: #### CBC #### [facility] [address] [place] [address] Sherwin KarenIG #0.01 10e3/ulNormal0.00-0.03The [facility] HospitalComment on above:Performed By: #### CBC #### [facility] [address] [address] Sherwin KarenIG %0.3 %Normal0.0-0.5ThAshtabula County Medical CenterComment on above: Performed By: #### CBC #### [facility] [address] [place] [address] Sherwin GoelenLymphocytes #/vol (Bld)1.2 103/ulNormal1.2-3.8ThAshtabula County Medical Center Comment on above:Performed By: #### CBC #### [facility] [address] [place] [address] Sherwin KarenLymphocytes/100 WBC (Bld)37.5 %Nfhclu24.5-60.0[facility] Comment on above:Performed By: #### CBC #### [facility] [address] [place] [address] Sherwin KarenMANUAL DIFF REQNONormalThe [facility]ers HospitalComment on above: Performed By: #### CBC #### [facility] [address] [place] [address] Sherwin KarenH Entitic mass (RBC)25.8 pgCritically low26.7-34.0[facility] HospitalComment on above:Performed By: #### CBC #### [facility] [address] [place] [address] Sherwin KarenHC mass conc (RBC)31.6 g/mOYaibst24.9-35.2[facility] Comment on above:Performed By: #### CBC #### [facility] [address] [place] [address] Sherwin KarenMCV Entitic volume (RBC)81.7 hLBfwthi35.0-99.0[facility] Comment on above:Performed By: #### CBC #### [facility] [address] [place] [address] Sherwin KarenMonocytes #/vol (Bld)0.4 103/ulNormal0.3-0.8ThAshtabula County Medical Center Comment on above:Performed By: #### CBC #### [facility] [address] [id number] Sherwin KarenMonocytes/100 WBC (Bld)12.4 %Critically high1.7-12.0[facility] HospitalComment on above:Performed By: #### CBC #### [facility] [address] [place] [address] Sherwin KarenNeutrophils #/vol (Bld)1.5 103/ulNormal1.4-6.5ThAshtabula County Medical Center Comment on above:Performed By: #### CBC #### [facility] [address] [place] [address] Sherwin KarenNeutrophils/100 WBC (Bld)47.7 %Vnpvrj54.0-75.0[facility] Comment on above:Performed By: #### CBC #### [facility] [address] [place] [address] Sherwin KarenPlatelet mean volume Entitic volume (Bld)9.6 fLNormal9.5-13.5ThAshtabula County Medical CenterComment on above:Performed By: #### CBC #### [facility] [address] [place] [address] Sherwin KarenPlatelets #/vol (Bld)270 103/hxCbeyfl402-459Hsb [facility] Comment on above:Performed By: #### CBC #### [facility] [address] [place] [address] Sherwin KarenRBC #/vol (Bld)4.76 106/ulNormal4.20-5.40The [facility] Comment on above:Performed By: #### CBC #### [facility] [address] [place] [address] Sherwin KarenWBC #/vol (Bld)3.2 103/ulCritically low4.0-11.0[facility] Comment on above:Performed By: #### CBC #### [facility] [address] [place] [address] Sherwin KarenCULTURE STOOLon [id number] STOOLCulture Observations: NO GROWTH OF SALMONELLA, SHIGELLA, YERSINIA, CAMPYYLOBACTER, STAPHYLOCOCCUS, Culture Observations: OR E. COLI 0157 AT 72 HOURS.NormalOhiohealth Nelsonville Health Center HospitalComment on above: Performed By: #### STOOLCX #### [facility] [address] [place] [address] Sherwin KarenER URINE PROFILEon 26-37-2545Fdxvbepae mass concMODERATENormal NEGATIVEOhiohealth Nelsonville Health Center HospitalComment on above:Performed By: #### CHAN UMICRO #### [facility] [address] [place] [address] Sherwin KarenBLOODNegativeNormalNEGATIVEPomerene HospitalComment on above: Performed By: #### CHAN UMICRO #### [facility] [address] [place] [address] Sherwin KarenClarity Nom (U)CLEARNormalThe [facility] HospitalComment on above: Performed By: #### CHAN UMICRO #### [facility] [address] [place] [address] Sherwin KarenColor Nom (U)YELLOWNormalYELLOWPomerene HospitalComment on above:Performed By: #### CHAN UMICRO #### [facility] [address] [place] [address] Sherwin KarenERUAHDA micrscopic examination will be performed if indicated.Normal Pomerene HospitalComment on above:Performed By: #### CHAN UMICRO #### [facility] [address] [place] [address] Sherwin KarenGlucose mass concNegativeNormalNEGATIVEOhiohealth Nelsonville Health Center HospitalComment on above:Performed By: #### CHAN UMICRO #### [facility] [address] [place] [address] Sherwin KarenKetones Ql (U)15 mg/dlNormalNEGATIVEPomerene HospitalComment on above:Performed By: #### CHAN UMICRO #### [facility] [address] [place] [address] Sherwin KarenNitrite Ql (U)NegativeNormalNEGATIVEOhiohealth Nelsonville Health Center HospitalComment on above:Performed By: #### GEORGIA GILES #### [facility] [address] [place] [address] Sherwin KarenpH (Bld)5.2Akkvxn8-6Mtz [facility] HospitalComment on above:Performed By: #### GEORGIA GILES #### [facility] [address] [place] [address] Sherwin KarenProtein mass conc (U)30 mg/dLNoUK HealthcareComment on above:Performed By: #### GEORGIA GILES #### [facility] [address] [place] [address] Sherwin KarenSPEC GRAVITY>=1.170Viwxxm4.005-<=1.025The [facility] HospitalComment on above:Performed By: #### GEORGIA GILES #### [facility] [address] [place] [address] Sherwin KarenUR MICRO INDINDICATEDNoUK HealthcareComment on above: Performed By: #### GEORGIA GILES #### [facility] [address] [place] [address] Sherwin KarenUrobilinogen Qn (U)1.0 EU/dlNoUK HealthcareComment on above:Performed By: #### GEORGIA GILES #### [facility] [address] [place] [address] Sherwin KarenWBC #/vol (Bld)NegativeNormalNEGATIVEThe [facility] HospitalComment on above:Performed By: #### BEVERLY GILESRO #### [facility] [address] [place] [address] Sherwin KarenPROF 14(COMP METB)on 05-38-5030Ogekhww mass conc3.7 g/dLNormal 3.5-5.0The [facility] HospitalComment on above:Performed By: #### CMP #### [facility] [address] [place] [address] Sherwin KarenAlbumin/Globulin mass ratio1.0 {ratio}NormalThe [facility] Comment on above:Performed By: #### CMP #### [facility] [address] [address] Sherwin KarenALP enzyme act/vol53 U/WTbdaef82-523Nuz [facility] HospitalComment on above:Performed By: #### CMP #### [facility] [address] [address] Sherwin KarenALT enzyme act/vol20 U/LNormal9-52The [facility] HospitalComment on above:Performed By: #### CMP #### [facility] [address] [address] Sherwin KarenAnion gap molar conc16.1 mmol/LNormalThe [facility] HospitalComment on above:Performed By: #### CMP #### [facility] [address] [address] Sherwin KarenAST enzyme act/vol19 U/SMvaqes80-09Rnw [facility] HospitalComment on above:Performed By: #### CMP #### [facility] [address] [place] [address] Sherwin KarenBilirubin Ql (U)0.2 mg/dLNormal0.2-1.3The [facility] HospitalComment on above:Performed By: #### CMP #### [facility] [address] [place] [address] Sherwin KarenCalcium mass conc9.4 mg/dLNormal8.4-10.2The [facility] HospitalComment on above:Performed By: #### CMP #### [facility] [address] [place] [address] Sherwin KarenChloride molar yhlj068 mmol/QJvvcut94-548Dmn [facility] Comment on above:Performed By: #### CMP #### [facility] [address] [place] [address] Sherwin KarenCO2 molar conc23.5 mmol/ATcdazv94.0-30.0The [facility] HospitalComment on above:Performed By: #### CMP #### [facility] [address] [place] [address] Sherwin KarenCreatinine mass conc0.88 mg/dLNormal0.52-1.04[facility] Comment on above:Performed By: #### CMP #### [facility] [address] [address] Sherwin KarenEGFR-AF VINCENTIAN>60Normal>=60The [facility] HospitalComment on above: Performed By: #### CMP #### [facility] [address] [address] Sherwin KarenEGFR-NON AF VINCENTIAN>60Normal>=60The [facility] HospitalComment on above:Performed By: #### CMP #### [facility] [address] [place] [address] Sherwin KarenGlobulin mass conc (S)3.7 g/dLNormalThe [facility] HospitalComment on above:Performed By: #### CMP #### [facility] [address] [place] [address] Sherwin KarenGlucose mass conc98 mg/uPAmkgfn48-886Vsr [facility] HospitalComment on above:Performed By: #### CMP #### [facility] [address] [place] [address] Sherwin KarenPotassium molar conc3.6 mmol/LNormal3.4-5.0[facility] Comment on above:Performed By: #### CMP #### [facility] [address] [place] [address] Sherwin KarenProtein mass conc7.4 g/dLNormal6.1-8.2The [facility] HospitalComment on above:Performed By: #### CMP #### [facility] [address] [place] [address] Sherwin KarenSodium molar ldyv186 mmol/VNefmsa528-660Kpj [facility] HospitalComment on above:Performed By: #### CMP #### [facility] [address] [place] [address] Sherwin KarenUrea nitrogen mass conc10.0 mg/dLNormal6.4-19.3The [facility] Comment on above:Performed By: #### CMP #### [facility] [address] [place] [address] Sherwin KarenUrea nitrogen/Creatinine mass ratio11.4 mg/mgNoUK HealthcareComment on above:Performed By: #### CMP #### [facility] [address] [place] [address] Sherwin KarenURINE MICROSCOPIC ONLYon 37-52-4774Avmgkhtr LM.HPF #/area (Urine sed)TRACENormalNONE SEENPomerene HospitalComment on above:Performed By: #### GEORGIA GILES #### [facility] [address] [place] [address] Sherwin KarenCASTNONE SEENSheridan LakeNONE SEENPomerene HospitalComment on above: Performed By: #### GEORGIA GILES #### [facility] [address] [place] [address] Sherwin KarenCrystals LM Nom (Urine sed)SEENNormalNONE SEENPomerene Hospital Comment on above:Performed By: #### GEORGIA GILES #### [facility] [address] [place] [address] Sherwin KarenCULTURENOT INDICATEDDayton Children's HospitalComment on above: Performed By: #### GEORGIA GILES #### [facility] [address] [place] [address] Sherwin KarenEpithelial cells LM.HPF #/area (Urine sed)FEWDayton Children's HospitalComment on above:Performed By: #### BEVERLY GILESRO #### [facility] [address] [place] [address] Sherwin KarenMUCOUSSMALLNormalNONE SEENPomerene HospitalComment on above: Performed By: #### GEORGIA GILES #### [facility] [address] [place] [address] Sherwin KarenRBC #/vol (U)NONE SEENNormal0-2Pomerene HospitalComment on above:Performed By: #### BEVERLY GILESRO #### [facility] [address] [place] [address] Sherwin KarenWBC #/vol (Bld)NONE SEENNormalNONE SEENPomerene HospitalComment on above:Performed By: #### GEORGIA GILES #### [facility] [address] [place] [address] Sherwin Rubio PULMONARY ARTERIESon 16-01-7790RZ PULMONARY ARTERIES EXAMINATION:CT PULMONARY ARTERIESHISTORY:ORDERING SYSTEM PROVIDED HISTORY: sob, TECHNOLOGIST PROVIDED HISTORY: Reason for exam: sobIllness/OtherEncounter Type: InitialAdditional signs and symptoms: sobORDERING SYSTEM PROVIDED DIAGNOSIS CODES:COMPARISON:None.TECHNIQUE:CT angiography of the pulmonaryarteries following the administration of intravenous contrast. Coronal and sagittal MIP images wereperformed.Dose reduction techniques were achieved by using automated exposure control and/or adjustment of mA and/or kV according to patient size and/or use of iterative reconstruction technique.CONTRAST:IOPAMIDOL 76 % INTRAVENOUS SOLUTION - 75 mL,FINDINGS:The [...] 2.6 mm nodule in the left lower lobe.PD/labWorkstation ID: [id number] by: KULDEEP CHANG on WedMay 02, 2018 4:56:34 PM ESTTranscribed by: CJ PIMENTEL on 2017 5:06:59 PM ESTFinalized by: KULDEEP CHANG on WedMay 02, 2018 10:15:51 PM [facility] HospitalComment on above:Order Comment: Reason for exam?:sobInjury/Trauma or Illness?:Illness/OtherHow long have you had these symptoms (acute/chronic)?:AcuteType of Exam?:InitialAdditional signs and symptoms?:sobXR CHEST PA/APon 36-30-5951RJ CHEST PA/APEXAMINATION:XR CHEST PA/APHISTORY:F, 17 y/o , sobCOMPARISON:08/12/2006 reportTECHNIQUE:An AP view of the chest is performed.FINDINGS:Cardiac monitoring leads overlie the chest.The lungs are symmetrically inflated and clear. No pleural abnormality.Heart size is normal. Normal mediastinum and holly. Normal pulmonary arteries. Normal aorta. There is minimal dextrocurvature of the thoracic spine, which may be positional, or true. Normal ribs and shoulders. The visualized upper abdomen is unremarkable.IMPRESSION:No acute process in the chest.Workstation ID: [id number] by: HIMANSHU DE JESUS on WedMay 02, 2018 4:33:43 PM ESTTranscribed by: HIMANSHU DE JESUS on WedMay 02, 2018 4:33:43 PM ESTF inalized by: HIMANSHU DE JESUS on WedMay 02, 2018 4:33:43 PM [facility] HospitalComment on above:Order Comment: Reason for exam?:c/o sob today, no hxInjury/Trauma or Illness?:Illness/OtherHow longhave you had these symptoms (acute/chronic)?:AcuteHistory of cancer?:nSurgeries, chemotherapy, or ra diation?:nType of Exam?:InitialAdditional signs and symptoms?:n Vital Signs Date TimeVital SignValuePerforming JujdnlildKmvtucug19-98-3043 14:29-0400Body buwjbd455.6 [facility]08-13-2025 14:29-0400Body mass index (BMI) [Ratio]18.71 kg/m2[facility]08-13-2025 14:29-0400Body ezdqut24.[address] [facility]08-13-2025 14:29-0400Diastolic blood fniycnyw13 mm[Hg][facility] 01-17-2025 14:29-0400Systolic blood qwgbgawf47 mm[Hg][facility]09-14-2023 15:30-0400Body .19 Binh Palencia Other [place] [employer] Other 09-14-2023 15:30-0400Body mass index (BMI) [Ratio] 15.77 kg/o0BqoynPaulette Palencia Other [facility] Other 09-14-2023 15:30-0400Body xhvpizpzexb01 [degF][facility] [employer] Other 09-14-2023 15:30-0400Body kgAmbandres Palencia Other [employer] Other 09-14-2023 15:30-0400Diastolic blood mdzzgaqk08 mm[Hg] Paulette [facility]encia [facility] [employer] Other 09-14-2023 15:30-0400Respiratory rate18 /minAmbandres Palencia Other [facility] Other 09-14-2023 15:30-1228UdW0% (BldA) [Mass fraction]98 % Paulette Palencia [facility] [employer] Other 09-14-2023 15:30-0400Systolic blood ulunmuzg986 mm[Hg] Paulette Palencia Other [facility] [employer] Other 07-25-2021 23:45-0400Diastolic blood aweimqjf97 mm[Hg] Ac Arvizu MD Work Phone: osu [facility]07-25-2021 23:45-0400Heart rate91 /minAc Arvizu MD Work Phone: os[facility]07-25-2021 23:45-0400 Respiratory rate16 /minAc Arvizu MD Work Phone: [phone]07-25-2021 23:45-4125RfN3% (BldA) [Mass fraction]100 %Ac Arvizu MD Work Phone: [phone] [place], [place] [address]707-25-2021 23:45-0400Systolic blood dloijcdi751 mm[Hg]Ac Arvizu MD Work Phone: [phone] [place], [place] 1900707-25-2021 17:13-0400Body cmCleydi Arvizu MD Work Phone: [phone] [place], [place] 1900707-25-2021 17:12-0400Body vfscuwvqrxv50.01 [degF]Ac Arvizu MD Work Phone: [phone] [place], [place] 1900711-07-2020 04:43-0500BP Qgpkkchvq53 mm[Hg][facility] SystemGucacySaiqWspqmy78-42-9863 04:43-0500BP Ayjjnoms868 mm[Hg][facility] SystemIuaqnmTgsqCdbcpb43-38-5586 04:43-0500Pulse (Heart Rate)99 /minHenderson Hospital – [facility] of the [facility] Health SystemIzylpgObdhOzbviw10-21-3857 04:43-0500Pulse Ucgoyxhr150 %[facility] 04-12-2020 20:02-0500BMI (Body Mass Index)37.12 kg/g6LlqqmHenderson Hospital [facility] the [facility] 04-12-2020 20:02-0500Body Bubuyfcetlc60.01 [degF][facility] 04-12-2020 20:02-0500Body gplfec202.33 kgHenderson Hospital – [facility] the [facility] SystemJrhxyjRnfuFrmgeo40-84-4527 20:02-1192Mufwme899.6 cmHenderson Hospital – [facility] the [facility] Health SystemLbhbjmGaooUpwkkq92-61-2820 20:02-0500Respiratory Rate18 /roxiHenderson Hospital [facility] the [facility] Encounters Encounter DateEncounter TypeCare ProviderFacilityStart: 03-20-2025 End: 92-94-6737vtnsqolbegJpupgoel Talal SarminiFacility:FTMCStart: 02-23-2025 End: 42-56-0823fdjnslfpblVzlhsteh Talal SarminiFacility:Felix DHStart: 02-23-2025 End: 62-72-5280Eangvpl encounter procedureMuyuniel Salazari [phone]-SvllgC[facility] Start: 02-02-2025 End: 68-50-4954mcgrzinkxmEMORTQRLW Yennifer SANTOSPAINLancaster Municipal Hospital HospitalStart: 01-17-2025 End: 42-93-9970Hlmpst outpatient new 30 minutesPwsc Ob MidwifeProMedica Women's Services - CyldeComment on above:Adnexal cyst (Primary Dx)Start: 01-17-2025 End: 82-73-5826eteeiakynfMVZNBBNebraska Orthopaedic Hospital Ambulatory PPGStart: 17-88-6659vvvplvzpgpKskaeorr SarminiFacility:[facility]Northern [facility] DHStart: 12-15-2024 ambulatoryS[facility]ide [facility] HospitalStart: 09-21-2023 End: 87-30-3328pkublcxsbyHJJPTJC Demarco COXONopauly AvailableStart: 02-18-2023 End: 61-18-6305fckifnmzchNmysj Keller Other [place] [employer] Other Start: 86-66-1531Zuranp outpatient new 30 minutesPaulette AndersonG Urgent Care ClydeStart: 12-29-2020 End: 55-10-0890Rwlczuysh department patient visitBRISEIDA HINDS [facility]: 12-29-2020 End: 97-97-7623Binvndozs department patient visitAc Arvizu MD Work Phone: [facility] Clinical Decision UnitStart: 04-12-2020 End: 41-76-1080Eoiwkxkur department patient visitVANCE ADSMount St. Mary Hospitaltart: 04-12-2020 End: 34-61-5712Fsuootlri department patient visitVance Das Work Phone: [facility] Comment on above:Abdominal pain, unspecified abdominal location (Primary Dx); Acute bilateral low back pain without sciaticaStart: 05-22-2018 End: 21-94-0283Gpndkpg encounter procedureDANIDIANA Lillycility:V1Ikptv: 05-02-2018 End: 66-50-9019Qdemdxfcc department patient visitPAFranciscan Health Dyer Procedures DateProcedureProcedure DetailPerforming ClinicianStart: 17-98-4703GAWWC MICRO Bill Ashwini Rogers MD Work Phone: Start: 21-45-8518Tddawglkfo with reflex to microscopy and cultureBill Rogers MD Work Phone: Start: 60-60-7080Wfvuy dip stick/tablet rgnt auto w/o microscopyBill Rogers MD Work Phone: Start: 89-80-1886Qsyfl rocio species direct probe tq Fahad Kessler MD Work Phone: start: 72-06-1801[place] of lipaseBill Rogers MD Work Phone: Start: 94-02-9283SNW AND ELECTRONIC DIFFBill Rogers MD Work Phone: Start: 34-45-4041Qykjualv blood count with white cell differential, automatedBill Rogers MD Work Phone: Start: 45-37-9746Iudysli function panelBill Rogers MD Work Phone: Start: 78-49-8374DKOD GREEN TOP TUBEBill Rogers MD Work Phone: Start: 14-07-8662KzbybrwgwcIprwte Amstmireya Alvarezberg Work Phone: Start: 85-80-2717Hhvbq metabolic 1998 panel - Serum or PlasmaVance Das Work Phone: Start: 18-07-6716Fvzrddaghmecqwnvji ( test) [Presence] in UrineVance Das Work Phone: Start: 51-12-2068Xrsxzmox blood count with white cell differential, automatedVance Das Work Phone: [phone]: 18-13-2351Jzhbfulp blood count with white cell differential, manualVance Das Work Phone: [phone]: 21-65-4138SJKK Mehrdad Das Work Phone: [phone]: 33-88-6198MHHGK BLUE Mehrdad Das Work Phone: [phone]: 79-05-7325LIPSI GREEN Mehrdad Das Work Phone: [phone]: 95-85-2089WFPB Mehrdad Das Work Phone: [phone]: 73-74-1640JEJSUYS DRAWVance Das Work Phone: [phone]: 65-78-7664RbkamucdfxCwggq Scott Reaves Work Phone: Plan of Treatment DateCare ActivityDetailAuthorStart: 94-52-4668Zbpqc BMI ScreeningAdult BMI ScreeningFayette [facility] Memorial Hospital SystemStart: 31-87-5327Qcryqhg ScreeningTobacco ScreeningFirstHealthtart: 73-08-1125Ryxwfnhpg vaccinationInfluenza VaccineProKettering Healthtart: 02-02-2025 End: 96-79-6983Hgrccum encounter cwszndgro59/29/2025 10:00 AM EDT Appointment [facility] - Ultrasound [address] [place] [address] DxdCevmniDetwiler Memorial Hospital - UltrasoundStart: 01-17-2025 End: 97-26-4940SK Pelvis transabdominal and transvaginalUltrasound pelvic with transvaginal Imaging Routine Adnexal cyst Expected: 01/17/2025, Expires: 01/05ProIntent HQca Work Phone: Comment on above:Expected: 01/17/2025, Expires: 01/17/2026Start: 42-51-7625QODZY-19 Vaccine ( season)COVID-19 Vaccine ( season)[facility] SystemStart: 31-52-1424Zuhucrhgd vaccinationINFLUENZA VACCINE (#1)[facility] CenterStart: 10-13-2020 DTaP,Tdap and Td Vaccines (7 - Td or Tdap)DTaP,Tdap and Td Vaccines (7 - Td or Tdap)[facility] SystemStart: 33-39-9832Vtkqxntir vaccination given Sequential Influenza Vaccine (#1)[facility]HealthStart: 31-93-0134Qlcnetxbl for malignant neoplasm of cervixOSU [facility] CenterStart: 87-42-2440Vjbww diphtheria, tetanus and acellular pertussis (DTaP) vaccinationTDAP (ADULT)OSMercy Health [facility] CenterStart: 00-34-5682Ecrppkpvi C antibody, confirmatory test Hepatitis C ScreeningOhioHealthStart: 27-69-4858Ubbvbxh vaccinationTETANUSOSMercy Health Urbana Hospital CenterStart: 28-70-6869Ufcgmkjee for Chlamydia trachomatis CHLAMYDIA SCREENOSU [facility] CenterStart: 15-21-1946CHJ screeningOSMercy Health Urbana Hospital CenterStart: 15-68-9732NODRK-19 VACCINE (1)COVID-19 VACCINE (1) OSMercy Health Urbana Hospital CenterStart: 72-89-5755Jduyjmahtp ScreeningDepression ScreeningProAvita Health Systemca Health SystemStart: 49-29-7101Xguxwonqarv for human papillomavirusOSU [facility] CenterStart: 09-44-8816Tuodxsi and physical examination, annual for health maintenanceJohnston Memorial Hospital VisitOhioHealthStart: 83-14-2238BHJGJOIUY SCREENGONORRHEA SCREENOSMercy Health Urbana Hospital CenterStart: 12-03-4771Pbuaalrjb C antibody, confirmatory testHEPATITIS C VIRUS SCREENINGOSU [facility] CenterStart: 42-25-6722Xqwdbmqkv for Chlamydia trachomatis Chlamydia ScreeningOhioHealthStart: 15-05-5489Gzersew vaccinationTetanus: Every 10yrsOhioHealthCHLAMYDIA & GONORRHEA AMPLIFIED PROBECHLAMYDIA & GONORRHEA AMPLIFIED PROBE Microbiology Routine 12/29/2020 9:03 PM [place] Work Phone: GOLD TOP TUBEGOLD TOP TUBE Lab STAT 12/29/2020 5:34 PM [place]LAVENDER TOP TUBELAVENDER TOP TUBE Lab STAT 12/29/2020 5:34 PM [place]LT BLUE TOP TUBELT BLUE TOP TUBE Lab STAT 12/29/2020 5:33 PM [place]ervilleRAINBOW DRAWRAINBOW DRAW Lab STAT 12/29/2020 5:33 PM [place] Work Phone: Immunizations Immunization DateImmunizationNotesCare RyzvnbzjXrlhwshh45-64-0325NXJR-BwB-0 (COVID-19) mRNA BNT-162b2 vaxMuhammad Sarmini [phone]-HegnpCleveland Clinic [facility] Hospital Digestive HealthComment on above:Result Comment: 2025-02-21: ZSLKX13-35-9758WWHH-UoC-8 (COVID-19) mRNA BNT- 162b2 vaxMuhammad Sarmini [phone]-YabklCleveland Clinic Eucl[facility] Hospital Digestive HealthComment on above:Result Comment: 2025-02-21: CAUFH05-18-5199dbgeuoprnwlaq ACWY vaccine, unspecified formulationMuhammad Sarmini 067-4071Aobivr-LiyrkC[facility] Clinic [facility] Hospital05-09-2011 tetanus toxoid, reduced diphtheria toxoid, and acellular pertussis vaccine, adsorbedMuhammad Sarmini 352-4899Zgtrdr-TtdwbCleveland Clinic [facility] Hospital Digestive Tspmlm15-73-3486 diphtheria, tetanus toxoids and acellular pertussis vaccineMuhammad Sarmini 082-4522Zmmpkb-QguxdCleveland Clinic [facility] Hospital Digestive Xdxyxg91-33-5659 measles, mumps and rubella virus vaccineMuhammad Sarmini 207-7682Bjcfhy-VouciC[facility] Clinic [facility] Hospital Digestive Vrcrcf28-58-0345 poliovirus vaccine, unspecified formulationMuhammad Sarmini 608-5377Baabge-CqvslC[facility] Clinic [facility]11-13-2000 DTaP, unspecified formulationMuhammad Sarmini 252-5181Atwaxb-BnjywC[facility] Clinic [facility] Hospital11-13-2000 Hib, unspecified formulationMuhammad Sarmini 083-8639Mthnol-RmxnuC[facility] Clinic [facility]05-15-2000 measles, mumps and rubella virus vaccineMuhammad Sarmini 992-8417Gvcrmy-DpoafC[facility] Clinic [facility]05-15-2000 poliovirus vaccine, unspecified formulationMuhammad Sarmini 515-6273Whwbfs-Ylajt[address] [place], [place] [address]23605-15-2000 varicella virus vaccineMuhammad Sarmini 460-6224Ggwihl-LvawnC[facility] Clinic [facility] Hospital01-19-2000 DTaP, unspecified formulationMuhammad Sarmini 294-9032Vlpfdi-Xenjc[address] [place], [place] 7523610-15-1999 DTaP, unspecified formulationMuhammad Sarmini 338-4964Rgigvk-Czcxu[address] [place], [place] 7523610-15-1999 Hib, unspecified formulationMuhammad Sarmini [phone]-Hdhfw[address] [place], [place] 7523610-15-1999 poliovirus vaccine, unspecified formulationMuhammad Sarmini [phone]-XpsqmC[facility] Clinic [facility] Hospital08-13-1999 DTaP, unspecified formulationMuhammad Sarmini 221-0093Sdxdcs-AxgrzC[facility] Clinic [facility] Hospital08-13-1999 poliovirus vaccine, unspecified formulationMuhammad Sarmini 015-8468Rvqtln-Wqttw[address] [place], [place] 4073705-12-1999 hepatitis B vaccine, pediatric or pediatric/adolescent dosageMuhammad Sarmini [phone]-Otqvb[address] [place] [address] [facility] Payers DatePayer CategoryPayerPolicy [id number] Health Insurance [id number] Managed Care - [facility] [id number] Health Insurance [id number] [id number] 2.16840.1.077808.3.57[id number] 2.16840.1.341259.3.57[id number] 2.840.1.730238.3.57[id number] 2.16840.1.880407.3.57[id number] 2.16840.1.821508.3.57[id number] 2.16840.1.359253.3.57[id number] 2.16840.1.765819.3.57[id number] 2.16840.1.312921.3.57[id number] 2.16.840.1.010305.3.57[id number] 2.16.840.1.408041.3.57[id number] Social History DateTypeDetailFacilityStart: 04-12-2020 End: 83-58-0570Blhwbwz smoking status NHISNever smokerOhioHealthStart: 04-12-2020 End: 38-89-2434Bzwtnae use and exposureNever usedOhioHealthStart: 04-12-2020 Alcohol intakeLifetime non-drinker (finding)OhioHealthStart: [id number] SDOH Alcohol Mdupsmedv8ZnphLevgjrHwwuk: [id number] Assigned At BirthNot on fileOhioHealthExposure to SARS-CoV-2 (event)Not sureOhioHealthStart: 12-29-2020 Alcohol intakeCurrent drinker of alcohol (finding)[facility] Start: 67-03-8009Ggkgiue CommentsocialOSTrinity Health System West Campustart: 11-16-2018 End: 34-75-4386Rvc Assigned At [facility] [employer] Other Start: 52-17-6456Hxuijubgw beverage intakeEx-drinker (finding)[facility] Valderm SystemStart: 11-16-2018 End: 29-25-1292Djtkmna of Social functionProMedica Health SystemChildcareUnknown [facility] SystemStart: 03-25-5449HbkHhxjqu (finding)[facility] History of Present illness Narrative 01-17-2025 Note Date & [id number] History of Present illness Narrative* Alexus Elizabeth APRN-CLAUDIA - 01/17/2025 2:30 PM EDT Sonia Landry is a 24 y.o. female new patient. Patient's last menstrual period was 12/26/2024 (exact date). She presents today for a left ovarian cyst follow up. Periods are regular with 6 days of bleeding. The first day of her period is moderate-heavy flow and then tapers to light. Shehas mid- cycle ovulation pain. Pt was seen at [facility] 12/10/24 for upper abdominal pain and diarrhea. CT scan showed an incidental finding of 2.4 cm left adnexal cyst. She has an appt with GI at the end of February for ongoing stomach problems. Last pap 09/21/23 neg/neg (care everywhere) No hx STI Current contraception: n/a - not currently sexually active OB History 0 Para 0 Term 0 0 AB 0 Living 0 SAB 0 IAB 0 Ectopic 0 Multiple 0 Live Births 0 MEDICAL HX Past Medical History: Diagnosis Date 2021 SURGICAL HX History reviewed. No pertinent surgical history. FAMILY HX Family History Problem Relation Age of Onset Diabetes Paternal Grandfather Arthritis Paternal Grandmother Kidney disease Paternal Grandmother Stroke Paternal Grandmother Uterine cancer Paternal Grandmother Alcohol abuse Father Arthritis Mother Depression Mother Hypertension Mother Breast cancer Neg Hx Colon cancer Neg Hx Ovarian cancer Neg Hx MEDS Current Outpatient Medications Medication Sig Dispense Refill esomeprazole (NexIUM) 40 mg capsule Take 1 capsule (40 mg total) by mouth every morning before breakfast. ondansetron ODT (ZOFRAN ODT) 4 mg disintegrating tablet Dissolve 1 tablet (4 mg total) on tongue asneeded for nausea. No current facility-administered medications for this visit. ALLERGIES No Known Allergies Review of Systems 10 or more systems reviewed and all negative except stated in hpi. Objective BP 98/60 Ht 162.6 cm (5' 4 ) Wt 49.4 kg (109 lb) LMP 12/26/2024 (Exact Date) BMI 18.71 kg/m Physical Exam Vitals and nursing note reviewed. Constitutional: General: She is not in acute distress. Appearance: Normal appearance. She is not ill-appearing. HENT: Head: Normocephalic and atraumatic. Nose: No rhinorrhea. Eyes: Extraocular Movements: Extraocular movements intact. Pulmonary: Effort: Pulmonary effort is normal. No respiratory distress. Musculoskeletal: General: Normal range of motion. Cervical back: Normal range of motion. Neurological: General: No focal deficit present. Mental Status: She is alert. Psychiatric: Mood and Affect: Mood normal. Behavior: Behavior normal. Thought Content: Thought content normal. Judgment: Judgment normal. Assessment/Plan: Sonia was seen today for ovarian cyst. Diagnoses and all orders for this visit: Adnexal cyst - Ultrasound pelvic with transvaginal; Future Discussed CT is not the best imaging modality to evaluate adnexal cysts. We discussed simple physiologic ovarian cysts vs. more concerning pathologic cysts. US is helpful to further evaluate and characterize the cyst. Pt to call and schedule US, will notify pt when report is available. RTO annual exam, change or concern MAUREEN Sweet APRN-CNP 01/17/25 1513 documented in [facility] encounterSt[facility] 02-18-2023 Note Date & [id number] Evaluation note* Encounter Date Diagnosis Assessment Notes Treatment Notes Treatment Clinical Notes Feb, Viral URI with cough (ICD-10 - J 06.9) No testing performed today in office. Discussed [...] for fever/discomfort, cool mist humidifier. May use Gerlach as needed for cough, do not take any other OTCs while using Gerlach. Patient to follow up with PCP in 2-3 days. Immediate eval if SOB, difficulty breathing, chest pain, dizziness, or other concerning symptoms. Patient verbalizes understanding and is agreeable to treatment plan [employer] Other Emergency department Note 12-29-2020 Note Date & [id number] Emergency department Note* Deja Coffman RN - 12/29/2020 11:50 PM EDT Post void residual 42ml * Ac Arvizu MD - 12/29/2020 7:46 PM EDT dEPARTMENT of Emergency Medicine CHIEF COMPLAINT Abdominal Pain and Constipation HPI Sonia Landry is a 20 y.o. female who presents with history of GERD complains of lower abdominal pain associated with constipation for 10 days and nausea. There is no fever or vomiting. There areno aggravating or relieving factors. REVIEW OF SYSTEMS [...] Social Gatherings with Friends and Family: Attends [employer] Services: Active Member of Clubs or Organizations: [...] plan of care. Ac Arvizu MD 12/29/201947 * Fahad Kessler MD - 12/29/2020 7:20 PM EDT dEPARTMENT of Emergency Medicine CHIEF COMPLAINT Abdominal Pain and Constipation HPI Sonia Landry is a 20 y.o. female who presents [...] Social Gatherings with Friends and Family: Attends [employer]: Active Member of Clubs or Organizations: [...] hernia, or organomegaly appreciated. Genitourinary: Chaperoned by IDENTIFICATION OFFICER, no bleeding, cervix closed, thin white [...] out to oncoming team pending UA and re- evaluation. Does not need to have BM here in ED prior to discharge if no other concerns. The patient was updated regarding findings, and was re-assessed during ED stay. Disposition: pending I discussed the patient with the attending physician, Dr. Arvizu. This note dictated using medical dictation software. Attempts at proofreading were made, but errors may occasionally still occur. Fahad Kessler MD Resident 12/29/20 0433 * Diana Parks RN - 12/29/2020 5:15 PM EDT Pt states she hasn't had a bowel movement x 1 week. Associated lower bilateral abd pain. States vomited once earlier today. Associated acid reflux. Attempted ex-lax OTC and fiber gummies at home without relief. documented in this encounterOSC[facility] + Plan note Note Date & TypeNoteFacilityEvaluation + Plan note No data available for this section [facility] Evaluation note Note Date & TypeNoteFacilityEvaluation note* Diagnosis Constipation, unspecified constipation type- Primary documented in this encounter [facility] Evaluation note Note Date & TypeNoteFacilityEvaluation note* Diagnosis Adnexal cyst- Primary documented in this encounter [facility] Hospital Discharge instructions Note Date & TypeNoteFacilityHospital Discharge instructions* Instructions* Fransico Albert MD - 12/30/2020 You were [...] department. [facility] PHYSICIAN REFERRAL Please call the [facility] physician referral service at or toll-freeat to request a Primary Care Provider. You can also refer to the [facility] provider list that you were given. CLINICAL SOIL FERTILITY EXTENSION SPECIALIST If you need any further assistance with scheduling follow up care, please call the Clinical Pack Worker Supervisor at . * Attachments The following attachments cannot be sent through Care Everywhere. * Constipation ([place]) documented in this encounterOSCleveland Clinic [facility] Hospital Hospital Discharge instructions Note Date & TypeNoteFacilityHospital Discharge instructions No data available for this section [facility] Instructions Note Date & TypeNoteFacilityInstructionsNot on filedocumented in this encounter [facility] Progress note Note Date & TypeNoteFacilityProgress note No data available for this section [facility] Summary Purpose Family History No Family History Records FoundNo Family History Records FoundNo Family History Records FoundNo Family History Records FoundNo Family History Records FoundNo Family History Records FoundNo Family History Records Found No data available for this section No Family History Records Found Advance Directives No Advanced Directives Records FoundDocuments on File TypeDate RecordedPatient RepresentativeExplanationAdvance Directives and Living Will04/13/2020 12:40 AM Discharge Instructions * Instructions* Mitch [...] ER visit was above 120/80 mmHg. The [place] Heart Association (AHA) defines a normal blood [...] review at your convenience for more information: [email or web address] * Attachments The following attachments cannot be sent through Care Everywhere. * Appendicitis ([place]i) documented in this encounter Assessments Diagnosis Abdominal pain, unspecified abdominal location- Primary Acute bilateral low back pain without sciatica Additional Source Comments INFORMATION SOURCE (unrecogn ized section and content) DATE CREATED AUTHOR 05/16/2018 [facility] DATE CREATED AUTHOR AUTHOR'S ORGANIZ ATION 08/10/2018 [facility] DATE CREATED AUTHOR AUTHOR'S ORGANIZ ATION 04/23/2020 [facility] DATE CREATED AUTHOR AUTHOR'S ORGANIZ ATION 01/15/2021 [facility] DATE CREATED AUTHOR AUTHOR'S ORGANIZ ATION 09/26/2023 [facility] EPIC DATE CREATED AUTHOR AUTHOR'S ORGANIZ ATION 01/19/2025 [facility] DATE CREATED AUTHOR AUTHOR'S ORGANIZ ATION 02/10/2025 [facility] DATE CREATED AUTHOR AUTHOR'S ORGANIZ ATION 03/22/2025 [facility] Reason for Visit (unrecogniz ed section and content) ReasonCommentsAbdominal PainReasonCommentsAbdominal PainConstipationReason CommentsOvarian CystPatient presents for a left ovarian cyst Mitch Mccarthy PA-C - 04/13/2020 12:21 AM EST ED Notes (unrecognized secti on and [...] file Gets together: Not on file Attends lutheran service: Not on file Active member of club or organization: Not on file Attends meetings of clubs or organizations: Not on file Relationship status: Not on file Other Topics Concern Not on file Social History Narrative Not on file Allergies No Known Allergies Medications Sonia Landry [place] Medication Instructions Prior to Surgery HUSEYIN:[id number] Printed on:04/13/20 035 Medication Information Take last dose on Take [...] % 5' 6 104.3 kg (230 lb) 04/12/201944 (!) 125 04/12/201929 137/86 98.3 F (36.8 C) Oral (!) [...] following components: Clarity, Urine Hazy (*) Specific [place] 1.032 (*) Leukocyte Esterase, Urine Trace (*) [...] following components: Clarity, Urine Hazy (*) Specific [place] 1.038 (*) Ketones, Urine 20 (*) Bacteria, [...] Procedure Abnormality Status --------- ------ CBC Auto Differential[[id number]] Abnormal Final result Please view results for [...] order any imaging. She does have a mildleukocytosis of 12.11 with absolute neutrophils 9.14. Urinalysis shows few bacteria with 5 squamousepithelials. Initially patient was given a liter bolus normal IV saline for her tachycardia. When Ilooked back in her chart her previous visit [...] without sciatica Mitch Mccarthy PA-C 04/13/20 0353 * Aakash Franklin RN - 04/13/2020 12:17 AM EST Pt from triage ,states feel like has kidney infection, cramping burning pain in abd, last several minutes then goes away, no problem urinating. Tylenol was taken, has hx of kidney infection. No pain right now * Laurence Carson RN - 04/12/2020 7:26 PM EST Pt arrives with c/o kidney infection, thinks it started earlier this month, but this week was bad. States abd cramping and pain. documented in this encounter Scheduled Active and Recently Administ ered Medications (unrecognized section and content) Medication Order/// magnesium citrate (MAGCITRATE) oral solution 296 mL (COMPLETED) 296 mL (1 Bottle), Oral, ONCE, 1 dose, On 12/29/20 at 2115 * 2135 (Given - Provider: Deja Coffman RN) ondansetron (ZOFRAN-ODT) disintegrating tablet 8 mg 8 mg, Oral, ONCE, 1 dose, On 12/29/20 at 2315 * 2329 (Hold - Provider: Deja Coffman RN - Reason: Order Parameters not met) Care Teams (unrecognized sec tion and content) Team MemberRelationshipSpecialtyStart DateEnd Date Cristin Delgado MD [address] [place] [address] [facility] FOR RECORDS PERTAINING TO PATIENTS WHO ARE [...] BE BASED ON THE PRIMARY CLINICAL RECORDS. [employer] [facility]. provides no warranty or guarantee of the accuracy or completeness of information in this document.
[2025-03-27 13:24] VITALS: BP 110/70; PULSE 68; O2SAT 98
== END 2025-03-27 14:03 | disposition home or self-care (01) ==
PROVIDERS: Emergency Provider Emergency Medicine
DX: S09.8XXA Other specified injuries of head, initial encounter (principal); S13.9XXA Sprain of joints and ligaments of unspecified parts of neck, initial encounter; W22.09XA Striking against other stationary object, initial encounter; Y93.9 Activity, unspecified; Y92.512 Supermarket, store or market as the place of occurrence of the external cause
CPT/HCPCS: 70450; 72125; 76376; 96372; 99284; J1885; J2360